=== PATIENT | female | born 1945 | race Caucasian/White ===

== ENCOUNTER → 2017-12-15 | Outpatient (CLI) | payer MEDICARE, BC ==
[~2017-12-15] MED LIST: ADVAIR INH; ALBUTEROL SULF INH; ALBUTEROL TX; ALBUTEROL1.25 MG/3 NEB; ANORO INH; ASPIRIN81 M3 PO; BACTRIM DS TAB1 EACH PO; BUDESONIDE0.5 MG/2 M NEB; CALCIUM 600 MG1 EAC4 PO; CIMETIDINE300 MG PO; LORTAB 10-5001 EACH PO; MIRALAX PO; MIRALAX119 GM PO; MIRALAX255 GM PO; OXYGEN NS; PREDNISONE20 MG PO; PRILOSEC40 MG PO; PROAIR HFA INH8.5 GM INH; PROAIR HFA INH8.5 GM PO; PROPYLTHIOURACI50 MG PO; STOOL SOFTENER1 EAC2 PO; TYLENOL PO; ULTRAM 50MG50 MG PO; Z.0.BISOPROLOL FUMAR PO; Z.0.DORZOLAMIDE-TIM1 OU; Z.0.MULTIVITAMINS1 E PO; Z.0.NORVASC10 MG PO; Z.0.SIMVASTATIN20 MG PO; ZANTAC150 MG PO; ZEBETA10 MG PO; [UNRECOGNIZED DRUG - OTHER]; [UNRECOGNIZED DRUG - OTHER] PO
--- NOTE | 2017-12-15 10:23 | Diagnostic Imaging Report ---
PROCEDURE:X-RAY RIGHT SHOULDER, COMPLETE COMPARISON:Chest radiograph 02/02/17. INDICATIONS:RIGHT SHOULDER PAIN FINDINGS: No acute, displaced fracture or dislocation. The humeral head projects appropriately adjacent to the glenoid. Moderate degenerative changes of the acromioclavicular and glenohumeral joints. Soft tissues unremarkable. Right lung partially visualized, well aerated. Stable midlung calcification relative to chest radiograph 02/02/2017. CONCLUSION: No acute osseous abnormality. Moderate acromioclavicular and glenohumeral degenerative joint disease. Dictated by: Alex Porter M.D. on 12/15/2017 at 10:29 Electronically approved by: Alex Porter M.D. on 12/15/2017 at 10:29
== END ==
LOC: RAD 09:44
PROVIDERS: ATTEND Family Medicine
DX: M25.511 Pain in right shoulder (principal)

== ENCOUNTER 2018-01-30 22:05 | Emergency (ER) | payer MEDICARE, BC ==
[~2018-01-30] VITALS: Ht 154.9 cm; Wt 43.5 kg
--- OUTSIDE RECORDS SUMMARY | 2018-01-30 22:10 | XMS REPORT ---
Author Author [facility] Address Unknown Phone Unavailable Care Team Providers Care Architectural Examiner Name Role Phone Ronald MCBRIDE Unavailable Unavailable SWEET, Mary LAIRD Unavailable Unavailable Problems This patient has no known problems. Allergies, Adverse Reactions, Alerts This patient has no known allergies or adverse reactions. Medications This patient has no known medications. Results Test Description Test Time Test Comments Text Results Atomic Results Result Comments SHOULDER RIGHT COMPLETE 2017-12-15 10:29:00 [facility] [address] [address] Patient Name: EVAN MICHAEL MR #: [id number] : 1945 Age/Sex: 72/F Req #: [id number] Adm Physician: Ordered by: JOSEPH MCBRIDE MD Report #: [id number] Location: [facility] Room/Bed: Procedure: [id number] DX/SHOULDER RIGHT COMPLETE Exam Date: 12/15/17 Exam Time: 1000 REPORT STATUS: Signed PROCEDURE: X-RAY RIGHT SHOULDER, COMPLETE COMPARISON: Chest radiograph 02/02/17. INDICATIONS: RIGHT SHOULDER PAIN FINDINGS: No acute, displaced fracture or dislocation. The humeral head projects appropriately adjacent to the glenoid. Moderate degenerative changes of the acromioclavicular and glenohumeral joints. Soft tissues unremarkable. Right lung partially visualized, well aerated. Stable midlung calcification relative to chest radiograph 02/02/2017. CONCLUSION: No acute osseous abnormality. Moderate acromioclavicular and glenohumeral degenerative joint disease. Dictated by: Matias Garrett M.D. on 12/15/2017 at 10:29 Electronically approved by: Matias Garrett M.D. on 12/15/2017 at 10:29 Dictated By: MATIAS GARRETT MD 1029 Transcribed By: RAJI on 12/15/17 1029 COPY TO: JOSEPH MCBRIDE MD CT CHEST [address] [place] [address] Patient Name: EVAN MICHAEL MR #: [id number] : 1945 Age/Sex: 71/F Req #: [id number] Adm Physician: Ordered by: AMMON ALMENDAREZ MD Report #: [id number] Location: ER Room/Bed: Procedure: [id number] CT/CT CHEST W Exam Date: 02/02/17 Exam Time: 2215 REPORT STATUS: Signed EXAM: CT Chest WITH contrast 02/02/2017 10:05 PM INDICATION: Pulmonary embolism, shortness of breath, elevation the dimer. COMPARISON: Thoracic spine on 12/10/2016 TECHNIQUE: Chest was scanned utilizing a multidetector helical scanner from the lung apex through the level of the adrenal glands without administration of IV contrast. Coronal and sagittal reformations were obtained. Pulmonary embolism protocol was performed. IV CONTRAST: 100 mL of Isovue-370 RADIATION DOSE: Total DLP: 329.08 mGy*cm Estimated effective dose: (DLP x 0.014 x size factor) mSv COMPLICATIONS: None FINDINGS: LINES/ TUBES: None. LUNGS AND AIRWAYS: Mild centrilobular emphysema present. Calcified granuloma noted in the right lower lobe. Airways are normal. PLEURA: The pleural spaces are cl ear. HEART AND MEDIASTINUM: The thyroid gland is normal. No mediastinal, hilar or axillary lymphadenopathy. The heart is normal in size.. There is no pericardial effusion. There are mild atherosclerotic calcifications in the aorta and coronary arteries. The pulmonary artery measures 2.8 cm in diameter UPPER ABDOMEN: Limited non-contrast views of the upper abdomen show no abnormality within the visualized liver, spleen, pancreas, or kidneys. The adrenal glands are normal. BONES: Chronic deformity of T8 status post vertebroplasty consistent with subacute/recent fracture, new when compared with prior MRI on 12/10/2016 SOFT TISSUES: Unremarkable. IMPRESSION: 1. No evidence of pulmonary embolism. 2. Centrilobular emphysema is present. 3. Atherosclerotic disease of the thoracic aorta and branches including coronary arteries 4. T8 vertebroplasty status post compression deformity. Signed by: Dr. Kaz Reyes M.D. on 02/02/2017 11:11 PM Dictated By: KAZ BECK MD 10 Transcribed By: LUCINDA on 02/02/172310 COPY TO: AMMON ALMENDAREZ MD CHEST SINGLE (PORTABLE) [place] [address] Patient Name: EVAN MICHAEL MR #: [id number] : 1945 Age/Sex: 71/F Req #: [id number] Adm Physician: Ordered by: BENJIE MCKEON Report #: [id number] Location: ER Room/Bed: Procedure: [id number] DX/CHEST SINGLE (PORTABLE) Exam Date: 02/02/17 Exam Time: 1919 REPORT STATUS: Signed Examination: Single AP view of the chest. COMPARISON: None. INDICATION: Shortness of breath DISCUSSION: Lines/tubes: None. Lungs: Prominent interstitial markings. Linear granuloma right midlung. No focal pneumonia. Pleura: There is no pleural effusion or pneumothorax. Heart and mediastinum: The heart and the mediastinum are unremarkable. Bones and soft tissues: No acute bony abnormalities. IMPRESSION: 1. No acute cardiopulmonary abnormalities. Signed by: Dr. Danielle Dash M.D. on 02/02/2017 7:38 PM Dictated By: DANIELLE DASH MD 37 Transcribed By: LUCINDA on 02/02/171937 COPY TO: BENJIE MCKEON MRI SPINE THORACIC [address] [place] [address] Patient Name: EVAN MICHAEL MR #: [id number] : 1945 Age/Sex: 71/F Req #: [id number] Adm Physician: Ordered by: JOSEPH MCBRIDE MD Report #: [id number] Location: MRI Room/Bed: Procedure: [id number] MRI/MRI SPINE THORACIC WO Exam Date: 12/10/16 Exam Time: 934 REPORT STATUS: Signed EXAMINATION: MRI of the thoracic spine without contrast HISTORY: Compression fracture, pain after moving things about a week ago COMPARISON: None. TECHNIQUE: Sagittal T1 without contrast, T2, and STIR; axial T2. Coronal T2. Intravenous contrast: none FINDINGS: Curvature: Increased thoracic kyphosis Vertebrae: -Acute mild compression fracture of T8 with diffuse bone marrow edema indicates that the vertebral body height by approximately 20%, no posterior retropulsion and no canal stenoses. -Deep Schmorl node in the inferior endplate of T9 with mild decreased vertebral body height. -Mild chronic compression fracture of the T5 and T6 vertebral bodies without significant retropulsion or canal stenosis. Discs: Mild diffuse disc at the T7-T8 T8-T9 and T9-T10 without significant stenoses. Spinal canal: No mass or abnormal blood vessels. Spinal cord: Normal size and signal intensity. Foramina: Unremarkable. Paraspinal soft tissues: Partially visualized T2 hyperintense foci in the liver and kidneys, perhaps cysts, please see dictation of abdomen CT of 02/11/2015 Proximal ribs: No abnormal signal intensity. IMPRESSION: 1. Acute mild compression fracture of the T8 vertebral body without posterior retropulsion or canal stenosis. No cord compression. 2. Mild chronic compression fracture of the T5 and T6 vertebral bodies. 3. Associated increased thoracic kyphosis. The findings were discussed with the attending physician's MURAL PAINTER Yaritza Jaimes on 12/11/2016 at 3:00 PM Signed by: Dr. Ankit Hernandez M.D. on 12/11/2016 3:11 PM Dictated By: ANKIT HERNANDEZ MD 1511 Transcribed By: LUCINDA on 12/11/16 1511 COPY TO: JOSEPH MCBRIDE MD
[2018-01-30] MEDS ORDERED: LIDOCAINE/PRILOCAINE 2.5-2.5% KIT ONE (23:06)
[2018-01-30] MEDS ORDERED: HYDROCODONE/APAP 5MG-325MG TAB ONE (23:06)
[2018-01-30] MEDS ORDERED: HYDROCODONE/APAP 5MG-325MG TAB PO ONE (23:15)
[2018-01-30] MEDS ORDERED: LIDOCAINE 5% PATCH TP ONE (23:15)
--- NOTE | 2018-01-30 23:30 | Diagnostic Imaging Report ---
EXAM: HIP LEFT 2-3 VW (+/- PELVIS) INDICATION: Fall, left hip and left knee pain COMPARISON: None FINDINGS: BONES: No acute fractures. JOINTS: No malalignment. SOFT TISSUES: Normal IMPRESSION: No acute pelvic or left hip fracture. Signed by: Dr. Luiza Carpio M.D. on 01/30/2018 11:26 PM
--- NOTE | 2018-01-30 23:31 | Diagnostic Imaging Report ---
EXAM: KNEE LEFT 1-2 VIEWS, AP and lateral INDICATION: Fall, left knee pain COMPARISON: None FINDINGS: BONES: No acute fractures. JOINTS: No malalignment. Calcification of the articular surface. SOFT TISSUES: Normal IMPRESSION: No left knee fracture. Chondrocalcinosis indicating CPPD. Signed by: Dr. Luiza Carpio M.D. on 01/30/2018 11:27 PM
[2018-01-30] MEDS ORDERED: ULTRAM50 MG PO (23:34)
[2018-01-31 00:03] VITALS: BP 122/88
== END 2018-01-30 23:59 | disposition home or self-care (01) ==
LOC: ER 22:05
DX: S76.012A Strain of muscle, fascia and tendon of left hip, initial encounter (principal); M25.552 Pain in left hip; M25.562 Pain in left knee; W18.39XA Other fall on same level, initial encounter; Y92.008 Other place in unspecified non-institutional (private) residence as the place of occurrence of the external cause; H35.30 Unspecified macular degeneration; F17.210 Nicotine dependence, cigarettes, uncomplicated

== ENCOUNTER 2018-04-06 21:09 | Emergency (ER) | payer MEDICARE, BC ==
[~2018-04-06] VITALS: Ht 154.9 cm; Wt 42.6 kg
[~2018-04-06 21:09] MED LIST changes: +ULTRAM50 MG PO
[2018-04-06] MEDS ORDERED: ASPIRIN 81 MG CHEW TAB PO ONE (21:15)
[2018-04-06] MEDS ORDERED: ALBUTEROL SULF 0.083% NEB SOLN 3 ML NEB NEB STA (21:17)
[2018-04-06] MEDS ORDERED: METHYLPREDNISOLONE SOD SUCC 125 MG/2ML VIAL IV ONE (21:30)
[2018-04-06] MEDS ORDERED: IPRATROPIUM BROMIDE 0.02% 2.5 ML NEB NEB ONE (21:30)
--- NOTE | 2018-04-06 22:02 | Diagnostic Imaging Report ---
CHEST SINGLE (PORTABLE), 04/06/2018 9:15 PM Technique: CHEST SINGLE (PORTABLE) Comparison: 02/02/2017 Clinical history: Shortness of breath Findings: See Impression. Partially imaged ACDF. Prior vertebroplasty. Impression: 1. Stable cardiomediastinal silhouette. 2. Emphysema/hyperinflation. Minimal right basilar and lingular opacity, stable. Increased density over the upper lung favor summation shadow related to technique. 3. No effusion or pneumothorax. Signed by: Dr Delma Cates MD on 04/06/2018 9:58 PM
[2018-04-06 22:03] LABS: BASOPHILS # (AUTO) 0.1 (0.0-0.1); BASOPHILS % 0.4 % (0.0-1.0); EOSINOPHILS # (AUTO) 0.1 (0.0-0.4); EOSINOPHILS % 0.6 % (0.0-6.0); HEMATOCRIT 43.1 % (34.2-44.1); HEMOGLOBIN 13.8 g/dL (12.0-16.0); LYMPHOCYTES # (AUTO) 1.6 (1.0-3.2); MEAN CORPUSCULAR HEMOGLOBIN 29.6 pg (28-32); MEAN CORPUSCULAR VOLUME 92.5 fL (81-99); MONOCYTES # (AUTO) 1.1 (0.2-0.8); MONOCYTES % 7.1 % (4.4-11.3); NEUTROPHILS # (AUTO) 12.7 (2.1-6.9); NEUTROPHILS % 81.6 % (38.7-80.0); PLATELET COUNT 318 x10e3/uL (140-360); RED BLOOD COUNT 4.66 x10e6/uL (3.6-5.1); RED CELL DISTRIBUTION WIDTH 12.8 % (11.7-14.4)
[2018-04-06 22:24] LABS: ALANINE AMINOTRANSFERASE 17 IU/L (0-55); ALBUMIN 3.8 g/dL (3.5-5.0); ALBUMIN/GLOBULIN RATIO 1.3 (0.8-2.0); ALKALINE PHOSPHATASE 96 IU/L (40-150); ANION GAP 13.8 mmol/L (8-16); BLOOD UREA NITROGEN 10 mg/dL (7-26); BUN/CREATININE RATIO 13 (6-25); CALCIUM 10.5 mg/dL (8.4-10.2); CARBON DIOXIDE 27 mmol/L (22-29); CHLORIDE 98 mmol/L (98-107); CREATINE KINASE 38 IU/L (29-168); CREATININE, SERUM 0.77 mg/dL (0.57-1.11); EST GLOMERULAR FILTRATION RATE > 60 ML/MIN (60-); GLUCOSE 118 mg/dL (74-118); POTASSIUM 3.8 mmol/L (3.5-5.1); SODIUM 135 mmol/L (136-145)
== END 2018-04-06 23:02 | disposition home or self-care (01) ==
LOC: ER 21:09
DX: R06.00 Dyspnea, unspecified (principal); R05 Cough; J20.9 Acute bronchitis, unspecified; J44.1 Chronic obstructive pulmonary disease with (acute) exacerbation; Z99.81 Dependence on supplemental oxygen; H35.30 Unspecified macular degeneration; F17.210 Nicotine dependence, cigarettes, uncomplicated
CPT/HCPCS: 36415; 71045; 80053; 82550; 82553; 83880; 84484; 85025; 93005; 94640; 99284; J2930

== ENCOUNTER 2018-11-04 23:03 | Emergency (ER) | payer MEDICARE, BC ==
[~2018-11-04] VITALS: Ht 154.9 cm; Wt 42.6 kg
[2018-11-04] MEDS ORDERED: ALBUTEROL/IPRATROPIUM 3 ML NEB NEB STA (23:24)
[2018-11-04 23:30] LABS: BASOPHILS # (AUTO) 0.1 (0.0-0.1); BASOPHILS % 0.7 % (0.0-1.0); EOSINOPHILS # (AUTO) 0.1 (0.0-0.4); EOSINOPHILS % 1.8 % (0.0-6.0); HEMATOCRIT 40.4 % (34.2-44.1); HEMOGLOBIN 12.9 g/dL (12.0-16.0); LYMPHOCYTES # (AUTO) 1.8 (1.0-3.2); LYMPHOCYTES % 24.9 % (18.0-39.1); MEAN CORPUSCULAR HEMOGLOBIN 29.5 pg (28-32); MEAN CORPUSCULAR HGB CONC 31.9 g/dL (31-35); MEAN CORPUSCULAR VOLUME 92.4 fL (81-99); MONOCYTES # (AUTO) 1.1 (0.2-0.8); NEUTROPHILS # (AUTO) 4.2 (2.1-6.9); NEUTROPHILS % 57.2 % (38.7-80.0); PLATELET COUNT 254 x10e3/uL (140-360); RED BLOOD COUNT 4.37 x10e6/uL (3.6-5.1)
[2018-11-05] MEDS ORDERED: PREDNISONE20 MG PO
--- NOTE | 2018-11-05 00:07 | Diagnostic Imaging Report ---
EXAMINATION: CHEST SINGLE (PORTABLE) INDICATION: SOB, HX COPD COMPARISON: 04/06/2018. FINDINGS: TUBES and LINES: None. LUNGS: The lungs are hyperinflated. Biapical pleural-parenchymal scarring. Diffuse coarsened pulmonary interstitium particularly in the lower lobes. There is no evidence of pneumonia or pulmonary edema. PLEURA: No pleural effusion or pneumothorax. HEART AND MEDIASTINUM: The cardiomediastinal silhouette is unremarkable. There are atherosclerotic calcifications within the aorta. BONES AND SOFT TISSUES: No acute osseous lesion. Lower cervical fusion hardware. UPPER ABDOMEN: No free air under the diaphragm. IMPRESSION: COPD and chronic interstitial changes. No focal consolidation. Signed by: Dr. Foreign Velez M.D. on 11/05/2018 12:04 AM
[2018-11-05 00:31] VITALS: BP 124/83
[2018-11-05 05:34] LABS: ALANINE AMINOTRANSFERASE 18 IU/L (0-55); ALBUMIN 3.9 g/dL (3.5-5.0); ALBUMIN/GLOBULIN RATIO 1.3 (0.8-2.0); ALKALINE PHOSPHATASE 101 IU/L (40-150); ANION GAP 13.1 mmol/L (8-16); BLOOD UREA NITROGEN 11 mg/dL (7-26); BUN/CREATININE RATIO 17 (6-25); CALCIUM 10.4 mg/dL (8.4-10.2); CARBON DIOXIDE 28 mmol/L (22-29); CHLORIDE 103 mmol/L (98-107); CREATININE, SERUM 0.66 mg/dL (0.57-1.11); EST GLOMERULAR FILTRATION RATE > 60 ML/MIN (60-); GLUCOSE 103 mg/dL (74-118); POTASSIUM 4.1 mmol/L (3.5-5.1); SODIUM 140 mmol/L (136-145)
== END 2018-11-05 00:32 | disposition home or self-care (01) ==
LOC: ER 23:03
DX: R06.00 Dyspnea, unspecified (principal); J44.1 Chronic obstructive pulmonary disease with (acute) exacerbation; H35.30 Unspecified macular degeneration; Z99.81 Dependence on supplemental oxygen; F17.210 Nicotine dependence, cigarettes, uncomplicated
CPT/HCPCS: 36415; 71045; 80053; 85025; 93005; 94640; 99284

== ENCOUNTER 2018-11-10 08:13 | Emergency (ER) | payer MEDICARE, BC ==
[~2018-11-10] VITALS: Ht 154.9 cm; Wt 42.6 kg
[2018-11-10] MEDS ORDERED: ALBUTEROL/IPRATROPIUM 3 ML NEB NEB ONE (08:45)
[2018-11-10] MEDS ORDERED: CEFTRIAXONE SOD 1 GM/NS 50 ML 50 ML IV ONE (08:45)
[2018-11-10] MEDS ORDERED: METHYLPREDNISOLONE SOD SUCC 125 MG/2ML VIAL IV ONE (08:45)
[2018-11-10 09:08] LABS: BASOPHILS % 0.2 % (0.0-1.0); EOSINOPHILS % 0.4 % (0.0-6.0); LYMPHOCYTES # (AUTO) 1.4 (1.0-3.2); LYMPHOCYTES % 13.8 % (18.0-39.1); MEAN CORPUSCULAR HEMOGLOBIN 29.2 pg (28-32); MEAN CORPUSCULAR HGB CONC 31.7 g/dL (31-35); MEAN CORPUSCULAR VOLUME 92.1 fL (81-99); MONOCYTES # (AUTO) 1.1 (0.2-0.8); MONOCYTES % 10.6 % (4.4-11.3); NEUTROPHILS # (AUTO) 7.5 (2.1-6.9); NEUTROPHILS % 74.8 % (38.7-80.0); PLATELET COUNT 323 x10e3/uL (140-360); RED BLOOD COUNT 4.45 x10e6/uL (3.6-5.1); RED CELL DISTRIBUTION WIDTH 13.7 % (11.7-14.4)
[2018-11-10 09:11] LABS: INR 0.91; PARTIAL THROMBOPLASTIN TIME 32.3 seconds (23.8-35.5); PROTHROMBIN TIME 12.7 seconds (11.9-14.5)
[2018-11-10 09:18] LABS: ALANINE AMINOTRANSFERASE 17 IU/L (0-55); ALBUMIN 3.7 g/dL (3.5-5.0); ALBUMIN/GLOBULIN RATIO 1.2 (0.8-2.0); ALKALINE PHOSPHATASE 95 IU/L (40-150); ANION GAP 10.6 mmol/L (8-16); BLOOD UREA NITROGEN 12 mg/dL (7-26); BUN/CREATININE RATIO 18 (6-25); CALCIUM 10.3 mg/dL (8.4-10.2); CARBON DIOXIDE 34 mmol/L (22-29); CHLORIDE 96 mmol/L (98-107); CREATINE KINASE 24 IU/L (29-168); CREATININE, SERUM 0.68 mg/dL (0.57-1.11); EST GLOMERULAR FILTRATION RATE > 60 ML/MIN (60-); GLUCOSE 99 mg/dL (74-118); POTASSIUM 3.6 mmol/L (3.5-5.1); SODIUM 137 mmol/L (136-145)
--- NOTE | 2018-11-10 09:33 | Diagnostic Imaging Report ---
Chest, 1 view, 11/10/2018. History: Shortness of breath. Comparison: 11/04/2018. Findings: The cardiomediastinal silhouette and pulmonary vasculature are within normal limits for a portable exam. There is no focal consolidation or pleural effusion. Mild interstitial prominence is unchanged. There are no acute osseous or soft tissue abnormalities. Impression: No acute cardiopulmonary abnormality. Signed by: Gerald Laws on 11/10/2018 9:29 AM
[2018-11-10 09:48] LABS: BILIRUBIN,URINE NEGATIVE (NEGATIVE); CLARITY,URINE CLEAR (CLEAR); COLOR,URINE YELLOW (YELLOW); KETONES,URINE NEGATIVE (NEGATIVE); LEUKOCYTE ESTERASE ,URINE NEGATIVE (NEGATIVE); NITRITE,URINE NEGATIVE (NEGATIVE); PROTEIN,URINE DIPSTICK NEGATIVE (NEGATIVE); URINE UROBILINOGEN 0.2 mg/dL (0.2 - 1)
[2018-11-10 10:29] VITALS: BP 122/62
[2018-11-10 10:48] LABS: BACTERIA,URINE FEW /HPF; EPITHELIAL CELLS,URINE FEW /LPF; WBC,URINE (MAN) 0-5 /HPF (0-5)
== END 2018-11-10 10:43 | disposition home or self-care (01) ==
LOC: ER 08:13
DX: R06.00 Dyspnea, unspecified (principal); R05 Cough; J44.1 Chronic obstructive pulmonary disease with (acute) exacerbation; I10 Essential (primary) hypertension; Z99.81 Dependence on supplemental oxygen; F17.210 Nicotine dependence, cigarettes, uncomplicated
CPT/HCPCS: 36415; 71045; 80053; 81001; 82550; 82553; 83605; 84484; 85025; 85610; 85730; 87040; 93005; 94640; 99284; J0696; J2930

== ENCOUNTER 2019-01-19 15:53 | Observation (INO) | payer MEDICARE, BC ==
[~2019-01-19] VITALS: Ht 154.9 cm; Wt 42.6 kg
[2019-01-19] MEDS ORDERED: IPRATROPIUM BROMIDE 0.02% 2.5 ML NEB NEB STA (16:13)
[2019-01-19] MEDS ORDERED: METHYLPREDNISOLONE SOD SUCC 125 MG/2ML VIAL IV STA (16:13)
[2019-01-19] MEDS ORDERED: FAMOTIDINE 20 MG/2 ML VIAL IV ONE (16:13)
[2019-01-19] MEDS ORDERED: SODIUM CHLORIDE 0.9% 1000ML 1,000 ML IV STA (16:13)
[2019-01-19] MEDS ORDERED: ALBUTEROL SULF 0.083% NEB SOLN 3 ML NEB NEB ONE (16:13)
[2019-01-19] MEDS ORDERED: AZITHROMYCIN 500MG/NS 250 ML 250 ML IV ONE (16:13)
[2019-01-19] MEDS ORDERED: CEFTRIAXONE SOD 1 GM VIAL IV SCH (16:15)
[2019-01-19] MEDS ORDERED: AZITHROMYCIN 500MG/SOD CHL 0.9% 250ML BAG IV SCH (16:15)
[2019-01-19] MEDS ORDERED: CEFTRIAXONE SOD 1 GM/NS 50 ML 50 ML IV ONE (16:45)
--- NOTE | 2019-01-19 16:50 | Diagnostic Imaging Report ---
EXAMINATION: CHEST SINGLE (PORTABLE) INDICATION: Shortness of breath ^ERMD ORDER ^[id number] ^1630 ^Y COMPARISON: 11/10/2018 FINDINGS: TUBES and LINES: None. LUNGS: Lungs are well inflated. Chronic appearing changes in the lungs. There is no evidence of pneumonia or pulmonary edema. PLEURA: No pleural effusion or pneumothorax. HEART AND MEDIASTINUM: The cardiomediastinal silhouette is unremarkable. BONES AND SOFT TISSUES: No acute osseous lesion. Soft tissues are unremarkable. Postsurgical change at T8 vertebral body UPPER ABDOMEN: No free air under the diaphragm. IMPRESSION: No acute thoracic abnormality. Signed by: Dr. Steven Nation M.D. on 01/19/2019 4:47 PM
[2019-01-19 17:03] LABS: BASOPHILS % 0.5 % (0.0-1.0); EOSINOPHILS # (AUTO) 0.1 (0.0-0.4); HEMATOCRIT 40.4 % (34.2-44.1); HEMOGLOBIN 12.9 g/dL (12.0-16.0); LYMPHOCYTES # (AUTO) 1.2 (1.0-3.2); LYMPHOCYTES % 14.7 % (18.0-39.1); MEAN CORPUSCULAR HEMOGLOBIN 29.8 pg (28-32); MEAN CORPUSCULAR HGB CONC 31.9 g/dL (31-35); MEAN CORPUSCULAR VOLUME 93.3 fL (81-99); MONOCYTES # (AUTO) 0.6 (0.2-0.8); MONOCYTES % 7.1 % (4.4-11.3); NEUTROPHILS # (AUTO) 6.3 (2.1-6.9); NEUTROPHILS % 76.2 % (38.7-80.0); PLATELET COUNT 363 x10e3/uL (140-360); RED BLOOD COUNT 4.33 x10e6/uL (3.6-5.1); RED CELL DISTRIBUTION WIDTH 13.3 % (11.7-14.4)
[2019-01-19] MEDS: SODIUM CHLORIDE 0.9% 1000ML 1,000 ML IV SCH ×2 (17:10→21:55)
[2019-01-19 17:14] LABS: INR 0.88; PROTHROMBIN TIME 12.4 seconds (11.9-14.5)
[2019-01-19 17:15] LABS: PARTIAL THROMBOPLASTIN TIME 31.6 seconds (23.8-35.5)
[2019-01-19 17:26] LABS: ALANINE AMINOTRANSFERASE 11 IU/L (0-55); ALBUMIN 3.7 g/dL (3.5-5.0); ALBUMIN/GLOBULIN RATIO 1.2 (0.8-2.0); ALKALINE PHOSPHATASE 64 IU/L (40-150); ANION GAP 13.3 mmol/L (8-16); BLOOD UREA NITROGEN 9 mg/dL (7-26); BUN/CREATININE RATIO 21 (6-25); CALCIUM 11.5 mg/dL (8.4-10.2); CARBON DIOXIDE 28 mmol/L (22-29); CHLORIDE 100 mmol/L (98-107); CREATINE KINASE 26 IU/L (29-168); CREATININE, SERUM 0.42 mg/dL (0.57-1.11); EST GLOMERULAR FILTRATION RATE > 60 ML/MIN (60-); GLUCOSE 116 mg/dL (74-118); LIPASE 12 U/L (8-78); MAGNESIUM 1.9 MG/DL (1.3-2.1); POTASSIUM 3.3 mmol/L (3.5-5.1); SODIUM 138 mmol/L (136-145)
[2019-01-19 17:48] LABS: THYROID STIMULATING HORMONE 0.531 uIU/mL (0.350-4.940)
[2019-01-19] MEDS ORDERED: NICOTINE 14 MG/EA PATCH TOP SCH (18:00)
[2019-01-19] MEDS ORDERED: POTASSIUM CHLORIDE 20 MEQ TAB CR PO ONE (18:20)
[2019-01-19] MEDS: METHYLPREDNISOLONE SOD SUCC 40 MG/ML VIAL 1ML IV SCH ×2 (18:50→21:41)
[2019-01-19] MEDS ORDERED: PROAIR HFA INH8.5 GM INH (19:08)
[2019-01-19] MEDS ORDERED: BUDESONIDE0.5 MG/2 M INH (19:08)
[2019-01-19] MEDS ORDERED: MIRALAX17 GM PO (19:12)
[2019-01-19] MEDS ORDERED: DORZOLAMIDE HCL10 ML OU (19:12)
[2019-01-19] MEDS ORDERED: HYDROCODONE-HO473 ML PO (19:12)
[2019-01-19 21:00] VITALS: BP 133/80
[2019-01-19 21:17] LABS: BILIRUBIN,URINE NEGATIVE (NEGATIVE); CLARITY,URINE CLEAR (CLEAR); COLOR,URINE YELLOW (YELLOW); KETONES,URINE NEGATIVE (NEGATIVE); LEUKOCYTE ESTERASE ,URINE NEGATIVE (NEGATIVE); NITRITE,URINE NEGATIVE (NEGATIVE); PROTEIN,URINE DIPSTICK NEGATIVE (NEGATIVE); URINE UROBILINOGEN 0.2 mg/dL (0.2 - 1)
[2019-01-19 21:30] VITALS: BP 133/80
[2019-01-19] MEDS: FAMOTIDINE 20 MG/2 ML VIAL IV SCH (21:41)
--- NOTE | 2019-01-19 22:30 | NUR ---
Patient requesting pain med. Paged Dr. Myers for orders.
--- NOTE | 2019-01-19 23:15 | NUR ---
Patient requesting pain med. Paged Dr. Myers for orders.
--- NOTE | 2019-01-20 00:44 | NUR ---
SPOKE WITH DR. MCBRIDE, RECEIVED ORDERS
[2019-01-20] MEDS ORDERED: TRAMADOL HCL 50 MG TAB PO PRN (00:45)
[2019-01-20] MEDS ORDERED: GUAIFENESIN/CODEINE 10 ML CUP PO PRN (00:45)
[2019-01-20 04:00] VITALS: BP 106/60
[2019-01-20] MEDS: METHYLPREDNISOLONE SOD SUCC 40 MG/ML VIAL 1ML IV SCH (05:59)
[2019-01-20 06:38] LABS: BASOPHILS % 0.3 % (0.0-1.0); EOSINOPHILS # (AUTO) 0.2 (0.0-0.4); EOSINOPHILS % 2.3 % (0.0-6.0); HEMATOCRIT 41.6 % (34.2-44.1); HEMOGLOBIN 13.1 g/dL (12.0-16.0); LYMPHOCYTES # (AUTO) 0.7 (1.0-3.2); LYMPHOCYTES % 10.8 % (18.0-39.1); MEAN CORPUSCULAR HEMOGLOBIN 29.7 pg (28-32); MEAN CORPUSCULAR HGB CONC 31.5 g/dL (31-35); MEAN CORPUSCULAR VOLUME 94.3 fL (81-99); MONOCYTES # (AUTO) 0.1 (0.2-0.8); MONOCYTES % 1.2 % (4.4-11.3); NEUTROPHILS # (AUTO) 5.6 (2.1-6.9); NEUTROPHILS % 84.9 % (38.7-80.0); PLATELET COUNT 377 x10e3/uL (140-360); RED BLOOD COUNT 4.41 x10e6/uL (3.6-5.1); RED CELL DISTRIBUTION WIDTH 13.5 % (11.7-14.4)
[2019-01-20 07:08] LABS: ALANINE AMINOTRANSFERASE 17 IU/L (0-55); ALBUMIN 3.7 g/dL (3.5-5.0); ALBUMIN/GLOBULIN RATIO 1.1 (0.8-2.0); ALKALINE PHOSPHATASE 79 IU/L (40-150); ANION GAP 16.9 mmol/L (8-16); BLOOD UREA NITROGEN 9 mg/dL (7-26); BUN/CREATININE RATIO 15 (6-25); CALCIUM 9.9 mg/dL (8.4-10.2); CARBON DIOXIDE 25 mmol/L (22-29); CHLORIDE 102 mmol/L (98-107); CREATININE, SERUM 0.61 mg/dL (0.57-1.11); EST GLOMERULAR FILTRATION RATE > 60 ML/MIN (60-); GLUCOSE 122 mg/dL (74-118); PHOSPHORUS 3.4 MG/DL (2.3-4.7); POTASSIUM 3.9 mmol/L (3.5-5.1); SODIUM 140 mmol/L (136-145)
[2019-01-20 07:34] LABS: CREATINE KINASE MB 3.7 ng/mL (0-5.0)
[2019-01-20 08:00] VITALS: BP 130/58
[2019-01-20] MEDS ORDERED: PREDNISONE20 MG PO (08:00)
[2019-01-20] MEDS ORDERED: DOXYCYCLINE HY100 MG PO (08:01)
[2019-01-20] MEDS: FAMOTIDINE 20 MG/2 ML VIAL IV SCH (08:35)
--- NOTE | 2019-01-20 09:01 | NUR ---
Pt discharged at this time to home. Pt verbalized understanding of all discharge instructions and follow up appts. Pt was discharged with prescriptions. Pt denies any pain at this time.
--- NOTE | 2019-01-20 13:58 | History and Physical ---
REASON FOR ADMISSION: A 73-year-old female, comes in with acute exacerbation of COPD. HISTORY OF PRESENT ILLNESS: The patient is a 73-year-old female with a history of COPD, O2 dependent, steroid dependent, in her usual state of health until the patient started to have sudden acute shortness of breath yesterday. The patient came into the ER, was given some steroids, Solu-Medrol, and also was given some breathing treatment, did feel better, but was kept overnight to watch her breathing status. Currently, the patient is feeling better. No chest pains. No shortness of breath. She is saturating well at 92%. CO2 levels are good. PAST MEDICAL HISTORY: 1. History of COPD as mentioned above. 2. History of hypertension. 3. History of glaucoma. 4. History of hypothyroidism. 5. History of constipation. 6. 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 PAST SURGICAL HISTORY: 1. Total abdominal hysterectomy. 2. Cholecystectomy. 3. Tonsillectomy. 4. Cervical surgery on 11/10/2012. FAMILY HISTORY: Positive for hypertension and hyperlipidemia. SOCIAL HISTORY: No EtOH. No IV drug abuse. The patient has stopped smoking in the last couple of months according to her. REVIEW OF SYSTEMS: Negative for chest pain. Positive for shortness of breath. No nausea, vomiting, or diarrhea. Positive for constipation. No rectal bleeding. No hematochezia. No hematemesis and no blurry vision or diplopia, or headaches. PHYSICAL EXAMINATION: GENERAL: The patient is alert and oriented x3. No acute distress. VITAL SIGNS: Temperature is 97.0, pulse of 80, respirations of 18, blood pressure is 106/60, pulse oximetry of 97% on 2 L of oxygen. HEENT: Normocephalic, atraumatic. Pupils reactive to light and accommodation. The patient is cachectic. CVS: S1 and S2 normal. Regular rate and rhythm. ABDOMEN: Nontender, nondistended. NECK: Thyroid normal. EXTREMITIES: No clubbing, no cyanosis, no edema. LABORATORY VALUES: Today's white count is 6.57, neutrophil count is 84.9, hemoglobin of 13.1, hematocrit of 41.6. Chemistries are pending. Sodium is 138, potassium 3.3, calcium of 11.5, and troponin 0.039. BNP was 100. IMAGING STUDIES: Chest x-ray shows no acute thoracic abnormalities. ASSESSMENT AND PLAN: A 73-year-old female with a history of chronic obstructive pulmonary disease with acute exacerbation. The patient is feeling better. We can convert her to an observation status. The patient can be discharged on steroids and p.o. antibiotics. The patient will be followed with me on Wednesday, 2 days postdischarge and we will continue monitoring the patient. We will continue home medications and further recommendations as an outpatient. She has oxygen at home and also has albuterol, Atrovent treatments at home and bronchodilators at home. MD ALEX Varghese/MODL /[id number]
[2019-01-20] MEDS ORDERED: CEFTRIAXONE SOD 1 GM/NS 50 ML 50 ML IV SCH (16:00)
[2019-01-20] MEDS ORDERED: AZITHROMYCIN 500MG/NS 250 ML 250 ML IV SCH (17:00)
== END 2019-01-20 09:07 | disposition home or self-care (01) ==
LOC: ER 15:53 → INTOOBSV 16:35 → ERHOLD 16:35 → MED/SURG3 21:00
PROVIDERS: ADMIT Family Medicine; ATTEND Family Medicine
DX: J44.1 Chronic obstructive pulmonary disease with (acute) exacerbation (principal); R09.02 Hypoxemia; Z72.0 Tobacco use; Z91.048 Other nonmedicinal substance allergy status; Z99.81 Dependence on supplemental oxygen; I10 Essential (primary) hypertension; M19.90 Unspecified osteoarthritis, unspecified site; Z90.49 Acquired absence of other specified parts of digestive tract; R64 Cachexia; E03.9 Hypothyroidism, unspecified; K59.00 Constipation, unspecified; H40.9 Unspecified glaucoma; Z82.49 Family history of ischemic heart disease and other diseases of the circulatory system; Z68.1 Body mass index [BMI] 19.9 or less, adult
CPT/HCPCS: 36415 ×2; 71045; 80053 ×2; 81001; 82550 ×2; 82553 ×2; 83690; 83735 ×2; 83880; 84100; 84443; 84484 ×2; 85025 ×2; 85610; 85730; 87040; 87400; 93005; 94640; 99284; G0378 ×2; J0456; J0696; J2920 ×2; J2930; J7030

== ENCOUNTER 2019-09-02 05:19 | Observation (INO) | payer MEDICARE, BC ==
[~2019-09-02] VITALS: Ht 154.9 cm; Wt 42.6 kg
[2019-09-02] VITALS (7 sets, daily range): BP systolic 104–131; BP diastolic 58–86
[~2019-09-02 05:19] MED LIST changes: +BUDESONIDE0.5 MG/2 M INH; +DORZOLAMIDE HCL10 ML OU; +DOXYCYCLINE HY100 MG PO; +HYDROCODONE-HO473 ML PO; +MIRALAX17 GM PO; +PANTOPRAZOLE SO40 MG PO
--- OUTSIDE RECORDS SUMMARY | 2019-09-02 05:24 | XMS REPORT | Continuity of Care Document ---
Author Author [facility] t Organization [facility] Address [address] [place] [address] Phone Unavailable Care Team Providers Care Design Maker Name Role Phone Ronald MCBRIDE MD PCP Ronald MCBRIDE Attphys Unavailable MANTommy BARRERA Attphys Unavailable Ronald CARRENO Attphys Unavailable Yolanda SEQUEIRA Attphys Unavailable Mary ALMENDAREZ Attphys Unavailable Ronald MCBRIDE Admphys Unavailable Payers Payer Name Policy Type Policy Number Effective Date Expiration Date S ource Medicare A & B [id number] 2009 00:00:00 [facility] [id number] 2009 00:00:00 [facility] Problems Condition Name Condition Details Condition Category Status Onset Date Resolution Date Last Treatment Date Treating Clinician Comments Source 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 Active [facility] Chronic obstructive pulmonary disease with acute exace rbation COPD with acute exacerbation Problem Active [facility] Hypoxemia Hypoxemia Problem Active [facility] Tobacco abuse Tobacco abuse Problem Active [facility] Allergies, Adverse Reactions, Alerts Allergy Name Allergy Type Status Severity Reaction(s) Onset Date Inacti ve Date Treating Clinician Comments Source PLASTIC TAPE Allergy to Substance Active Mild 2016-09-18 00:00:0 0 [facility] Medications Ordered Medication Name Filled Medication Name Start Date Stop Da te Current Medication? Ordering Clinician Indication Dosage Frequency Signature (SIG) Comments Components Source Prednisone 20 Mg Tab, 40 Mg Oral Prednisone 20 Mg Tab, 40 Mg Oral 2018-11-05 00:00:00 2018-11-10 00:00:00 Saira Wu Md 40 Elsa ly [facility] Tramadol Hcl (Ultram) 50 Mg Tablet, 50 Mg Oral Tramado l Hcl (Ultram) 50 Mg Tablet, 50 Mg Oral 2018-01-30 00:00:00 2018-11-10 00:00:00 Saira Wu Md 50 Every 6 Hours as needed for Pain [facility] Albuterol Sulfate 1.25 Mg/3 Ml Vial.neb Albuterol Sulfate 1. 25 Mg/3 Ml Vial.neb Yes Four Times Daily [facility] Albuterol Sulfate (Proair Hfa Inhaler*) 8.5 Gm Inh Alb uterol Sulfate (Proair Hfa Inhaler*) 8.5 Gm Inh Yes 2 As Needed [facility] Amlodipine Besylate (Norvasc) 10 Mg Tablet Amlodipine Besylate (Norvasc) 10 Mg Tablet Yes 10 Daily [facility] Bisoprolol Fumarate (Zebeta) 10 Mg Tab Bisoprolol Fumarate (Zebe ta) 10 Mg Tab Yes 5 Daily [facility] Budesonide 0.5 Mg/2 Ml Ampul.neb Budesonide 0.5 Mg/2 Ml Ampul.neb Yes 1 Twice A Day [facility] Calc/D3/Mag/Zn/Web Database Developer/[place] (Calcium 600 Mg + Vit D Tab) 1 Each Tablet Calc/D3/Mag/Zn/Web Database Developer/[place] (Calcium 600 Mg + Vit D Tab) 1 Each Tablet Yes 1 Twice A Day [facility] Cimetidine 300 Mg Tablet Cimetidine 300 Mg Tablet Yes 300 Twice A Day [facility] Dorzolamide Hcl 10 Ml Drops Dorzolamide Hcl 10 Ml Drops Yes 1 Twice A Day [facility] Doxycycline Hyclate 100 Mg Capsule Doxycycline Hyclate 100 Mg Capsule Yes 100 Twice A Day [facility] Hydrocodone Bit/Homatrop Me-Br (Hydrocodone-Homatropin e Soln) 473 Ml Syrup Hydrocodone Bit/Homatrop Me-Br (Hydrocodone-Homatropine Soln) 473 Ml Syrup Yes 5 Every 6 Hours as needed for Cough [facility] Multivitamin (Multivitamins) 1 Each Tab.chew Multivita min (Multivitamins) 1 Each Tab.chew Yes 1 Daily [facility] Polyethylene Glycol 3350 (Miralax) 17 Gm Powd.pack Wei yethylene Glycol 3350 (Miralax) 17 Gm Powd.pack Yes 1 Daily [facility] Prednisone 20 Mg Tab Prednisone 20 Mg Tab Yes 20 Daily [facility] Propylthiouracil 50 Mg Tablet Propylthiouracil 50 Mg Tablet Yes 50 Twice A Day [facility] Sennosides/Docusate Sodium (Stool Softener Tablet) 1 E ach Tablet Sennosides/Docusate Sodium (Stool Softener Tablet) 1 Each Tablet Yes Daily [facility] Timolol Maleate/Dorzolam Hcl (Dorzolamide-Timolol Eye Drops) 10 Ml Drops Timolol Maleate/Dorzolam Hcl (Dorzolamide-Timolol Eye Drops) 10 Ml Drops Yes 1 Twice A Day [facility] Tramadol Hcl (Ultram 50MG*) 50 Mg Tab Tramadol Hcl (Ultram 50MG*) 5 0 Mg Tab Yes 50 Every 4 Hours as needed for Moderate Gino n (4-6) [facility] Albuterol Sulfate (Proair Hfa Inhaler*) 8.5 Gm Inh, Inhalation Albuterol Sulfate (Proair Hfa Inhaler*) 8.5 Gm Inh, Inhalation 2018-12-28 4 00:00:00 No As Needed [facility] Anoro , Inhalation Anoro , Inhalation 2018-11-10 00:00:00 No As Needed [facility] Tylenol , Oral Tylenol , Oral 2018-11-10 00:00:00 No As Needed [facility] Omeprazole (Prilosec) 40 Mg Capsule., 40 Mg Oral Ome prazole (Prilosec) 40 Mg Capsule., 40 Mg Oral 2015-12-27 00:00:00 No 40 D aily [facility] Albuterol Neb. Tx , Albuterol Neb. Tx , 2015-01-09 00:00:00 No Four Times Daily [facility] Bisoprolol Fumarate 5 Mg Tablet, 2.5 Mg Oral Bisoprolo l Fumarate 5 Mg Tablet, 2.5 Mg Oral 2015-01-09 00:00:00 No 2.5 Twice A Day [facility] Budesonide 0.5 Mg/[address], 2 Ml Nebullizer [place] sonide 0.5 Mg/[address], 2 Ml Nebullizer 2015-01-09 00:00:00 No 2 Twice A Day [facility] Cheritussin Syrup , Cheritussin Syrup , 2015-01-09 00:00:00 No Daily [facility] Hydrocodone Bit/Acetaminophen (Lortab 10 -500 Tablet) 1 Each Tablet, 1-2 Tab Oral Hydrocodone Bit/Acetaminophen (Lortab 10 -500 Tablet) 1 Each Tablet, 1-2 Tab Oral 2015-01-09 00:00:00 No Every 6 Hours as n eeded [facility] Oxygen , Nasal Oxygen , Nasal 2015-01-09 00:00:00 No Daily [facility] Polyethylene Glycol 3350 (Miralax) 119 Gm Powder, Or al Polyethylene Glycol 3350 (Miralax) 119 Gm Powder, Oral 2015-01-09 00:00:00 No Daily [facility] Advair , 1 Inh Inhalation Advair , 1 Inh Inhalation 00:00:00 No 1 Twice A Day [facility] Ranitidine Hcl (Acid Hammer Shop Supervisor) 150 Mg Tablet, 150 Mg Or al Ranitidine Hcl (Acid Hammer Shop Supervisor) 150 Mg Tablet, 150 Mg Oral 2014-07-03 00:00:00 No 150 Daily [facility] Albuterol Sulf , 0.83 Mg Inhalation Albuterol Sulf , 0.83 Mg Inh alation 2013-09-28 00:00:00 No .83 Four Times Daily [facility] Albuterol Sulfate (Proair Hfa Inhaler*) 8.5 Gm Inh, Oral Albuterol Sulfate (Proair Hfa Inhaler*) 8.5 Gm Inh, Oral 2013-09-28 00:00:00 No [facility] Aspirin 81 Mg Tablet., 1 Mg Oral Aspirin 81 Mg Tablet., 1 Mg Oral 2013-09-28 00:00:00 No 1 Daily [facility] Miralax , 3350 Oral Miralax , 3350 Oral 2013-09-28 00:00:00 No 3350 [facility] Polyethylene Glycol 3350 (Miralax) 255 Gm Powder, 255 Gm Oral Polyethylene Glycol 3350 (Miralax) 255 Gm Powder, 255 Gm Oral 2013-09-28 00:00:00 No 255 As Needed [facility] Prednisone 20 Mg Tab, 1 Tab Oral Prednisone 20 Mg Tab, 1 Tab Ora l 2013-09-28 00:00:00 No 1 Twice A Day [facility] Ranitidine Hcl (Zantac) 150 Mg Tablet, 150 Mg Oral Ran itidine Hcl (Zantac) 150 Mg Tablet, 150 Mg Oral 2013-09-28 00:00:00 No 150 D aily [facility] Simvastatin 20 Mg Tablet, 20 Mg Oral Simvastatin 20 Mg Tablet, 2 0 Mg Oral 2013-09-28 00:00:00 No 20 Bedtime [facility] Sulfamethoxazole/Trimethoprim (Bactrim Ds Tablet) 1 Ea ch Tablet, 1 Tab Oral Sulfamethoxazole/Trimethoprim (Bactrim Ds Tablet) 1 Each Tablet, 1 Tab Oral 2013-09-28 00:00:00 No 1 Twice A Day [facility] Procedures This patient has no known procedures. Encounters Start Date/Time End Date/Time Encounter Type Admission Type [facility] Care Department Encounter ID Source 2019-01-19 16:35:00 2019-01-20 09:07:00 Discharged Inpatient (obs) [address] [facility] [id number] [facility] 2018-11-10 08:13:00 2018-11-10 10:43:00 Departed Emergency Room [address] [facility] [id number] [facility] 2018-11-04 23:03:00 2018-11-05 00:32:00 Departed Emergency Room [address] [facility] [id number] [facility] 2018-04-06 21:09:00 2018-04-06 23:02:00 Departed Emergency Room [address] [facility] [id number] [facility] 2018-01-30 22:05:00 2018-01-30 23:59:00 Departed Emergency Room [address] [facility] [id number] [facility] 2017-12-15 09:44:00 2017-12-15 09:44:00 Registered Clinic [address] [facility] [id number] [facility] Results Test Description Test Time Test Comments Results Result Comments Source Creatine Kinase MB 2019-01-20 07:35:00 Test Item Creatine Kinase MB (test code = 50674-5) 3.70 0-5.0 [facility]Trop[facility] [id number] 07:35:00* Test Item Value Reference Range Interpretation Comments Troponin I (test code = YFH8357) 0.087 0-0.300 [facility] HospitalCreatine [id number] 07:29:00* Test Item Value Reference Range Interpretation Comments Creatine Kinase (test code = 2157-6) 54 29-[address] [facility] [facility] Twzte5197-21-92 07:12:00* Test Item Value Reference Range Interpretation Comments Sodium Level (test code = 2951-2) 140 136-145 [facility] HospitalPotassium Qgmon8000-56-14 07:12:00* Test Item Value Reference Range Interpretation Comments Potassium Level (test code = 2823-3) 3.9 3.5-5.1 [facility] HospitalChloride Lkrhx0140-92-26 07:12:00* Test Item Value Reference Range Interpretation Comments Chloride Level (test code = 2075-0) 102 98-107 [facility] HospitalCarbon Dioxide [id number] 07:12:00* Test Item Value Reference Range Interpretation Comments Carbon Dioxide Level (test code = 2028-9) 25 [facility] HospitalAnion Ptu3748-65-90 07:12:00* Test Item Value Reference Range Interpretation Comments Anion Gap (test code = 05564-1) 16.9 8-16 H [facility] HospitalBlood Urea Filzzxgg6192-33-44 07:12:00* Test Item Value Reference Range Interpretation Comments Blood Urea Nitrogen (test code = 3094-0) 9 7-26 [facility] HospitalCreatinine2019-10-25 07:12:00* Test Item Value Reference Range Interpretation Comments Creatinine (test code = 2160-0) 0.61 0.57-1.11 [facility] HospitalBUN/Creatinine Zdxbt2461-91-96 07:12:00* Test Item Value Reference Range Interpretation Comments BUN/Creatinine Ratio (test code = 3097-3) 15 09-20 [facility] HospitalEstimat Glomerular Filtration Rate 2019-01-20 07:12:00* Test Item Value Reference Range Interpretation Comments Estimat Glomerular Filtration Rate (test code = 481969506) > 60 >60 Ranges were taken from the National Kidney Disease Education Program and the [facility] literature.Reference ranges:60 or greater: Yzwjie67-20 ( for 3 consecutive months): Chronic kidney disease 15 or less: Kidney failureParkview Regional HospitalGlucose Qojia5508-33-33 07:12:00* Test Item Value Reference Range Interpretation Comments Glucose Level (test code = XGS1616) 122 74-118 H [facility] HospitalCalcium Nykje2428-06-33 07:12:00* Test Item Value Reference Range Interpretation Comments Calcium Level (test code = 74049-4) 9.9 8.4-10.2 [facility] HospitalPhosphorus Qsrge8703-55-56 07:12:00* Test Item Value Reference Range Interpretation Comments Phosphorus Level (test code = BYX5064) 3.4 2.3-4.7 [facility] HospitalMagnesium Kpljj2690-47-20 07:12:00* Test Item Value Reference Range Interpretation Comments Magnesium Level (test code = 12578-1) 2.0 1.3-2.1 [facility] HospitalTotal Jogekxkrq0877-35-83 07:12:00* Test Item Value Reference Range Interpretation Comments Total Bilirubin (test code = 1975-2) 0.3 0.2-1.2 [facility] HospitalAspartate Amino Transf (AST/SGOT) 2019-01-20 07:12:00* Test Item Value Reference Range Interpretation Comments Aspartate Amino Transf (AST/SGOT) (test code = Aspartate Amino Transf (AST/SGOT)) 21 5-34 [facility] HospitalAlanine Aminotransferase (ALT/SGPT) 2019-01-20 07:12:00* Test Item Value Reference Range Interpretation Comments Alanine Aminotransferase (ALT/SGPT) (test code = 1742-6) 17 0-55 [facility] HospitalTotal Nrbmbik7550-13-65 07:12:00* Test Item Value Reference Range Interpretation Comments Total Protein (test code = 2885-2) 7.1 6.5-8.1 [facility] HospitalAlbumin2019-10-25 07:12:00* Test Item Value Reference Range Interpretation Comments Albumin (test code = 1751-7) 3.7 3.5-5.0 [facility] HospitalGlobulin2019-10-25 07:12:00* Test Item Value Reference Range Interpretation Comments Globulin (test code = 19912-0) 3.4 2.3-3.5 [facility] HospitalAlbumin/Globulin Nmmkx0573-07-94 07:12:00 * Test Item Value Reference Range Interpretation Comments Albumin/Globulin Ratio (test code = 1759-0) 1.1 0.8-2.0 [facility] HospitalAlkaline Nacmwaeouyu6937-36-78 07:12:00* Test Item Value Reference Range Interpretation Comments Alkaline Phosphatase (test code = 6768-6) 79 40-150 [facility] HospitalWhite Blood Cqwxq8712-58-95 06:47:00* Test Item Value Reference Range Interpretation Comments White Blood Count (test code = 6690-2) 6.57 4.8-10.8 [facility] HospitalRed Blood Lwoap2562-41-72 06:47:00* Test Item Value Reference Range Interpretation Comments Red Blood Count (test code = 789-8) 4.41 3.6-5.1 [facility] HospitalHemoglobin2019-10-25 06:47:00* Test Item Value Reference Range Interpretation Comments Hemoglobin (test code = 68474-7) 13.1 12.0-16.0 [facility] HospitalHematocrit2019-10-25 06:47:00* Test Item Value Reference Range Interpretation Comments Hematocrit (test code = 4544-3) 41.6 34.2-44.1 [facility] HospitalMean Corpuscular Vedizd6645-61-37 06:47:00* Test Item Value Reference Range Interpretation Comments Mean Corpuscular Volume (test code = 787-2) 94.3 81-99 [facility] HospitalMean Corpuscular Rijexjmjud5297-56-33 06:47:00* Test Item Value Reference Range Interpretation Comments Mean Corpuscular Hemoglobin (test code = 785-6) 29.7 28-32 [facility] HospitalMean Corpuscular Hemoglobin Concent 2019-01-20 06:47:00* Test Item Value Reference Range Interpretation Comments Mean Corpuscular Hemoglobin Concent (test code = 786-4) 31.5 31-35 [facility] HospitalRed Cell Distribution Ppgsq8804-68-94 06:47:00* Test Item Value Reference Range Interpretation Comments Red Cell Distribution Width (test code = 12406-4) 13.5 11.7 -14.4 [facility] HospitalPlatelet Gaxji2529-42-46 06:47:00* Test Item Value Reference Range Interpretation Comments Platelet Count (test code = 777-3) 377 140-360 H [facility] HospitalNeutrophils (%) (Auto)2019-01-20 06:47:00 * Test Item Value Reference Range Interpretation Comments Neutrophils (%) (Auto) (test code = 25998-1) 84.9 38.7-80.0 H [facility] HospitalLymphocytes (%) (Auto)2019-01-20 06:47:00 * Test Item Value Reference Range Interpretation Comments Lymphocytes (%) (Auto) (test code = 736-9) 10.8 18.0-39.1 L [facility] HospitalMonocytes (%) (Auto)2019-01-20 06:47:00* Test Item Value Reference Range Interpretation Comments Monocytes (%) (Auto) (test code = 5905-5) 1.2 4.4-11.3 L [facility] HospitalEosinophils (%) (Auto)2019-01-20 06:47:00 * Test Item Value Reference Range Interpretation Comments Eosinophils (%) (Auto) (test code = 713-8) 2.3 0.0-6.0 [facility] HospitalBasophils (%) (Auto)2019-01-20 06:47:00* Test Item Value Reference Range Interpretation Comments Basophils (%) (Auto) (test code = 706-2) 0.3 0.0-1.0 [facility] HospitalIM GRANULOCYTES %2019-01-20 06:47:00* Test Item Value Reference Range Interpretation Comments IM GRANULOCYTES % (test code = IM GRANULOCYTES %) 0.5 0.0- 1.0 [facility] HospitalNeutrophils # (Auto)2019-01-20 06:47:00* Test Item Value Reference Range Interpretation Comments Neutrophils # (Auto) (test code = 751-8) 5.6 2.1-6.9 [facility] HospitalLymphocytes # (Auto)2019-01-20 06:47:00* Test Item Value Reference Range Interpretation Comments Lymphocytes # (Auto) (test code = 66169-0) 0.7 1.0-3.2 L [facility] HospitalMonocytes # (Auto)2019-01-20 06:47:00* Test Item Value Reference Range Interpretation Comments Monocytes # (Auto) (test code = 742-7) 0.1 0.2-0.8 L [facility] HospitalEosinophils # (Auto)2019-01-20 06:47:00* Test Item Value Reference Range Interpretation Comments Eosinophils # (Auto) (test code = 711-2) 0.2 0.0-0.4 [facility] HospitalBasophils # (Auto)2019-01-20 06:47:00* Test Item Value Reference Range Interpretation Comments Basophils # (Auto) (test code = 704-7) 0.0 0.0-0.1 [facility] HospitalAbsolute Immature Granulocyte (auto 2019-01-20 06:47:00* Test Item Value Reference Range Interpretation Comments Absolute Immature Granulocyte (auto (darrell t code = Absolute Immature Granulocyte (auto) 0.03 0-0.1 [facility] HospitalUrine [id number] 21:24:00* Test Item Value Reference Range Interpretation Comments Urine WBC (test code = 5821-4) NONE 0-5 [facility] HospitalUrine HMP2430-93-03 21:24:00* Test Item Value Reference Range Interpretation Comments Urine RBC (test code = 24693-2) NONE 0-5 [facility] HospitalUrine Vfaufwki9856-30-99 21:24:00* Test Item Value Reference Range Interpretation Comments Urine Bacteria (test code = 49286-9) NONE NONE [facility] HospitalUrine Epithelial Cfghb1293-25-87 21:24:00 * Test Item Value Reference Range Interpretation Comments Urine Epithelial Cells (test code = 63505-9) NONE NONE [facility] HospitalUrine Hfktt3943-20-83 21:18:00* Test Item Value Reference Range Interpretation Comments Urine Color (test code = 5778-6) YELLOW YELLOW [facility] HospitalUrine Okqhekk7897-44-88 21:18:00* Test Item Value Reference Range Interpretation Comments Urine Clarity (test code = 77085-4) CLEAR CLEAR [facility] HospitalUrine Specific Uncwucb7223-56-83 21:18:00 * Test Item Value Reference Range Interpretation Comments Urine Specific [place] (test code = 5811-5) 1.010 1.010-1.02 5 [facility] HospitalUrine [id number] 21:18:00* Test Item Value Reference Range Interpretation Comments Urine pH (test code = 13143-0) 8 5-7 [facility] HospitalU[facility] Leukocyte Pvnlknzh2126-28-38 21:18:00* Test Item Value Reference Range Interpretation Comments Urine Leukocyte Esterase (test code = 26418-5) NEGATIVE NEGATIV E [facility] HospitalUrine Gzuagbi9598-43-14 21:18:00* Test Item Value Reference Range Interpretation Comments Urine Nitrite (test code = 56469-4) NEGATIVE NEGATIVE [facility] HospitalUrine Zeyjvum0802-05-18 21:18:00* Test Item Value Reference Range Interpretation Comments Urine Protein (test code = 67169-2) NEGATIVE NEGATIVE [facility] HospitalUrine Glucose (UA)2019-01-19 21:18:00* Test Item Value Reference Range Interpretation Comments Urine Glucose (UA) (test code = 14407-9) 1+ NEGATIVE H [facility] Gobziuh2820-41-58 21:18:00* Test Item Value Reference Range Interpretation Comments Urine Ketones (test code = 09812-9) NEGATIVE NEGATIVE [facility] HospitalU[facility] Kgonqkupityj4082-90-05 21:18:00* Test Item Value Reference Range Interpretation Comments Urine Urobilinogen (test code = 19444-2) 0.2 0.2-1 [facility] HospitalUrine Mmrathpjk6498-32-18 21:18:00* Test Item Value Reference Range Interpretation Comments Urine Bilirubin (test code = 1977-8) NEGATIVE NEGATIVE [facility] HospitalUrine Htpps7744-79-29 21:18:00* Test Item Value Reference Range Interpretation Comments Urine Blood (test code = 41663-8) NEGATIVE NEGATIVE [facility] HospitalInfluenza Virus Types A,B Antigen 2019-01-19 19:24:00* Test Item Value Reference Range Interpretation Comments Influenza Virus Types A,B Antigen (test code = 01579-2) NEGATIVE NEGATIVE [facility] HospitalThyroid Stimulating Hormone (TSH) 2019-01-19 17:49:00* Test Item Value Reference Range Interpretation Comments Thyroid Stimulating Hormone (TSH) (test code = 34553-3) 0.531 0.350-4.940 [facility] HospitalB-Type Natriuretic Zwcjzzg7407-49-86 17:44:00* Test Item Value Reference Range Interpretation Comments B-Type Natriuretic Peptide (test code = 98585-6) 100.1 0-100 H [facility] HospitalLipase2019-10-24 17:26:00* Test Item Value Reference Range Interpretation Comments Lipase (test code = 3040-3) 12 8-78 [facility] HospitalProthrombin [id number] 17:21:00* Test Item Value Reference Range Interpretation Comments Prothrombin Time (test code = 5902-2) 12.4 11.9-14.5 [facility] HospitalProthromb Time International Ratio 2019-01-19 17:21:00* Test Item Value Reference Range Interpretation Comments Prothromb Time International Ratio (test code = 6301-6) 0.88 Oral Anticoagulant Therapy INR Values:1. Low Intensity Therapy 1.5 - 2.02 . Moderate Intensity Therapy 2.0 - 3.03. High Intensity Therapy(1) 2.5 - 3. 54. High Intensity Therapy(2) 3.0 - 4.05. Panic Value INR > 5.0 [facility] HospitalActivated Partial Thromboplast Time 2019-01-19 17:21:00* Test Item Value Reference Range Interpretation Comments Activated Partial Thromboplast Time (test code = 02259-1) 31.6 23.8-35.5 [facility] HospitalCHEST SINGLE (PORTABLE)2019-01-19 16:46:00 [place] [address] Patient Name: EVAN MICHAEL MR #: [id number] : 1945 Age/Sex: 73/F Req #: [id number] Adm Physician: JOSEPH MCBRIDE MD Ordered by: CLAY AVELAR MD, MD Report #: [id number] [facility]: [facility] Room/Bed: [place] [address] Procedure: [id number] D X/CHEST SINGLE (PORTABLE) Exam Date: 01/19/19 Exam T kenneth: 1630 REPORT STATUS: Signed EXAMINATION: CHEST SINGLE (PORTABLE) INDICATION: Shortness of narendra ath ERMD ORDER [id number] 1630 Y COMPARISON: 11/10/2018 FINDINGS: TUBES and LINES: None. LUNGS: Lungs are well inflated. C hronic appearing changes in the lungs. There is no evidence of pneumonia or pulmonary edema. PLEURA: No pleural effusion or pneumothorax. HEART A ND MEDIASTINUM: The cardiomediastinal silhouette is unremarkable. BONE S AND SOFT TISSUES: No acute osseous lesion. Soft tissues are unremarkable. Postsurgical change at T8 vertebral body UPPER ABDOMEN: No free air under t he diaphragm. IMPRESSION: No acute thoracic abnormality. Sig yonatan by: Dr. Heike Nation M.D. on 01/19/2019 4:47 PM Dictated By: HEIKE NATION MD, MD 46 Tra nscribed By: LUCINDA on 01/19/191646 COPY TO: CLAY AVELAR Blood Mhpdeaj1379-89-88 08:42:00* Test Item Value Reference Range Interpretation Comments Blood Culture (test code = 22961302) NO GROWTH AFTER 5 DAYS, FINAL REPORT [facility] HospitalUrine Lsjet9593-74-21 10:29:00* Test Item Value Reference Range Interpretation Comments Urine Color (test code = 5778-6) YELLOW YELLOW [facility] HospitalUrine Zjsnutz8023-71-32 10:29:00* Test Item Value Reference Range Interpretation Comments Urine Clarity (test code = 06538-5) CLEAR CLEAR [facility] HospitalUrine Specific Vdjyqkq0851-58-67 10:29:00 * Test Item Value Reference Range Interpretation Comments Urine Specific [place] (test code = 5811-5) <=1.005 1.010-1.02 5 [facility] HospitalU[facility] [id number] 10:29:00* Test Item Value Reference Range Interpretation Comments Urine pH (test code = 85159-2) 6.5 5-7 [facility] HospitalU[facility] Leukocyte Yoejmulo3236-81-42 10:29:00* Test Item Value Reference Range Interpretation Comments Urine Leukocyte Esterase (test code = 75138-5) NEGATIVE NEGATIV E [facility] HospitalUrine Fjhefoa4007-26-05 10:29:00* Test Item Value Reference Range Interpretation Comments Urine Nitrite (test code = 50311-7) NEGATIVE NEGATIVE [facility] HospitalU[facility] Bqvqknp8078-45-94 10:29:00* Test Item Value Reference Range Interpretation Comments Urine Protein (test code = 25031-0) NEGATIVE NEGATIVE [facility] Glucose (UA)2018-11-10 10:29:00* Test Item Value Reference Range Interpretation Comments Urine Glucose (UA) (test code = 38852-1) NEGATIVE NEGATIVE [facility] Wqnrfam9287-59-84 10:29:00* Test Item Value Reference Range Interpretation Comments Urine Ketones (test code = 09004-6) NEGATIVE NEGATIVE [facility] Ayakebuydwox3180-59-23 10:29:00* Test Item Value Reference Range Interpretation Comments Urine Urobilinogen (test code = 72636-2) 0.2 0.2-1 [facility] Pmorigjfq8224-11-09 10:29:00* Test Item Value Reference Range Interpretation Comments Urine Bilirubin (test code = 1977-8) NEGATIVE NEGATIVE [facility] Sduad1974-88-43 10:29:00* Test Item Value Reference Range Interpretation Comments Urine Blood (test code = 54149-9) NEGATIVE NEGATIVE [facility] HospitalCHEST SINGLE (PORTABLE)2018-11-10 09:28:00 [facility] [address] [place] [address] Patient Name: EVAN MICHAEL MR #: [id number] : 1945 Age/Sex: 73/F Req #: [id number] Adm Physician: Ordered by: RAVEN DAVIS MD Report #: [id number] Location: ER Room/Bed: Procedure: [id number] DX/ CHEST SINGLE (PORTABLE) Exam Date: 11/10/18 Exam Lee e: 0845 REPORT STATUS: Signed Ch est, 1 view, 11/10/2018. History: Shortness of breath. Comparis on: 11/04/2018. Findings: The cardiomediastinal silhouette and pulmonary vasc ulature are within normal limits for a portable exam. There is no focal consol idation or pleural effusion. Mild interstitial prominence is unchanged. There are no acute osseous or soft tissue abnormalities. Impression: No acu te cardiopulmonary abnormality. Signed by: Gerald Laws on 11/10/2018 9:29 AM Dictated By: GERALD LAWS MD 8 Transcribed By: LUCINDA on 11/10/18928 COPY TO: RAVEN DAVIS MD Sodium Hdono5021-47-05 09:25:00* Test Item Value Reference Range Interpretation Comments Sodium Level (test code = 2951-2) 137 136-145 [facility]Potassium Ljbuu4211-02-48 09:25:00* Test Item Value Reference Range Interpretation Comments Potassium Level (test code = 2823-3) 3.6 3.5-5.1 [facility] HospitalChloride Gfcuk1336-36-66 09:25:00* Test Item Value Reference Range Interpretation Comments Chloride Level (test code = 2075-0) 96 98-107 L [facility] HospitalCarbon Dioxide Dqdtk4658-42-52 09:25:00* Test Item Value Reference Range Interpretation Comments Carbon Dioxide Level (test code = 2028-9) 34 22-29 H [facility] HospitalAnion Czh3153-69-91 09:25:00* Test Item Value Reference Range Interpretation Comments Anion Gap (test code = 35263-4) 10.6 8-16 [facility] HospitalBlood Urea Fllxivch2158-57-25 09:25:00* Test Item Value Reference Range Interpretation Comments Blood Urea Nitrogen (test code = 3094-0) 12 7-26 [facility] HospitalCreatinine2019-08-15 09:25:00* Test Item Value Reference Range Interpretation Comments Creatinine (test code = 2160-0) 0.68 0.57-1.11 [facility] HospitalBUN/Creatinine Klgak8682-47-43 09:25:00* Test Item Value Reference Range Interpretation Comments BUN/Creatinine Ratio (test code = 3097-3) 18 6-25 [facility] HospitalEstimat Glomerular Filtration Rate 2018-11-10 09:25:00* Test Item Value Reference Range Interpretation Comments Estimat Glomerular Filtration Rate (test code = 673682473) > 60 >60 Ranges were taken from the National Kidney Disease Education Program and the [facility] literature.Reference ranges:60 or greater: Nayzei90-85 ( for 3 consecutive months): Chronic kidney disease 15 or less: Kidney failureParkview Regional HospitalGlucose Gowmp9449-85-88 09:25:00* Test Item Value Reference Range Interpretation Comments Glucose Level (test code = FND0171) 99 74-118 [facility] HospitalCalcium Ftzrr0702-62-71 09:25:00* Test Item Value Reference Range Interpretation Comments Calcium Level (test code = 98183-0) 10.3 8.4-10.2 H [facility] HospitalTotal Fnheuymoo5179-63-94 09:25:00* Test Item Value Reference Range Interpretation Comments Total Bilirubin (test code = 1975-2) 0.6 0.2-1.2 [facility] HospitalAspartate Amino Transf (AST/SGOT) 2018-11-10 09:25:00* Test Item Value Reference Range Interpretation Comments Aspartate Amino Transf (AST/SGOT) (test code = Aspartate Amino Transf (AST/SGOT)) 15 5-34 [facility] HospitalAlanine Aminotransferase (ALT/SGPT) 2018-11-10 09:25:00* Test Item Value Reference Range Interpretation Comments Alanine Aminotransferase (ALT/SGPT) (test code = 1742-6) 17 0-55 [facility] HospitalTotal Mfbcbvm6803-80-30 09:25:00* Test Item Value Reference Range Interpretation Comments Total Protein (test code = 2885-2) 6.8 6.5-8.1 [facility] HospitalAlbumin2019-08-15 09:25:00* Test Item Value Reference Range Interpretation Comments Albumin (test code = 1751-7) 3.7 3.5-5.0 [facility] HospitalGlobulin2019-08-15 09:25:00* Test Item Value Reference Range Interpretation Comments Globulin (test code = 56551-8) 3.1 2.3-3.5 [facility] HospitalAlbumin/Globulin Efxnj5896-98-59 09:25:00 * Test Item Value Reference Range Interpretation Comments Albumin/Globulin Ratio (test code = 1759-0) 1.2 0.8-2.0 [facility] HospitalAlkaline Czagiakijfg1678-56-87 09:25:00* Test Item Value Reference Range Interpretation Comments Alkaline Phosphatase (test code = 6768-6) 95 40-150 [facility] HospitalCreatine Piwvre3120-65-16 09:25:00* Test Item Value Reference Range Interpretation Comments Creatine Kinase (test code = 2157-6) 24 29-168 L [facility] HospitalCreatine Kinase MS7456-50-46 09:25:00* Test Item Value Reference Range Interpretation Comments Creatine Kinase MB (test code = 58702-9) 2.10 0-5.0 [facility] HospitalTroponin P6106-87-89 09:25:00* Test Item Value Reference Range Interpretation Comments Troponin I (test code = CKH5732) < 0.001 0-0.300 [facility] HospitalProthrombin Ezud6250-77-50 09:15:00* Test Item Value Reference Range Interpretation Comments Prothrombin Time (test code = 5902-2) 12.7 11.9-14.5 [facility] HospitalProthromb Time International Ratio 2018-11-10 09:15:00* Test Item Value Reference Range Interpretation Comments Prothromb Time International Ratio (test code = 6301-6) 0.91 Oral Anticoagulant Therapy INR Values:1. Low Intensity Therapy 1.5 - 2.02 . Moderate Intensity Therapy 2.0 - 3.03. High Intensity Therapy(1) 2.5 - 3. 54. High Intensity Therapy(2) 3.0 - 4.05. Panic Value INR > 5.0 [facility] HospitalActivated Partial Thromboplast Time 2018-11-10 09:15:00* Test Item Value Reference Range Interpretation Comments Activated Partial Thromboplast Time (test code = 83994-2) 32.3 23.8-35.5 [facility] HospitalLactic Acid Xcqbe1636-92-16 09:15:00* Test Item Value Reference Range Interpretation Comments Lactic Acid Level (test code = Lactic Acid Level) 10.8 4.5- 19.8 [facility] HospitalLactic Acid Vuscu0476-69-90 09:15:00* Test Item Value Reference Range Interpretation Comments Lactic Acid Level (test code = Lactic Acid Level) 10.8 4.5- 19.8 [facility] HospitalWhite Blood Dggig3077-06-20 09:14:00* Test Item Value Reference Range Interpretation Comments White Blood Count (test code = 6690-2) 9.96 4.8-10.8 [facility] HospitalRed Blood Frqpk4051-31-88 09:14:00* Test Item Value Reference Range Interpretation Comments Red Blood Count (test code = 789-8) 4.45 3.6-5.1 [facility] HospitalHemoglobin2019-08-15 09:14:00* Test Item Value Reference Range Interpretation Comments Hemoglobin (test code = 14969-9) 13.0 12.0-16.0 [facility] HospitalHematocrit2019-08-15 09:14:00* Test Item Value Reference Range Interpretation Comments Hematocrit (test code = 4544-3) 41.0 34.2-44.1 [facility] HospitalMean Corpuscular Gukmbx9607-49-44 09:14:00* Test Item Value Reference Range Interpretation Comments Mean Corpuscular Volume (test code = 787-2) 92.1 81-99 [facility] HospitalMean Corpuscular Lsbiuhqjzi8934-35-28 09:14:00* Test Item Value Reference Range Interpretation Comments Mean Corpuscular Hemoglobin (test code = 785-6) 29.2 28-32 [facility] HospitalMean Corpuscular Hemoglobin Concent 2018-11-10 09:14:00* Test Item Value Reference Range Interpretation Comments Mean Corpuscular Hemoglobin Concent (test code = 786-4) 31.7 31-35 [facility] HospitalRed Cell Distribution Uhukc6059-24-05 09:14:00* Test Item Value Reference Range Interpretation Comments Red Cell Distribution Width (test code = 99560-6) 13.7 11.7 -14.4 [facility] HospitalPlatelet Jwupc7207-48-07 09:14:00* Test Item Value Reference Range Interpretation Comments Platelet Count (test code = 777-3) 323 140-360 [facility] HospitalNeutrophils (%) (Auto)2018-11-10 09:14:00 * Test Item Value Reference Range Interpretation Comments Neutrophils (%) (Auto) (test code = 23455-3) 74.8 38.7-80.0 [facility] HospitalLymphocytes (%) (Auto)2018-11-10 09:14:00 * Test Item Value Reference Range Interpretation Comments Lymphocytes (%) (Auto) (test code = 736-9) 13.8 18.0-39.1 L [facility] HospitalMonocytes (%) (Auto)2018-11-10 09:14:00* Test Item Value Reference Range Interpretation Comments Monocytes (%) (Auto) (test code = 5905-5) 10.6 4.4-11.3 [facility] HospitalEosinophils (%) (Auto)2018-11-10 09:14:00 * Test Item Value Reference Range Interpretation Comments Eosinophils (%) (Auto) (test code = 713-8) 0.4 0.0-6.0 [facility] HospitalBasophils (%) (Auto)2018-11-10 09:14:00* Test Item Value Reference Range Interpretation Comments Basophils (%) (Auto) (test code = 706-2) 0.2 0.0-1.0 [facility] HospitalIM GRANULOCYTES %2018-11-10 09:14:00* Test Item Value Reference Range Interpretation Comments IM GRANULOCYTES % (test code = IM GRANULOCYTES %) 0.2 0.0- 1.0 [facility] HospitalNeutrophils # (Auto)2018-11-10 09:14:00* Test Item Value Reference Range Interpretation Comments Neutrophils # (Auto) (test code = 751-8) 7.5 2.1-6.9 H [facility] HospitalLymphocytes # (Auto)2018-11-10 09:14:00* Test Item Value Reference Range Interpretation Comments Lymphocytes # (Auto) (test code = 16405-9) 1.4 1.0-3.2 [facility] HospitalMonocytes # (Auto)2018-11-10 09:14:00* Test Item Value Reference Range Interpretation Comments Monocytes # (Auto) (test code = 742-7) 1.1 0.2-0.8 H [facility] HospitalEosinophils # (Auto)2018-11-10 09:14:00* Test Item Value Reference Range Interpretation Comments Eosinophils # (Auto) (test code = 711-2) 0.0 0.0-0.4 [facility] HospitalBasophils # (Auto)2018-11-10 09:14:00* Test Item Value Reference Range Interpretation Comments Basophils # (Auto) (test code = 704-7) 0.0 0.0-0.1 [facility] HospitalAbsolute Immature Granulocyte (auto 2018-11-10 09:14:00* Test Item Value Reference Range Interpretation Comments Absolute Immature Granulocyte (auto (darrell t code = Absolute Immature Granulocyte (auto) 0.02 0-0.1 [facility] SINGLE (PORTABLE)2018-11-05 00:02:00 [facility] [address] [address] Patient Name: EVAN MICHAEL MR #: [id number] : 1945 Age/Sex: 73/F Req #: [id number] Adm Physician: Ordered by: PALMER CARRENO MD Report #: [id number] Location: ER Room/Bed: Procedure: [id number] DX/CH EST SINGLE (PORTABLE) Exam Date: 11/04/18 Exam Time: 2330 REPORT STATUS: Signed EXAM INATION: CHEST SINGLE (PORTABLE) INDICATION: SOB, HX COPD COMPARI SON: 04/06/2018. FINDINGS: TUBES and LINES: None. LUNGS: The bobby ngs are hyperinflated. Biapical pleural-parenchymal scarring. Diffuse coarsene d pulmonary interstitium particularly in the lower lobes. There is no eviden ce of pneumonia or pulmonary edema. PLEURA: No pleural effusion or pneumot horax. HEART AND MEDIASTINUM: The cardiomediastinal silhouette is unremark able. There are atherosclerotic calcifications within the aorta. BONES AN D SOFT TISSUES: No acute osseous lesion. Lower cervical fusion hardware. UPPER ABDOMEN: No free air under the diaphragm. IMPRESSION: COPD a nd chronic interstitial changes. No focal consolidation. Signed by: Abebe Ruiz M.D. on 11/05/2018 12:04 AM Dictated By: ADAMA LUNDBERG MD, MD 0004 T ranscribed By: LUCINDA on 11/05/18 0004 COPY TO: PALMER CARRENO MD White Blood Ekyri6317-94-25 23:32:00* Test Item Value Reference Range Interpretation Comments White Blood Count (test code = 6690-2) 7.31 4.8-10.8 [facility] HospitalRed Blood Wgfif4365-73-67 23:32:00* Test Item Value Reference Range Interpretation Comments Red Blood Count (test code = 789-8) 4.37 3.6-5.1 [facility] HospitalHemoglobin2019-08-09 23:32:00* Test Item Value Reference Range Interpretation Comments Hemoglobin (test code = 41839-4) 12.9 12.0-16.0 [facility] HospitalHematocrit2019-08-09 23:32:00* Test Item Value Reference Range Interpretation Comments Hematocrit (test code = 4544-3) 40.4 34.2-44.1 [facility] HospitalMean Corpuscular Aaxyfa9319-39-18 23:32:00* Test Item Value Reference Range Interpretation Comments Mean Corpuscular Volume (test code = 787-2) 92.4 81-99 [facility] HospitalMean Corpuscular Xlicmfhlic8395-35-72 23:32:00* Test Item Value Reference Range Interpretation Comments Mean Corpuscular Hemoglobin (test code = 785-6) 29.5 28-32 [facility] HospitalMean Corpuscular Hemoglobin Concent 2018-11-04 23:32:00* Test Item Value Reference Range Interpretation Comments Mean Corpuscular Hemoglobin Concent (test code = 786-4) 31.9 31-35 [facility] HospitalRed Cell Distribution Cekoa4773-77-75 23:32:00* Test Item Value Reference Range Interpretation Comments Red Cell Distribution Width (test code = 52957-9) 14.0 11.7 -14.4 [facility] HospitalPlatelet Mgxhg9466-09-43 23:32:00* Test Item Value Reference Range Interpretation Comments Platelet Count (test code = 777-3) 254 140-360 [facility] HospitalNeutrophils (%) (Auto)2018-11-04 23:32:00 * Test Item Value Reference Range Interpretation Comments Neutrophils (%) (Auto) (test code = 44898-7) 57.2 38.7-80.0 [facility] HospitalLymphocytes (%) (Auto)2018-11-04 23:32:00 * Test Item Value Reference Range Interpretation Comments Lymphocytes (%) (Auto) (test code = 736-9) 24.9 18.0-39.1 [facility] HospitalMonocytes (%) (Auto)2018-11-04 23:32:00* Test Item Value Reference Range Interpretation Comments Monocytes (%) (Auto) (test code = 5905-5) 15.0 4.4-11.3 H [facility] HospitalEosinophils (%) (Auto)2018-11-04 23:32:00 * Test Item Value Reference Range Interpretation Comments Eosinophils (%) (Auto) (test code = 713-8) 1.8 0.0-6.0 [facility] HospitalBasophils (%) (Auto)2018-11-04 23:32:00* Test Item Value Reference Range Interpretation Comments Basophils (%) (Auto) (test code = 706-2) 0.7 0.0-1.0 [facility] HospitalIM GRANULOCYTES %2018-11-04 23:32:00* Test Item Value Reference Range Interpretation Comments IM GRANULOCYTES % (test code = IM GRANULOCYTES %) 0.4 0.0- 1.0 [facility] HospitalNeutrophils # (Auto)2018-11-04 23:32:00* Test Item Value Reference Range Interpretation Comments Neutrophils # (Auto) (test code = 751-8) 4.2 2.1-6.9 [facility] HospitalLymphocytes # (Auto)2018-11-04 23:32:00* Test Item Value Reference Range Interpretation Comments Lymphocytes # (Auto) (test code = 36767-7) 1.8 1.0-3.2 [facility] HospitalMonocytes # (Auto)2018-11-04 23:32:00* Test Item Value Reference Range Interpretation Comments Monocytes # (Auto) (test code = 742-7) 1.1 0.2-0.8 H [facility] HospitalEosinophils # (Auto)2018-11-04 23:32:00* Test Item Value Reference Range Interpretation Comments Eosinophils # (Auto) (test code = 711-2) 0.1 0.0-0.4 [facility] HospitalBasophils # (Auto)2018-11-04 23:32:00* Test Item Value Reference Range Interpretation Comments Basophils # (Auto) (test code = 704-7) 0.1 0.0-0.1 [facility] HospitalAbsolute Immature Granulocyte (auto 2018-11-04 23:32:00* Test Item Value Reference Range Interpretation Comments Absolute Immature Granulocyte (auto (darrell t code = Absolute Immature Granulocyte (auto) 0.03 0-0.1 [facility] HospitalCreatine Kinase BD1189-07-97 22:38:00* Test Item Value Reference Range Interpretation Comments Creatine Kinase MB (test code = 83283-3) 2.00 0-5.0 [facility] HospitalTroponin U2325-48-57 22:38:00* Test Item Value Reference Range Interpretation Comments Troponin I (test code = ESW7677) < 0.001 0-0.300 [facility] HospitalCreatine Kinase NL3085-16-14 22:38:00* Test Item Value Reference Range Interpretation Comments Creatine Kinase MB (test code = 49029-3) 2.00 0-5.0 [facility] HospitalTroponin A0606-18-18 22:38:00* Test Item Value Reference Range Interpretation Comments Troponin I (test code = SSI5712) < 0.001 0-0.300 [facility] HospitalB-Type Natriuretic Reymqus3535-19-90 22:29:00* Test Item Value Reference Range Interpretation Comments B-Type Natriuretic Peptide (test code = 70221-9) 46.7 0-100 [facility] HospitalB-Type Natriuretic Iongvyu8797-92-22 22:29:00* Test Item Value Reference Range Interpretation Comments B-Type Natriuretic Peptide (test code = 93578-0) 46.7 0-100 [facility] HospitalB-Type Natriuretic Pkmqkui2458-49-09 22:29:00* Test Item Value Reference Range Interpretation Comments B-Type Natriuretic Peptide (test code = 78442-8) 46.7 0-[address] [facility] Omtcb7143-28-89 22:26:00* Test Item Value Reference Range Interpretation Comments Sodium Level (test code = 2951-2) 135 136-145 L [facility] HospitalPotassium Zdwnj3776-90-29 22:26:00* Test Item Value Reference Range Interpretation Comments Potassium Level (test code = 2823-3) 3.8 3.5-5.1 [facility] HospitalChloride Crswb9160-99-02 22:26:00* Test Item Value Reference Range Interpretation Comments Chloride Level (test code = 2075-0) 98 98-107 [facility] HospitalCarbon Dioxide Tylwy4794-53-34 22:26:00* Test Item Value Reference Range Interpretation Comments Carbon Dioxide Level (test code = 2028-9) 27 22-29 [facility] HospitalAnion Scv6530-64-45 22:26:00* Test Item Value Reference Range Interpretation Comments Anion Gap (test code = 98767-1) 13.8 8-16 [facility] HospitalBlood Urea Gxrjqlbx4446-26-17 22:26:00* Test Item Value Reference Range Interpretation Comments Blood Urea Nitrogen (test code = 3094-0) 10 7-26 [facility] HospitalCreatinine2019-01-09 22:26:00* Test Item Value Reference Range Interpretation Comments Creatinine (test code = 2160-0) 0.77 0.57-1.11 [facility] HospitalBUN/Creatinine Aeyzw2627-07-09 22:26:00* Test Item Value Reference Range Interpretation Comments BUN/Creatinine Ratio (test code = 3097-3) 13 6-25 [facility] HospitalEstimat Glomerular Filtration Rate 2018-04-06 22:26:00* Test Item Value Reference Range Interpretation Comments Estimat Glomerular Filtration Rate (test code = 743012082) > 60 >60 Ranges were taken from the National Kidney Disease Education Program and the [facility] Kidney Foundation literature.Reference ranges:60 or greater: Nywoqh11-26 ( for 3 consecutive months): Chronic kidney disease 15 or less: Kidney failureParkview Regional HospitalGlucose Kvmdz5065-37-45 22:26:00* Test Item Value Reference Range Interpretation Comments Glucose Level (test code = CMB2369) 118 74-118 [facility] HospitalCalcium Ffgcw3109-16-12 22:26:00* Test Item Value Reference Range Interpretation Comments Calcium Level (test code = 14514-0) 10.5 8.4-10.2 H [facility] HospitalTotal Fngziqusn4089-17-27 22:26:00* Test Item Value Reference Range Interpretation Comments Total Bilirubin (test code = 1975-2) 0.3 0.2-1.2 [facility] HospitalAspartate Amino Transf (AST/SGOT) 2018-04-06 22:26:00* Test Item Value Reference Range Interpretation Comments Aspartate Amino Transf (AST/SGOT) (test code = Aspartate Amino Transf (AST/SGOT)) 20 5-34 [facility] HospitalAlanine Aminotransferase (ALT/SGPT) 2018-04-06 22:26:00* Test Item Value Reference Range Interpretation Comments Alanine Aminotransferase (ALT/SGPT) (test code = 1742-6) 17 0-55 [facility] HospitalTotal Wjbzfgl6369-36-29 22:26:00* Test Item Value Reference Range Interpretation Comments Total Protein (test code = 2885-2) 6.8 6.5-8.1 [facility] HospitalAlbumin2019-01-09 22:26:00* Test Item Value Reference Range Interpretation Comments Albumin (test code = 1751-7) 3.8 3.5-5.0 [facility] HospitalGlobulin2019-01-09 22:26:00* Test Item Value Reference Range Interpretation Comments Globulin (test code = 87946-0) 3.0 2.3-3.5 [facility] HospitalAlbumin/Globulin Vxoip7161-98-06 22:26:00 * Test Item Value Reference Range Interpretation Comments Albumin/Globulin Ratio (test code = 1759-0) 1.3 0.8-2.0 [facility] HospitalAlkaline Nenxzesdzgs6244-62-89 22:26:00* Test Item Value Reference Range Interpretation Comments Alkaline Phosphatase (test code = 6768-6) 96 40-150 [facility] HospitalCreatine Xhybqk8192-85-51 22:26:00* Test Item Value Reference Range Interpretation Comments Creatine Kinase (test code = 2157-6) 38 29-[address] [facility] [facility] [facility] Hospitalodium Roukq3787-26-48 22:26:00* Test Item Value Reference Range Interpretation Comments Sodium Level (test code = 2951-2) 135 136-145 L [facility] HospitalPotassium Pkuzp5558-08-30 22:26:00* Test Item Value Reference Range Interpretation Comments Potassium Level (test code = 2823-3) 3.8 3.5-5.1 [facility] HospitalChloride Wddyz5582-41-37 22:26:00* Test Item Value Reference Range Interpretation Comments Chloride Level (test code = 2075-0) 98 98-107 [facility] HospitalCarbon Dioxide Quafy2339-01-83 22:26:00* Test Item Value Reference Range Interpretation Comments Carbon Dioxide Level (test code = 2028-9) 27 22-29 [facility] HospitalAnion Qzx4906-03-14 22:26:00* Test Item Value Reference Range Interpretation Comments Anion Gap (test code = 05875-4) 13.8 8-16 [facility] HospitalBlood Urea Jjraslfi9957-00-69 22:26:00* Test Item Value Reference Range Interpretation Comments Blood Urea Nitrogen (test code = 3094-0) 10 7-26 [facility] HospitalCreatinine2019-01-09 22:26:00* Test Item Value Reference Range Interpretation Comments Creatinine (test code = 2160-0) 0.77 0.57-1.11 [facility] HospitalBUN/Creatinine Dhunx5615-16-88 22:26:00* Test Item Value Reference Range Interpretation Comments BUN/Creatinine Ratio (test code = 3097-3) 13 6-25 [facility] HospitalEstimat Glomerular Filtration Rate 2018-04-06 22:26:00* Test Item Value Reference Range Interpretation Comments Estimat Glomerular Filtration Rate (test code = 765768006) > 60 >60 Ranges were taken from the National Kidney Disease Education Program and the [facility] literature.Reference ranges:60 or greater: Tvbaqn26-55 ( for 3 consecutive months): Chronic kidney disease 15 or less: Kidney failureParkview Regional HospitalGlucose Fgzwa8684-59-37 22:26:00* Test Item Value Reference Range Interpretation Comments Glucose Level (test code = VZS5603) 118 74-118 [facility] HospitalCalcium Lmvsi8124-26-96 22:26:00* Test Item Value Reference Range Interpretation Comments Calcium Level (test code = 42402-6) 10.5 8.4-10.2 H [facility] HospitalTotal Fqukhflav7547-85-07 22:26:00* Test Item Value Reference Range Interpretation Comments Total Bilirubin (test code = 1975-2) 0.3 0.2-1.2 [facility] HospitalAspartate Amino Transf (AST/SGOT) 2018-04-06 22:26:00* Test Item Value Reference Range Interpretation Comments Aspartate Amino Transf (AST/SGOT) (test code = Aspartate Amino Transf (AST/SGOT)) 20 5-34 [facility] HospitalAlanine Aminotransferase (ALT/SGPT) 2018-04-06 22:26:00* Test Item Value Reference Range Interpretation Comments Alanine Aminotransferase (ALT/SGPT) (test code = 1742-6) 17 0-55 [facility] HospitalTotal Ahrtplt7087-99-19 22:26:00* Test Item Value Reference Range Interpretation Comments Total Protein (test code = 2885-2) 6.8 6.5-8.1 [facility] HospitalAlbumin2019-01-09 22:26:00* Test Item Value Reference Range Interpretation Comments Albumin (test code = 1751-7) 3.8 3.5-5.0 [facility] 22:26:00* Test Item Value Reference Range Interpretation Comments Globulin (test code = 55864-5) 3.0 2.3-3.5 [facility]Album[facility]/Globulin Cqxqh4037-06-46 22:26:00 * Test Item Value Reference Range Interpretation Comments Albumin/Globulin Ratio (test code = 1759-0) 1.3 0.8-2.0 [facility] HospitalAlkaline Axxicsytkvw0039-75-94 22:26:00* Test Item Value Reference Range Interpretation Comments Alkaline Phosphatase (test code = 6768-6) 96 40-150 [facility] HospitalCreatine Lakviv0051-33-59 22:26:00* Test Item Value Reference Range Interpretation Comments Creatine Kinase (test code = 2157-6) 38 29-168 [facility]White Blood Ikfeu3717-32-71 22:04:00* Test Item Value Reference Range Interpretation Comments White Blood Count (test code = 6690-2) 15.59 4.8-10.8 H [facility]Red Blood Vitbi4098-62-25 22:04:00* Test Item Value Reference Range Interpretation Comments Red Blood Count (test code = 789-8) 4.66 3.6-5.1 [facility]Hemoglobin2019-[facility] 22:04:00* Test Item Value Reference Range Interpretation Comments Hemoglobin (test code = 28314-7) 13.8 12.0-16.0 [facility] HospitalHematocrit2019-01-09 22:04:00* Test Item Value Reference Range Interpretation Comments Hematocrit (test code = 4544-3) 43.1 34.2-44.1 [facility] HospitalMean Corpuscular Kqfbfj1252-47-66 22:04:00* Test Item Value Reference Range Interpretation Comments Mean Corpuscular Volume (test code = 787-2) 92.5 81-99 [facility]Mean Corpuscular Idvyfafmak3306-91-50 22:04:00* Test Item Value Reference Range Interpretation Comments Mean Corpuscular Hemoglobin (test code = 785-6) 29.6 28-32 [facility] HospitalMean Corpuscular Hemoglobin Concent 2018-04-06 22:04:00* Test Item Value Reference Range Interpretation Comments Mean Corpuscular Hemoglobin Concent (test code = 786-4) 32.0 31-35 [facility]Red Cell Distribution Qzqgt3190-16-22 22:04:00* Test Item Value Reference Range Interpretation Comments Red Cell Distribution Width (test code = 04145-1) 12.8 11.7 -14.4 [facility] HospitalPlatelet Ylwfe0545-22-93 22:04:00* Test Item Value Reference Range Interpretation Comments Platelet Count (test code = 777-3) 318 140-360 [facility] HospitalNeutrophils (%) (Auto)2018-04-06 22:04:00 * Test Item Value Reference Range Interpretation Comments Neutrophils (%) (Auto) (test code = 25540-8) 81.6 38.7-80.0 H [facility] HospitalLymphocytes (%) (Auto)2018-04-06 22:04:00 * Test Item Value Reference Range Interpretation Comments Lymphocytes (%) (Auto) (test code = 736-9) 10.0 18.0-39.1 L [facility] HospitalMonocytes (%) (Auto)2018-04-06 22:04:00* Test Item Value Reference Range Interpretation Comments Monocytes (%) (Auto) (test code = 5905-5) 7.1 4.4-11.3 [facility]Eosinophils (%) (Auto)2018-04-06 22:04:00 * Test Item Value Reference Range Interpretation Comments Eosinophils (%) (Auto) (test code = 713-8) 0.6 0.0-6.0 [facility]Basophils (%) (Auto)2018-04-06 22:04:00* Test Item Value Reference Range Interpretation Comments Basophils (%) (Auto) (test code = 706-2) 0.4 0.0-1.0 [facility] HospitalIM GRANULOCYTES %2018-04-06 22:04:00* Test Item Value Reference Range Interpretation Comments IM GRANULOCYTES % (test code = IM GRANULOCYTES %) 0.3 0.0- 1.0 [facility] HospitalNeutrophils # (Auto)2018-04-06 22:04:00* Test Item Value Reference Range Interpretation Comments Neutrophils # (Auto) (test code = 751-8) 12.7 2.1-6.9 H [facility] HospitalLymphocytes # (Auto)2018-04-06 22:04:00* Test Item Value Reference Range Interpretation Comments Lymphocytes # (Auto) (test code = 18177-6) 1.6 1.0-3.2 [facility]Monocytes # (Auto)2018-04-06 22:04:00* Test Item Value Reference Range Interpretation Comments Monocytes # (Auto) (test code = 742-7) 1.1 0.2-0.8 H [facility] HospitalEosinophils # (Auto)2018-04-06 22:04:00* Test Item Value Reference Range Interpretation Comments Eosinophils # (Auto) (test code = 711-2) 0.1 0.0-0.4 [facility]Basophils # (Auto)2018-04-06 22:04:00* Test Item Value Reference Range Interpretation Comments Basophils # (Auto) (test code = 704-7) 0.1 0.0-0.1 [facility] HospitalAbsolute Immature Granulocyte (auto 2018-04-06 22:04:00* Test Item Value Reference Range Interpretation Comments Absolute Immature Granulocyte (auto (darrell t code = Absolute Immature Granulocyte (auto) 0.04 0-0.1 [facility] HospitalCHEST SINGLE (PORTABLE)2018-04-06 21:56:00 [place] [address] Patient Name: EVAN MICHAEL MR #: [id number] : 1945 Age/Sex: 73/F Req #: [id number] Adm Physician: Ordered by: MARANDA SEQUEIRA MD Report #: [id number] Location: ER Room/Bed: Procedure: [id number] DX/CHEST SINGLE (PORTABLE) Exam Date: 04/06/18 Exam Time: 2139 REPORT STATUS: Signed CHEST SINGLE (PORTABLE), 04/06/2018 9:15 PM Technique: CHEST SINGLE (PORTABL E) Comparison: 02/02/2017 Clinical history: Shortness of breath Findings : See Impression. Partially imaged ACDF. Prior vertebroplasty. Impression : 1. Stable cardiomediastinal silhouette. 2. Emphysema/hyperinflation. Minim al right basilar and lingular opacity, stable. Increased density over the uppe r lung favor summation shadow related to technique. 3. No effusion or pneumo thorax. Signed by: Dr Juli López MD on 04/06/2018 9:58 PM Dictated By: JULI LÓPEZ MD 57 Transcribed By: LUCINDA on 04/06/182157 COPY TO: LOU SEQUEIRA MD KNEE LEFT 1-2 MBVRR9498-15-87 23:26:00 [place] [address] Patient Name: EVAN MICHAEL MR #: [id number] : 1945 Age/Sex: 72/F Req #: [id number] Adm Physician: Ordered by: PALMER CARRENO MD Report #: [id number] Location: ER Room/Bed: Procedure: [id number] DX/KN EE LEFT 1-2 VIEWS Exam Date: 01/30/18 Exam Time: 222 7 REPORT STATUS: Signed EXAM: KN EE LEFT 1-2 VIEWS, AP and lateral INDICATION: Fall, left knee pain COMPARISO N: None FINDINGS: BONES: No acute fractures. JOINTS: No malalig nment. Calcification of the articular surface. SOFT TISSUES: Normal IMPRESSION: No left knee fracture. Chondrocalcinosis indicating CPPD. Signed by: Dr. Christiane Carpio M.D. on 01/30/2018 11:27 PM Dictated B y: CHRISTIANE CARPIO MD 26 Transcribed By: LUCINDA on 01/30/182326 COPY TO: PALMER CARRENO MD HIP LEFT 2-3 VW (+/- PELVIS)2018-01-30 23:18:00 [place] [address] Patient Name: EVAN MICHAEL MR #: [id number] : 1945 Age/Sex: 72/F Req #: [id number] [facility] Physician: Ordered by: PALMER CARRENO MD Report #: [id number] Location: ER Room/Bed: Procedure: DX/HI P LEFT 2-3 VW (+/- PELVIS) Exam Date: Exam Time: REPORT STATUS: Signed EXAM: HIP L EFT 2-3 VW (+/- PELVIS) INDICATION: Fall, left hip and left knee pain COMPAR THADDEUS: None FINDINGS: BONES: No acute fractures. JOINTS: No giovany lignment. SOFT TISSUES: Normal IMPRESSION: No acute pelvic or left hip fracture. Signed by: Dr. Christiane Carpio M.D. on 01/30/2018 11:26 PM Dictated By: CHRISTIANE CARPIO MD 25 Transcribed By: LUCINDA on 01/30/182325 COPY TO: PALMER CARRENO MD SHOULDER RIGHT VXPLWDWP2384-31-77 10:29:00 [place] [address] Patient Name: EVAN MICAHEL MR #: [id number] : 1945 Age/Sex: 72/F Req #: [id number] Adm Physician: Ordered by: JOSEPH MCBRIDE MD Report #: [id number] Location: [facility] Room/Bed: Procedure: [id number] DX/SHOULDER RIGHT COMPLETE Exam Date: 12/15/17 Exam Time: 1000 REPORT STATUS: Signed PROCEDURE: X-RAY RIGHT SHOULDER, COMPLETE COMPARISON: Chest radiograph 02/02/17. INDICATIONS: RIGHT SHOULDER PAIN FINDINGS: No acute, displaced fracture or dislocation. The humeral head projects appr opriately adjacent to the glenoid. Moderate degenerative changes of the acrom ioclavicular and glenohumeral joints. Soft tissues unremarkable. Right lung partially visualized, well aerated. Stable midlung calcification relativ e to chest radiograph 02/02/2017. CONCLUSION: No acute osseous abno rmality. Moderate acromioclavicular and glenohumeral degenerative joint di sease. Dictated by: Matias Porter M.D. on 12/15/2017 at 10:29 Electr onically approved by: Matias Porter M.D. on 12/15/2017 at 10:29 Dic tated By: MATIAS PORTER MD 1029 COPY TO: JOSEPH MCBRIDE MD CT CHEST W [place] [address] Patient Name: EVAN MICHAEL MR #: [id number] : 1945 Age/Sex: 71/F Req #: [id number] Adm Physician: Ordered by: AMMON ALMENDAREZ MD Report #: [id number] Location: ER Room/Bed: Procedure: [id number] CT/CT CHEST W Exam Date: 02/02/17 Exam Time: 2214 REPORT STATUS: Signed EXAM: CT Chest WITH contrast 02/02/2017 10:05 PM INDICATION: Pulmonary embolism, niya rtness of breath, elevation the dimer. COMPARISON: Thoracic spine on 7 TECHNIQUE: Chest was scanned utilizing a multidetector helical scanner fro m the lung apex through the level of the adrenal glands without administration of IV contrast. Coronal and sagittal reformations were obtained. Pulmonary em bolism protocol was performed. IV CONTRAST: 100 mL of Isovue-370 RADIATION DOSE: Total DLP: 329.08 mGy*cm Estimated ef fective dose: (DLP x 0.014 x size factor) mSv COMPLICATIONS: None FINDINGS: LINES/ TUBES: None. LUNGS AND AIRWAYS: Mild centrilobul ar emphysema present. Calcified granuloma noted in the right lower lobe. Airw ays are normal. PLEURA: The pleural spaces are clear. HEART AND MEDIAS TINUM: The thyroid gland is normal. No mediastinal, hilar or axillary lymphad enopathy. The heart is normal in size.. There is no pericardial effusion. Th ere are mild atherosclerotic calcifications in the aorta and coronary arteries . The pulmonary artery measures 2.8 cm in diameter UPPER ABDOMEN: Limited n on-contrast views of the upper abdomen show no abnormality within the visualiz ed liver, spleen, pancreas, or kidneys. The adrenal glands are normal. EDUARDO NOLBERTO: Chronic deformity of T8 status post vertebroplasty consistent with subacu te/recent fracture, new when compared with prior MRI on 12/10/2016 SOFT TISS UES: Unremarkable. IMPRESSION: 1. No evidence of pulmonary embolism. 2. Centrilobular emphysema is present. 3. Atherosclerotic disease of the tho racic aorta and branches including coronary arteries 4. T8 vertebroplasty s tatus post compression deformity. Signed by: Dr. Kaz Reyes M.D. on 11:11 PM Dictated By: KAZ BECK MD Electronically Sig yonatan By: KAZ BECK MD on 02/02/172310 Transcribed By: LUCINDA on 10/12 COPY TO: AMMON ALMENDAREZ MD CHEST SINGLE (PORTABLE) [place] [address] Patient Name: EAVN MICHAEL MR #: [id number] : 11/1944 Age/Sex: 71/F Req #: [id number] Adm Physician: Ordered by: BENJIE MCKEON Report #: [id number] Location: ER Room/Be d: Procedure: [id number] DX/CHEST SINGLE (PORTABLE) E xam Date: 02/02/17 Exam Time: 1919 REPORT STATU S: Signed Examination: Single AP view of the [...] acute cardiopulmonary abnormalities. Signed by: Dr. Danielle watt M.D. on 02/02/2017 7:38 PM Dictated By: DANIELLE DASH MD Electr onically Signed By: DANIELLE DASH MD on 02/02/171937 Transcribed By: NEGAR Frank on 02/02/171937 COPY TO: BENJIE MCKEON MRI SPINE THORACIC WO [place] [address] Patient Name: EVAN MICHAEL MR #: [id number] : 1945 Age/Sex: 71/F Req #: [id number] Adm Physician: Ordered by: JOSEPH MCBRIDE MD Report #: [id number] Location: MRI Room/Bed: Procedure: [id number] MRI/MRI SPINE THORACIC WO Exam Date: 12/10/16 Exam Time: 934 REPORT STATUS: S igned EXAMINATION: MRI of the thoracic spine without contrast HISTORY: Compression fracture, pain after moving things about a week ago COMPARISON: N one. TECHNIQUE: Sagittal T1 without contrast, T2, and STIR; axial T2. Coronal T2. Intravenous contrast: none FINDINGS: Curvature: Increased tho racic kyphosis Vertebrae: -Acute mild compression fracture of T8 with dif fuse bone marrow edema indicates that the vertebral body height by approximate ly 20%, no posterior retropulsion and no canal stenoses. -Deep Schmorl node in the inferior endplate of T9 with mild decreased vertebral body height. -M ild chronic compression fracture of the T5 and T6 vertebral bodies without sig nificant retropulsion or canal stenosis. Discs: Mild diffuse disc at the T7-T8 T8-T9 and T9-T10 without significant stenoses. Spinal canal : No mass or abnormal blood vessels. Spinal cord: Normal size and signal int ensity. Foramina: Unremarkable. Paraspinal soft tissues: Parti ally visualized T2 hyperintense foci in the liver and kidneys, perhaps cysts, please see dictation of abdomen CT of 02/11/2015 Proximal ribs: No abnorma l signal intensity. IMPRESSION: 1. Acute mild compression fractu re of the T8 vertebral body without posterior retropulsion or canal stenosis. No cord compression. 2. Mild chronic compression fracture of the T5 and T6 vertebral bodies. 3. Associated increased thoracic kyphosis. The fin dings were discussed with the attending physician's [employer] DATA MODELER Yaritza Jaimes on 017 at 3:00 PM Signed by: Dr. Ankit Hernandez M.D. on 12/11/2016 3:11 PM Dictated By: ANKIT HERNANDEZ MD 1511 COPY TO: JOSEPH MCBRIDE MD
[2019-09-02 05:41] LABS: BASOPHILS % 0.4 % (0.0-1.0); EOSINOPHILS # (AUTO) 0.1 (0.0-0.4); EOSINOPHILS % 1.2 % (0.0-6.0); HEMATOCRIT 39.3 % (34.2-44.1); HEMOGLOBIN 11.9 g/dL (12.0-16.0); LYMPHOCYTES # (AUTO) 2.5 (1.0-3.2); LYMPHOCYTES % 25.7 % (18.0-39.1); MEAN CORPUSCULAR HEMOGLOBIN 29.4 pg (28-32); MEAN CORPUSCULAR HGB CONC 30.3 g/dL (31-35); MONOCYTES # (AUTO) 0.8 (0.2-0.8); MONOCYTES % 7.9 % (4.4-11.3); NEUTROPHILS # (AUTO) 6.3 (2.1-6.9); NEUTROPHILS % 64.3 % (38.7-80.0); PLATELET COUNT 301 x10e3/uL (140-360); RED BLOOD COUNT 4.05 x10e6/uL (3.6-5.1); RED CELL DISTRIBUTION WIDTH 13.6 % (11.7-14.4)
--- NOTE | 2019-09-02 05:51 | Emergency Department Note ---
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 PT REPORTS SOB HAS SLIGHTLY DECREASED; .PT REPORTS THE ABD PAIN HAS BEEN GOING ON FOR 4 DAYS. 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: 18G IV CATH RT AC; EKG; 125MG SOLUMEDROL; X2 ZOPEN Onset (how long ago): day(s) (ABD PAIN FOR 4 DAYS, SOB FOR 2 HOURS) Location: RUQ Quality: PAIN Radiation: non-radiation Severity: moderate Onset quality: gradual Duration (how long): day(s) (4) Timing of current episode: constant Progression: unchanged Chronicity: recurrent Context: recent illness Relieving factors: other (SOB IMPROVED WITH XOPENEX NEBS GIVEN BY EMS) Exacerbating factors: none Associated symptoms: denies other symptoms Treatments prior to arrival: other (XOPENEX NEB TIMES 2, SOLU MEDROL 125 MG IV BY EMS) (MARANDA SEQUEIRA MD) Past Medical/Family History Physician Review I have reviewed the patient's past medical and family history. Any updates have been documented here. (MARANDA SEQUEIRA MD) Past Medical History Recent Fever: No Clinical Suspicion of Infectio: No New/Unexplained Change in Ment: No Past Medical History: Hypertension, Diabetes, COPD, GERD, Osteoarthritis Other Medical History: OSTEOARTHRITIS MACULAR DEGENERATION RHEUMATOID ARTHRITIS +SMOKER Past Surgical History: Cholecysctectomy, Hysterectomy, T&A Other Surgery: NECK SURGERY (MARANDA SEQUEIRA MD) Social History Smoking Cessation: Current every day smoker Counseling Performed: Yes Alcohol Use: None Any Illegal Drug Use: No (MARANDA SEQUEIRA MD) Other Last Tetanus: UTD (MARANDA SEQUEIRA MD) Review of Systems Review of Systems Constitutional: no symptoms EENTM: no symptoms Cardiovascular: no symptoms Respiratory: no symptoms Gastrointestinal: abdominal pain (EPIGASTRIC AND RUQ FOR 2 DAYS) Genitourinary: no symptoms Musculoskeletal: no symptoms Neurological: no symptoms Psychological: no symptoms Endocrine: no symptoms Hematological/Lymphatic: no symptoms Review of other systems All other systems reviewed and negative. (MARANDA SEQUEIRA MD) Physical Exam Related Data Allergies: Uncoded Allergies: PLASTIC TAPE (Allergy, Mild, 09/18/16) Triage Vital Signs Vital Signs Date Time Temp Pulse Resp B/P (MAP) Pulse Ox O2 Delivery O2 Flow Rate FiO2 09/02/19 05:19 98.0 82 22 139/79 100 Vital signs reviewed: Yes (MARANDA SEQUEIRA MD) Physical Exam CONSTITUTIONAL Constitutional: well-developed, well-nourished HENT HENT: normocephalic, atraumatic, oropharynx clear/moist, nose normal HENT L/R: left ext ear normal, right ext ear normal EYES Eyes: PERRL, conjunctivae normal NECK Neck: ROM normal PULMONARY Pulmonary: effort normal, other (MILD WHEEZING AT BASES BILATERAL, END EXPIRATORY) CARDIOVASCULAR Cardiovascular: regular rhythm, heart sounds normal, capillary refill normal, normal rate GASTROINTESTINAL Abdominal: soft, bowel sounds normal, tender (MODERATE TENDERNESS TO RUQ/EPIGA STRIC AREA) GENITOURINARY Genitourinary: exam deferred SKIN Skin: warm, dry MUSCULOSKELETAL Musculoskeletal: ROM normal NEUROLOGICAL Neurological: alert, oriented x 3, no gross motor or sensory deficits PSYCHOLOGICAL Psychological: mood/affect normal, judgement normal (MARANDA SEQUEIRA MD) Results Laboratory Laboratory Laboratory Tests Test 09/02/19 06:00 09/02/19 05:28 Urine Color Yellow (YELLOW) Urine Clarity Hazy (CLEAR) Urine pH 8.5 (5 - 7) Urine Specific [place]ron 1.020 (1.010-1.025) Urine Protein Negative (NEGATIVE) Urine Glucose (UA) Negative (NEGATIVE) Urine Ketones Negative (NEGATIVE) Urine Blood Trace (NEGATIVE) Urine Nitrite Negative (NEGATIVE) Urine Bilirubin Negative (NEGATIVE) Urine Urobilinogen 0.2 mg/dL (0.2 - 1) Urine Leukocyte Esterase Trace (NEGATIVE) Urine RBC 0-5 /HPF (0-5) Urine WBC 0-5 /HPF (0-5) Urine Epithelial Cells Few /LPF (NONE) Urine Bacteria Few /HPF (NONE) White Blood Count 9.79 x10e3/uL (4.8-10.8) Red Blood Count 4.05 x10e6/uL (3.6-5.1) Hemoglobin 11.9 g/dL (12.0-16.0) Hematocrit 39.3 % (34.2-44.1) Mean Corpuscular Volume 97.0 fL (81-99) Mean Corpuscular Hemoglobin 29.4 pg (28-32) Mean Corpuscular Hemoglobin Concent 30.3 g/dL (31-35) Red Cell Distribution Width 13.6 % (11.7-14.4) Platelet Count 301 x10e3/uL (140-360) Neutrophils (%) (Auto) 64.3 % (38.7-80.0) Lymphocytes (%) (Auto) 25.7 % (18.0-39.1) Monocytes (%) (Auto) 7.9 % (4.4-11.3) Eosinophils (%) (Auto) 1.2 % (0.0-6.0) Basophils (%) (Auto) 0.4 % (0.0-1.0) Neutrophils # (Auto) 6.3 (2.1-6.9) Lymphocytes # (Auto) 2.5 (1.0-3.2) Monocytes # (Auto) 0.8 (0.2-0.8) Eosinophils # (Auto) 0.1 (0.0-0.4) Basophils # (Auto) 0.0 (0.0-0.1) Absolute Immature Granulocyte (auto 0.05 x10e3/uL (0-0.1) Sodium Level 144 mmol/L (136-145) Potassium Level 3.9 mmol/L (3.5-5.1) Chloride Level 105 mmol/L (98-107) Carbon Dioxide Level 31 mmol/L (22-29) Anion Gap 11.9 mmol/L (8-16) Blood Urea Nitrogen 8 mg/dL (7-26) Creatinine 0.65 mg/dL (0.57-1.11) Estimat Glomerular Filtration Rate > 60 ML/MIN (60-) BUN/Creatinine Ratio 12 (6-25) Glucose Level 99 mg/dL (74-118) Calcium Level 10.4 mg/dL (8.4-10.2) Total Bilirubin 0.4 mg/dL (0.2-1.2) Aspartate Amino Transf (AST/SGOT) 24 IU/L (5-34) Alanine Aminotransferase (ALT/SGPT) 31 IU/L (0-55) Alkaline Phosphatase 99 IU/L (40-150) Creatine Kinase 24 IU/L (29-168) Creatine Kinase MB 1.90 ng/mL (0-5.0) Troponin I < 0.001 ng/mL (0-0.300) Total Protein 6.5 g/dL (6.5-8.1) Albumin 3.7 g/dL (3.5-5.0) Globulin 2.8 g/dL (2.3-3.5) Albumin/Globulin Ratio 1.3 (0.8-2.0) Amylase Level 87 U/L (25-125) Lipase 39 U/L (8-78) Laboratory Tests Test 09/02/19 05:28 Lab results reviewed: Yes (MARANDA SEQUEIRA MD) Lab results reviewed: Yes (AMMON ALMENDAREZ MD) Imaging Imaging results reviewed: Yes Impressions EXAMINATION: CHEST SINGLE (PORTABLE) INDICATION: COPD EXACERBATION COMPARISON: Chest radiograph 01/19/2019. FINDINGS: TUBES and LINES: None. LUNGS: Hyperinflated lungs with emphysematous changes. Unchanged mild patchy left basilar opacity, likely scarring or atelectasis. No superimposed consolidation. Mild bronchial wall thickening. No evidence of pulmonary edema. Calcified granuloma overlies the right lower lung. PLEURA: No pleural effusion or pneumothorax. HEART AND MEDIASTINUM: The cardiomediastinal silhouette is unremarkable. There are atherosclerotic calcifications within the aorta. BONES AND SOFT TISSUES: No acute osseous lesion. Soft tissues are unremarkable. Vertebral augmentation changes at T8. Partially seen cervical spine fixation hardware. UPPER ABDOMEN: No free air under the diaphragm. IMPRESSION: Emphysematous lungs without evidence of pneumonia. Findings suggestive of bronchitis. Signed by: Dr. Caitlin Puentes MD on 09/02/2019 8:01 AM EXAM: CT Abdomen and Pelvis WITH contrast INDICATION: Right upper quadrant abdominal pain. COMPARISON: Report from CT chest dated 02/02/[address] abdomen/pelvis dated 10/27/2011, although the images are not available for review at the time of this dictation. TECHNIQUE: Abdomen and pelvis were scanned utilizing a multidetector helical scanner from the lung base to the pubic symphysis after administration of IV contrast. Coronal and sagittal reformations were obtained. Routine protocol was performed. Scan was performed during portal venous phase. IV CONTRAST: 100 cc of Isovue-370 ORAL CONTRAST: None. COMPLICATIONS: None RADIATION DOSE: Total DLP: 147.3 mGy*cm Estimated effective dose: (DLP x 0.015 x size factor) mSv CTDIvol has been reviewed. It is below the limits set by the Radiation Protocol Committee (RPC). FINDINGS: LINES and TUBES: None. LOWER THORAX: Emphysematous lungs with mild dependent opacities, likely atelectasis. There is a 6 mm solid nodule in the right lower lobe on series 2, image 4 with areas of hyperdensity, likely partially calcified granuloma. Coronary atherosclerosis. HEPATOBILIARY: There is a 1.7 cm hyperdense lesion in segment 7 on series 2, image 11 and a 1.6 cm hyperdense lesion in segment 4 on image 15. Mild intrahepatic and extra hepatic biliary ductal dilatation, likely post cholecystectomy reservoir effect. GALLBLADDER: Status post cholecystectomy. SPLEEN: No splenomegaly. PANCREAS: No focal masses or ductal dilatation. ADRENALS: No adrenal nodules KIDNEYS/URETERS: No evidence of hydronephrosis or stone. There are bilateral renal cysts, measuring up to 5.2 cm in the left mid pole and 6.4 cm in the right mid pole. Other subcentimeter renal hypodensities are too small to characterize, but likely represent cysts. GI TRACT: No evidence of bowel obstruction. Scattered fluid-filled small bowel loops with mild mural enhancement. No distention or wall thickening. Likely partially visualized normal appendix (series 2, image 46). No secondary signs of appendicitis. PELVIC ORGANS/BLADDER: Status post hysterectomy. Distended bladder. LYMPH NODES: No lymphadenopathy. VESSELS: There is severe atherosclerotic disease in the aorta and major arterial branches. There is an aneurysmal suprarenal abdominal aorta, measuring up to 3.3 x 3.3 cm on series 2, image 22 containing areas of mural thrombus. There is extensive calcified and noncalcified plaque, most pronounced within the distal thoracic aortic and suprarenal abdominal aorta. Moderate focal stenosis of the suprarenal abdominal aorta on series 2, image 18. Limited evaluation secondary to phase of contrast, but possible penetrating atherosclerotic ulcer on series 2, image 17 and series 301, image 44. No evidence of wall thickening or surrounding inflammatory changes. No definite dissection is identified. PERITONEUM / RETROPERITONEUM: No free air or fluid. BONES AND SOFT TISSUES: No acute osseous abnormality. No suspicious lytic or blastic lesions. Diffuse osteopenia. CONCLUSION: Findings may represent nonspecific enteritis, which may be infectious or inflammatory in the appropriate clinical setting. 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 Severe calcified and noncalcified atherosclerotic plaque, most pronounced in the suprarenal abdominal aorta with moderate stenosis. 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 No evidence of aortic wall thickening or surrounding inflammatory changes. Suggest follow-up non-emergent CTA of the abdomen and pelvis. Distended bladder. Two hyperdense hepatic lesions are indeterminate, and could represent hemangiomas or other hepatic mass. Recommend follow-up nonemergent liver protocol CT or MRI for further evaluation. Emphysematous lungs with a 6 mm likely partially calcified granuloma in the right lower lobe. Suggest follow-up nonemergent chest CT in 6-12 months. Signed by: Dr. Caitlin Puentes MD on 09/02/2019 8:44 AM (AMMON ALMENDAREZ MD) Diagnostics Tests Diagnostic test(s) reviewed: Yes (AMMON ALMENDAREZ MD) Procedures 12 Lead ECG Interpretation Secure Software Assessor: Interpreted by ED physician Date: Sep 02, 2019 Time: 05:29 Rhythm: sinus rhythm Rate: normal BPM: 86 QRS axis: normal ST segments normal: Yes T waves normal: Yes Q waves: V1 Clinical Impression: abnormal ECG (MARANDA SEQUEIRA MD) Critical Care Time Subsequent provider I assumed direction of critical care for this patient from another provider of my specialty. (MARANDA SEQUEIRA MD) Assessment & Plan Assessment & Plan Final Impression: (1) Abdominal pain (2) COPD with acute exacerbation Assessment & Plan Patient presents by way of EMS with 2 complaints. First complaint is onset of shortness of breath 2 hours ago she has a history of COPD and states it feels like her COPD exacerbation. Complaint #2 is epigastric right upper quadrant pain for 4 days she denies nausea vomiting and diarrhea associated with this pain. CBC, CMP, amylase, lipase, UA, CT abdomen and pelvis, EKG, cardiac enzymes, chest x-ray ordered to eval for pancreatitis, myocardial infarction, elevated LFTs, pneumonia, pulmonary edema, collection N abnormality, UTI (MARANDA SEQUEIRA MD) Final Impression: (1) Abdominal pain (2) COPD with acute exacerbation (3) Enteritis (4) AAA (abdominal aortic aneurysm) Assessment & Plan ADMIT - SPOKE WITH DR MCBRIDE (AMMON ALMENDAREZ MD) Depart Disposition: ADMITTED Last Vital Signs Date Time Temp Pulse Resp B/P (MAP) Pulse Ox O2 Delivery O2 Flow Rate FiO2 09/02/19 05:19 98.0 82 22 139/79 100 (MARANDA SEQUEIRA MD) Home Meds Reported Medications Pantoprazole Sodium* (PROTONIX) 40 Mg Tablet.dr, 40 MG PO DAILY, TAB 04/11/19 Polyethylene Glycol 3350 (MIRALAX) 17 Gm Powd.pack, 1 DOSE PO DAILY 01/19/19 Hydrocodone Bit/Homatrop Me-Br (Hydrocodone-Homatropine Soln) 473 Ml Syrup, 5 ML PO Q6H PRN for COUGH 01/19/19 Budesonide (BUDESONIDE) 0.5 Mg/2 Ml Ampul.neb, 1 INH INH BID 01/19/19 Albuterol Sulf* (PROAIR HFA INHALER*) 8.5 Gm Inh, 2 INH INH PRN 01/19/19 Propylthiouracil (PROPYLTHIOURACIL) 50 Mg Tablet, 50 MG PO DAILY 09/16/16 Albuterol Sulfate (ALBUTEROL SULFATE) 1.25 Mg/3 Ml Vial.neb, NEB QID 12/27/15 Bisoprolol Fumarate (ZEBETA) 10 Mg Tab, 5 MG PO DAILY, #30 TAB 01/21/15 Tramadol Hcl* (ULTRAM 50MG*) 50 Mg Tab, 50 MG PO Q4HR PRN for MODERATE PAIN (4- 6), TAB 09/26/13 Timolol Maleate/Dorzolam Hcl (Dorzolamide-Timolol Eye Drops) 10 Ml Drops, 1 DROP OU BID 10/27/11 Amlodipine Besylate (Norvasc) 10 Mg Tablet, 10 MG PO DAILY 10/27/11 Calc/D3/Mag/Zn/Commercial Artist [place] (CALCIUM 600 MG + VIT D TAB) 1 Each Tablet, 1 TAB PO BID 10/27/11 Multivitamin (MULTIVITAMINS) 1 Each Tab.chew, 1 TAB PO DAILY 10/27/11 MARANDA SEQUEIRA MD Sep 02, 2019 05:51 AMMON ALMENDAREZ MD Sep 02, 2019 08:16
[2019-09-02 06:02] LABS: ALANINE AMINOTRANSFERASE 31 IU/L (0-55); ALBUMIN 3.7 g/dL (3.5-5.0); ALBUMIN/GLOBULIN RATIO 1.3 (0.8-2.0); ALKALINE PHOSPHATASE 99 IU/L (40-150); AMYLASE 87 U/L (25-125); ANION GAP 11.9 mmol/L (8-16); BLOOD UREA NITROGEN 8 mg/dL (7-26); BUN/CREATININE RATIO 12 (6-25); CALCIUM 10.4 mg/dL (8.4-10.2); CARBON DIOXIDE 31 mmol/L (22-29); CHLORIDE 105 mmol/L (98-107); CREATINE KINASE 24 IU/L (29-168); CREATININE, SERUM 0.65 mg/dL (0.57-1.11); EST GLOMERULAR FILTRATION RATE > 60 ML/MIN (60-); GLUCOSE 99 mg/dL (74-118); LIPASE 39 U/L (8-78); POTASSIUM 3.9 mmol/L (3.5-5.1); SODIUM 144 mmol/L (136-145)
[2019-09-02] MEDS ORDERED: IOPAMIDOL 370 MG/ML 200 ML INFUS..BTL INJ ONE (06:35)
[2019-09-02] MEDS ORDERED: SODIUM CHLORIDE 0.9% 50ML 50 ML ONE (06:36)
[2019-09-02 06:39] LABS: CLARITY,URINE HAZY (CLEAR); COLOR,URINE YELLOW (YELLOW); KETONES,URINE NEGATIVE (NEGATIVE); LEUKOCYTE ESTERASE ,URINE TRACE (NEGATIVE); NITRITE,URINE NEGATIVE (NEGATIVE); PROTEIN,URINE DIPSTICK NEGATIVE (NEGATIVE); URINE UROBILINOGEN 0.2 mg/dL (0.2 - 1)
[2019-09-02 06:40] LABS: BILIRUBIN,URINE NEGATIVE (NEGATIVE)
[2019-09-02 06:53] LABS: BACTERIA,URINE FEW /HPF; EPITHELIAL CELLS,URINE FEW /LPF; RBC,URINE 0-5 /HPF (0-5); WBC,URINE (MAN) 0-5 /HPF (0-5)
--- NOTE | 2019-09-02 08:04 | Diagnostic Imaging Report ---
EXAMINATION: CHEST SINGLE (PORTABLE) INDICATION: COPD EXACERBATION COMPARISON: Chest radiograph 01/19/2019. FINDINGS: TUBES and LINES: None. LUNGS: Hyperinflated lungs with emphysematous changes. Unchanged mild patchy left basilar opacity, likely scarring or atelectasis. No superimposed consolidation. Mild bronchial wall thickening. No evidence of pulmonary edema. Calcified granuloma overlies the right lower lung. PLEURA: No pleural effusion or pneumothorax. HEART AND MEDIASTINUM: The cardiomediastinal silhouette is unremarkable. There are atherosclerotic calcifications within the aorta. BONES AND SOFT TISSUES: No acute osseous lesion. Soft tissues are unremarkable. Vertebral augmentation changes at T8. Partially seen cervical spine fixation hardware. UPPER ABDOMEN: No free air under the diaphragm. IMPRESSION: Emphysematous lungs without evidence of pneumonia. Findings suggestive of bronchitis. Signed by: Dr. Caitlin Puentes MD on 09/02/2019 8:01 AM
--- NOTE | 2019-09-02 08:47 | Diagnostic Imaging Report ---
EXAM: CT Abdomen and Pelvis WITH contrast INDICATION: Right upper quadrant abdominal pain. COMPARISON: Report from CT chest dated 02/02/[address] abdomen/pelvis dated 10/27/2011, although the images are not available for review at the time of this dictation. TECHNIQUE: Abdomen and pelvis were scanned utilizing a multidetector helical scanner from the lung base to the pubic symphysis after administration of IV contrast. Coronal and sagittal reformations were obtained. Routine protocol was performed. Scan was performed during portal venous phase. IV CONTRAST: 100 cc of Isovue-370 ORAL CONTRAST: None. COMPLICATIONS: None RADIATION DOSE: Total DLP: 147.3 mGy*cm Estimated effective dose: (DLP x 0.015 x size factor) mSv CTDIvol has been reviewed. It is below the limits set by the Radiation Protocol Committee (RPC). FINDINGS: LINES and TUBES: None. LOWER THORAX: Emphysematous lungs with mild dependent opacities, likely atelectasis. There is a 6 mm solid nodule in the right lower lobe on series 2, image 4 with areas of hyperdensity, likely partially calcified granuloma. Coronary atherosclerosis. HEPATOBILIARY: There is a 1.7 cm hyperdense lesion in segment 7 on series 2, image 11 and a 1.6 cm hyperdense lesion in segment 4 on image 15. Mild intrahepatic and extra hepatic biliary ductal dilatation, likely post cholecystectomy reservoir effect. GALLBLADDER: Status post cholecystectomy. SPLEEN: No splenomegaly. PANCREAS: No focal masses or ductal dilatation. ADRENALS: No adrenal nodules KIDNEYS/URETERS: No evidence of hydronephrosis or stone. There are bilateral renal cysts, measuring up to 5.2 cm in the left mid pole and 6.4 cm in the right mid pole. Other subcentimeter renal hypodensities are too small to characterize, but likely represent cysts. GI TRACT: No evidence of bowel obstruction. Scattered fluid-filled small bowel loops with mild mural enhancement. No distention or wall thickening. Likely partially visualized normal appendix (series 2, image 46). No secondary signs of appendicitis. PELVIC ORGANS/BLADDER: Status post hysterectomy. Distended bladder. LYMPH NODES: No lymphadenopathy. VESSELS: There is severe atherosclerotic disease in the aorta and major arterial branches. There is an aneurysmal suprarenal abdominal aorta, measuring up to 3.3 x 3.3 cm on series 2, image 22 containing areas of mural thrombus. There is extensive calcified and noncalcified plaque, most pronounced within the distal thoracic aortic and suprarenal abdominal aorta. Moderate focal stenosis of the suprarenal abdominal aorta on series 2, image 18. Limited evaluation secondary to phase of contrast, but possible penetrating atherosclerotic ulcer on series 2, image 17 and series 301, image 44. No evidence of wall thickening or surrounding inflammatory changes. No definite dissection is identified. PERITONEUM / RETROPERITONEUM: No free air or fluid. BONES AND SOFT TISSUES: No acute osseous abnormality. No suspicious lytic or blastic lesions. Diffuse osteopenia. CONCLUSION: Findings may represent nonspecific enteritis, which may be infectious or inflammatory in the appropriate clinical setting. 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 Severe calcified and noncalcified atherosclerotic plaque, most pronounced in the suprarenal abdominal aorta with moderate stenosis. 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 No evidence of aortic wall thickening or surrounding inflammatory changes. Suggest follow-up non-emergent CTA of the abdomen and pelvis. Distended bladder. Two hyperdense hepatic lesions are indeterminate, and could represent hemangiomas or other hepatic mass. Recommend follow-up nonemergent liver protocol CT or MRI for further evaluation. Emphysematous lungs with a 6 mm likely partially calcified granuloma in the right lower lobe. Suggest follow-up nonemergent chest CT in 6-12 months. Signed by: Dr. Caitlin Puentes MD on 09/02/2019 8:44 AM
[2019-09-02] MEDS ORDERED: METHYLPREDNISOLONE SOD SUCC 125 MG/2ML VIAL IV STA (09:05)
[2019-09-02] MEDS ORDERED: METRONIDAZOLE 500MG/NS 100ML IV SCH (09:15)
[2019-09-02] MEDS ORDERED: LEVOFLOXACIN 500MG/D5W 100ML IV SCH (09:15)
[2019-09-02] MEDS ORDERED: ONDANSETRON HCL INJ 2MG/ML 2ML 2 MG/ML VIAL IV PRN (09:15)
[2019-09-02] MEDS ORDERED: MORPHINE SULFATE 2 MG/ML SYR 1ML IV PRN (09:15)
--- OUTSIDE RECORDS SUMMARY | 2019-09-02 09:28 | XMS REPORT | Continuity of Care Document ---
Author Author [facility] t Organization [facility] Address [address] [place] [address] Phone Unavailable Care Team Providers Care Host/Hostess Restaurant Name Role Phone REED MITCHELL, Ronald RUIZ PCP Mary ALMENDAREZ Attphys Unavailable Ronald MCBRIDE Attphys Unavailable Tommy DAVIS Attphys Unavailable Ronald CRARENO Attphys Unavailable Yolanda SEQUEIRA Attphys Unavailable Ronald MCBRIDE Admphys Unavailable Payers Payer Name Policy Type Policy Number Effective Date Expiration Date S ource Medicare A & B [id number] 2009 00:00:00 [facility] [id number] 2009 00:00:00 [facility] Problems Condition Name Condition Details Condition Category Status Onset Date Resolution Date Last Treatment Date Treating Clinician Comments Source 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 Active [facility] Chronic obstructive pulmonary disease with acute exace rbation COPD with acute exacerbation Problem Active [facility] Hypoxemia Hypoxemia Problem Active [facility] Tobacco abuse Tobacco abuse Problem Active [facility] Allergies, Adverse Reactions, Alerts Allergy Name Allergy Type Status Severity Reaction(s) Onset Date Inacti ve Date Treating Clinician Comments Source PLASTIC TAPE Allergy to Substance Active Mild 2016-09-18 00:00:0 0 [facility] Medications Ordered Medication Name Filled Medication Name Start Date Stop Da te Current Medication? Ordering Clinician Indication Dosage Frequency Signature (SIG) Comments Components Source Prednisone 20 Mg Tab, 40 Mg Oral Prednisone 20 Mg Tab, 40 Mg Oral 2018-11-05 00:00:00 2018-11-10 00:00:00 Saira Wu Md 40 Elsa ly [facility] Tramadol Hcl (Ultram) 50 Mg Tablet, 50 Mg Oral Tramado l Hcl (Ultram) 50 Mg Tablet, 50 Mg Oral 2018-01-30 00:00:00 2018-11-10 00:00:00 Saira Wu Md 50 Every 6 Hours as needed for Pain [facility] Albuterol Sulfate 1.25 Mg/3 Ml Vial.neb Albuterol Sulfate 1. 25 Mg/3 Ml Vial.neb Yes Four Times Daily [facility] Albuterol Sulfate (Proair Hfa Inhaler*) 8.5 Gm Inh Alb uterol Sulfate (Proair Hfa Inhaler*) 8.5 Gm Inh Yes 2 As Needed [facility] Amlodipine Besylate (Norvasc) 10 Mg Tablet Amlodipine Besylate (Norvasc) 10 Mg Tablet Yes 10 Daily [facility] Bisoprolol Fumarate (Zebeta) 10 Mg Tab Bisoprolol Fumarate (Zebe ta) 10 Mg Tab Yes 5 Daily [facility] Budesonide 0.5 Mg/2 Ml Ampul.neb Budesonide 0.5 Mg/2 Ml Ampul.neb Yes 1 Twice A Day [facility] Calc/D3/Mag/Zn/[place] [employer] [address]/[place] (Calcium 600 Mg + Vit D Tab) 1 Each Tablet Calc/D3/Mag/Zn/[place] [address]/[place] (Calcium 600 Mg + Vit D Tab) 1 Each Tablet Yes 1 Twice A Day [facility] Cimetidine 300 Mg Tablet Cimetidine 300 Mg Tablet Yes 300 Twice A Day [facility] Dorzolamide Hcl 10 Ml Drops Dorzolamide Hcl 10 Ml Drops Yes 1 Twice A Day [facility] Doxycycline Hyclate 100 Mg Capsule Doxycycline Hyclate 100 Mg Capsule Yes 100 Twice A Day [facility] Hydrocodone Bit/Homatrop Me-Br (Hydrocodone-Homatropin e Soln) 473 Ml Syrup Hydrocodone Bit/Homatrop Me-Br (Hydrocodone-Homatropine Soln) 473 Ml Syrup Yes 5 Every 6 Hours as needed for Cough [facility] Multivitamin (Multivitamins) 1 Each Tab.chew Multivita min (Multivitamins) 1 Each Tab.chew Yes 1 Daily [facility] Polyethylene Glycol 3350 (Miralax) 17 Gm Powd.pack Wei yethylene Glycol 3350 (Miralax) 17 Gm Powd.pack Yes 1 Daily [facility] Prednisone 20 Mg Tab Prednisone 20 Mg Tab Yes 20 Daily [facility] Propylthiouracil 50 Mg Tablet Propylthiouracil 50 Mg Tablet Yes 50 Twice A Day [facility] Sennosides/Docusate Sodium (Stool Softener Tablet) 1 E ach Tablet Sennosides/Docusate Sodium (Stool Softener Tablet) 1 Each Tablet Yes Daily [facility] Timolol Maleate/Dorzolam Hcl (Dorzolamide-Timolol Eye Drops) 10 Ml Drops Timolol Maleate/Dorzolam Hcl (Dorzolamide-Timolol Eye Drops) 10 Ml Drops Yes 1 Twice A Day [facility] Tramadol Hcl (Ultram 50MG*) 50 Mg Tab Tramadol Hcl (Ultram 50MG*) 5 0 Mg Tab Yes 50 Every 4 Hours as needed for Moderate Gino n (4-6) [facility] Albuterol Sulfate (Proair Hfa Inhaler*) 8.5 Gm Inh, Inhalation Albuterol Sulfate (Proair Hfa Inhaler*) 8.5 Gm Inh, Inhalation 2018-12-28 4 00:00:00 No As Needed [facility] Anoro , Inhalation Anoro , Inhalation 2018-11-10 00:00:00 No As Needed [facility] Tylenol , Oral Tylenol , Oral 2018-11-10 00:00:00 No As Needed [facility] Omeprazole (Prilosec) 40 Mg Capsule., 40 Mg Oral Ome prazole (Prilosec) 40 Mg Capsule., 40 Mg Oral 2015-12-27 00:00:00 No 40 D aily [facility] Albuterol Neb. Tx , Albuterol Neb. Tx , 2015-01-09 00:00:00 No Four Times Daily [facility] Bisoprolol Fumarate 5 Mg Tablet, 2.5 Mg Oral Bisoprolo l Fumarate 5 Mg Tablet, 2.5 Mg Oral 2015-01-09 00:00:00 No 2.5 Twice A Day [facility] Budesonide 0.5 Mg/2 Ml Ampul.[facility], 2 Ml Nebullizer [facility] sonide 0.5 Mg/2 Ml Ampul.[facility], 2 Ml Nebullizer 2015-01-09 00:00:00 No 2 Twice A Day [facility] Cheritussin Syrup , Cheritussin Syrup , 2015-01-09 00:00:00 No Daily [facility] Hydrocodone Bit/Acetaminophen (Lortab 10 -500 Tablet) 1 Each Tablet, 1-2 Tab Oral Hydrocodone Bit/Acetaminophen (Lortab 10 -500 Tablet) 1 Each Tablet, 1-2 Tab Oral 2015-01-09 00:00:00 No Every 6 Hours as n eeded [facility] Oxygen , Nasal Oxygen , Nasal 2015-01-09 00:00:00 No Daily [facility] Polyethylene Glycol 3350 (Miralax) 119 Gm Powder, Or al Polyethylene Glycol 3350 (Miralax) 119 Gm Powder, Oral 2015-01-09 00:00:00 No Daily [facility] Advair , 1 Inh Inhalation Advair , 1 Inh Inhalation 00:00:00 No 1 Twice A Day [facility] Ranitidine Hcl (Acid Tour Consultant) 150 Mg Tablet, 150 Mg Or al Ranitidine Hcl (Acid Tour Consultant) 150 Mg Tablet, 150 Mg Oral 2014-07-03 00:00:00 No 150 Daily [facility] Albuterol Sulf , 0.83 Mg Inhalation Albuterol Sulf , 0.83 Mg Inh alation 2013-09-28 00:00:00 No .83 Four Times Daily [facility] Albuterol Sulfate (Proair Hfa Inhaler*) 8.5 Gm Inh, Oral Albuterol Sulfate (Proair Hfa Inhaler*) 8.5 Gm Inh, Oral 2013-09-28 00:00:00 No [facility] Aspirin 81 Mg Tablet., 1 Mg Oral Aspirin 81 Mg Tablet., 1 Mg Oral 2013-09-28 00:00:00 No 1 Daily [facility] Miralax , 3350 Oral Miralax , 3350 Oral 2013-09-28 00:00:00 No 3350 [facility] Polyethylene Glycol 3350 (Miralax) 255 Gm Powder, 255 Gm Oral Polyethylene Glycol 3350 (Miralax) 255 Gm Powder, 255 Gm Oral 2013-09-28 00:00:00 No 255 As Needed [facility] Prednisone 20 Mg Tab, 1 Tab Oral Prednisone 20 Mg Tab, 1 Tab Ora l 2013-09-28 00:00:00 No 1 Twice A Day [facility] Ranitidine Hcl (Zantac) 150 Mg Tablet, 150 Mg Oral Ran itidine Hcl (Zantac) 150 Mg Tablet, 150 Mg Oral 2013-09-28 00:00:00 No 150 D aily [facility] Simvastatin 20 Mg Tablet, 20 Mg Oral Simvastatin 20 Mg Tablet, 2 0 Mg Oral 2013-09-28 00:00:00 No 20 Bedtime [facility] Sulfamethoxazole/Trimethoprim (Bactrim Ds Tablet) 1 Ea ch Tablet, 1 Tab Oral Sulfamethoxazole/Trimethoprim (Bactrim Ds Tablet) 1 Each Tablet, 1 Tab Oral 2013-09-28 00:00:00 No 1 Twice A Day [facility] Procedures This patient has no known procedures. Encounters Start Date/Time End Date/Time Encounter Type Admission Type [facility] Care Department Encounter ID Source 2019-01-19 16:35:00 2019-01-20 09:07:00 Discharged Inpatient (obs) 1 MARIA TERESA MCBRIDEAHAM [facility] [id number] [facility] 2018-11-10 08:13:00 2018-11-10 10:43:00 Departed Emergency Room 1 DIANE DAVISIAN [facility] [id number] [facility] 2018-11-04 23:03:00 2018-11-05 00:32:00 Departed Emergency Room 1 PALMER CARRENO [facility] [id number] [facility] 2018-04-06 21:09:00 2018-04-06 23:02:00 Departed Emergency Room 1 MARANDA SEQUEIRA [facility] [id number] [facility] 2018-01-30 22:05:00 2018-01-30 23:59:00 Departed Emergency Room 1 PALMER CARRENO [facility] [id number] [facility] 2017-12-15 09:44:00 2017-12-15 09:44:00 Registered Clinic 3 REEDJOSEPH [facility] [id number] [facility] Results Test Description Test Time Test Comments Results Result Comments Source CT ABDOMEN/PELVIS W 2019-09-02 08:22:00 [place] [address] Patient Name: EVAN MICHAEL MR #: [id number] : 1945 Age/Sex: 74/F Req #: [id number] Adm Physician: Ordered by: MARANDA SEQUEIRA MD Report #: [id number] Location: ER Room/Bed: Procedure: [id number] CT/CT ABDOMEN/PELVIS W Exam Date: 09/02/19 Exam Time: 0650 REPORT STATUS: Signed EXAM: CT Abdomen and Pelvis WITH contrast INDICATION: Right upper quadrant abdominal pain. COMPARISON: Report from CT chest dated 02/02/[address] abdomen/pelvis dated 10/27/2011, although the images are not available for review at the time of this dictation. TECHNIQUE: Abdomen and pelvis were scanned utilizing a multidetector helical scanner from the lung base to the pubic symphysis after administration of IV contrast. Coronal and sagittal reformations were obtained. Routine protocol was performed. Scan was performed during portal venous phase. IV CONTRAST: 100 cc of Isovue-370 ORAL CONTRAST: None. COMPLICATIONS: None RADIATION DOSE: Total DLP: 147.3 mGy*cm Estimated effective dose: (DLP x 0.015 x size factor) mSv CTDIvol has been reviewed. It is below the limits set by the Radiation Protocol Committee (RPC). FINDINGS: LINES and TUBES: None. LOWER THORAX: Emphysematous lungs with mild dependent opacities, likely atelectasis. There is a 6 mm solid nodule in the right lower lobe on series 2, image 4 with areas of hyperdensity, likely partially calcified granuloma. Coronary atherosclerosis. HEPATOBILIARY: There is a 1.7 cm hyperdense lesion in segment 7 on series 2, image 11 and a 1.6 cm hyperdense lesion in segment 4 on image 15. Mild intrahepatic and extra hepatic biliary ductal dilatation, likely post cholecystectomy reservoir effect. GALLBLADDER: Status post cholecystectomy. SPLEEN: No splenomegaly. PANCREAS: No focal masses or ductal dilatation. ADRENALS: No adrenal nodules KIDNEYS/URETERS: No evidence of hydronephrosis or stone. There are bilateral renal cysts, measuring up to 5.2 cm in the left mid pole and 6.4 cm in the right mid pole. Other subcentimeter renal hypodensities are too small to characterize, but likely represent cysts. GI TRACT: No evidence of bowel obstruction. Scattered fluid-filled small bowel loops with mild mural enhancement. No distention or wall thickening. Likely partially visualized normal appendix (series 2, image 46). No secondary signs of appendicitis. PELVIC ORGANS/BLADDER: Status post hysterectomy. Distended bladder. LYMPH NODES: No lymphadenopathy. VESSELS: There is severe atherosclerotic disease in the aorta and major arterial branches. There is an aneurysmal suprarenal abdominal aorta, measuring up to 3.3 x 3.3 cm on series 2, image 22 containing areas of mural thrombus. There is extensive calcified and noncalcified plaque, most pronounced within the distal thoracic aortic and suprarenal abdominal aorta. Moderate focal stenosis of the suprarenal abdominal aorta on series 2, image 18. Limited evaluation secondary to phase of contrast, but possible penetrating atherosclerotic ulcer on series 2, image 17 and series 301, image 44. No evidence of wall thickening or surrounding inflammatory changes. No definite dissection is identified. PERITONEUM / RETROPERITONEUM: No free air or fluid. BONES AND SOFT TISSUES: No acute osseous abnormality. No suspicious lytic or blastic lesions. Diffuse osteopenia. CONCLUSION: Findings may represent nonspecific enteritis, which may be infectious or infl ammatory in the appropriate clinical setting. 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 Severe calcified and noncalcified atherosclerotic plaque, most pronounced in the suprarenal abdominal aorta with moderate stenosis. 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 No evidence of aortic wall thickening or surrounding inflammatory changes. Suggest follow- up non-emergent CTA of the abdomen and pelvis. Distended bladder. Two hyperdense hepatic lesions are indeterminate, and could represent hemangiomas or other hepatic mass. Recommend follow-up nonemergent liver protocol CT or MRI for further evaluation. Emphysematous lungs with a 6 mm likely partially calcified granuloma in the right lower lobe. Suggest follow-up nonemergent chest CT in 6-12 months. Signed by: Dr. Austin Manuel MD on 09/02/2019 8:44 AM Dictated By: AUSTIN MANUEL MD 3 Transcribed By: LUCINDA on 09/02/19843 COPY TO: MARANDA SEQUEIRA MD CHEST SINGLE (PORTABLE) 2019-09-02 07:57:00 [place] [address] Patient Name: EVAN MICHAEL MR #: [id number] : 1945 Age/Sex: 74/F Req #: [id number] Adm Physician: Ordered by: MARANDA SEQUEIRA MD Report #: [id number] Location: ER Room/Bed: Procedure: [id number] DX/CHEST SINGLE (PORTABLE) Exam Date: 09/02/19 Exam Time: 0650 REPORT STATUS: Signed EXAMINATION: CHEST SINGLE (PORTABLE) INDICATION: COPD EXACERBATION COMPARISON: Chest radiograph 01/19/2019. FINDINGS: TUBES and LINES: None. LUNGS: Hyperinflated lungs with emphysematous changes. Unchanged mild patchy left basilar opacity, likely scarring or atelectasis. No superimposed consolidation. Mild bronchial wall thickening. No evidence of pulmonary edema. Calcified granuloma overlies the right lower lung. PLEURA: No pleural effusion or pneumothorax. HEART AND MEDIASTINUM: The cardiomediastinal silhouette is unremarkable. There are atherosclerotic calcifications within the aorta. BONES AND SOFT TISSUES: No acute osseous lesion. Soft tissues are unremarkable. Vertebral augmentation changes at T8. Partially seen cervical spine fixation hardware. UPPER ABDOMEN: No free air under the diaphragm. IMPRESSION: Emphysematous lungs without evidence of pneumonia. Findings suggestive of bronchitis. Signed by: Dr. Austin Manuel MD on 09/02/2019 8:01 AM Dictated By: AUSTIN MANUEL MD 0 Transcribed By: LUCINDA on 09/02/19800 COPY TO: MARANDA SEQUEIRA MD Creatine Kinase MB 2019-01-20 07:35:00 Test Item Creatine Kinase MB (test code = 69041-9) 3.70 0-5.0 [facility] [id number] 07:35:00* Test Item Value Reference Range Interpretation Comments Troponin I (test code = UAS5143) 0.087 0-0.300 [facility]le[facility]ine Cbisgw8827-71-61 07:29:00* Test Item Value Reference Range Interpretation Comments Creatine Kinase (test code = 2157-6) 54 29-168 [facility] Zmahp3523-77-08 07:12:00* Test Item Value Reference Range Interpretation Comments Sodium Level (test code = 2951-2) 140 136-145 [facility]assium Oquvp0258-63-34 07:12:00* Test Item Value Reference Range Interpretation Comments Potassium Level (test code = 2823-3) 3.9 3.5-5.1 [facility]leChloride Rbakn5154-90-85 07:12:00* Test Item Value Reference Range Interpretation Comments Chloride Level (test code = 2075-0) 102 98-107 [facility]leCarbon Dioxide Bdpbk9579-08-48 07:12:00* Test Item Value Reference Range Interpretation Comments Carbon Dioxide Level (test code = 2028-9) 25 22-29 [facility]leAnion Oxs4743-85-92 07:12:00* Test Item Value Reference Range Interpretation Comments Anion Gap (test code = 13014-8) 16.9 8-16 H [facility]leBlood Urea Fnjbfwds2256-55-36 07:12:00* Test Item Value Reference Range Interpretation Comments Blood Urea Nitrogen (test code = 3094-0) 9 7-26 [facility]leCreatinine2019-10-25 07:12:00* Test Item Value Reference Range Interpretation Comments Creatinine (test code = 2160-0) 0.61 0.57-1.11 [facility]leBUN/Creatinine Fautu3427-99-94 07:12:00* Test Item Value Reference Range Interpretation Comments BUN/Creatinine Ratio (test code = 3097-3) 15 6- [facility]leEstimat Glomerular Filtration Rate 2019-01-20 07:12:00* Test Item Value Reference Range Interpretation Comments Estimat Glomerular Filtration Rate (test code = 198375700) > 60 >60 Ranges were taken from the National Kidney Disease Education Program and the [facility] literature.Reference ranges:60 or greater: Mmkhrw13-33 ( for 3 consecutive months): Chronic kidney disease 15 or less: Kidney failureTexas Health [facility] Hospital [facility]leGlucose Bejgv4270-55-29 07:12:00* Test Item Value Reference Range Interpretation Comments Glucose Level (test code = ORP4331) 122 74-118 H [facility]leCalcium Pyxrs4161-78-59 07:12:00* Test Item Value Reference Range Interpretation Comments Calcium Level (test code = 48067-1) 9.9 8.4-10.2 [facility]lePhosphorus Lapul0797-28-86 07:12:00* Test Item Value Reference Range Interpretation Comments Phosphorus Level (test code = TSM2975) 3.4 2.3-4.7 [facility]leMagnesium Oxnuz4798-81-82 07:12:00* Test Item Value Reference Range Interpretation Comments Magnesium Level (test code = 25369-7) 2.0 1.3-2.1 [facility]leTotal Kubqjyxnd9196-90-68 07:12:00* Test Item Value Reference Range Interpretation Comments Total Bilirubin (test code = 1975-2) 0.3 0.2-1.2 [facility]leAspartate Amino Transf (AST/SGOT) 2019-01-20 07:12:00* Test Item Value Reference Range Interpretation Comments Aspartate Amino Transf (AST/SGOT) (test code = Aspartate Amino Transf (AST/SGOT)) 21 5-34 [facility]leAlanine Aminotransferase (ALT/SGPT) 2019-01-20 07:12:00* Test Item Value Reference Range Interpretation Comments Alanine Aminotransferase (ALT/SGPT) (test code = 1742-6) 17 0-55 [facility]leTotal Udgiier9586-36-75 07:12:00* Test Item Value Reference Range Interpretation Comments Total Protein (test code = 2885-2) 7.1 6.5-8.1 [facility]leAlbumin2019-10-25 07:12:00* Test Item Value Reference Range Interpretation Comments Albumin (test code = 1751-7) 3.7 3.5-5.0 [facility]leGlobulin2019-10-25 07:12:00* Test Item Value Reference Range Interpretation Comments Globulin (test code = 78995-9) 3.4 2.3-3.5 [facility]leAlbumin/Globulin Wunbt0755-37-54 07:12:00 * Test Item Value Reference Range Interpretation Comments Albumin/Globulin Ratio (test code = 1759-0) 1.1 0.8-2.0 [facility]leAlkaline Hicfbikqedr2090-36-45 07:12:00* Test Item Value Reference Range Interpretation Comments Alkaline Phosphatase (test code = 6768-6) 79 40-150 [facility]leWhite Blood Litso0508-77-32 06:47:00* Test Item Value Reference Range Interpretation Comments White Blood Count (test code = 6690-2) 6.57 4.8-10.8 [facility]leRed Blood Dmbvf6769-24-63 06:47:00* Test Item Value Reference Range Interpretation Comments Red Blood Count (test code = 789-8) 4.41 3.6-5.1 [facility]leHemoglobin2019-10-25 06:47:00* Test Item Value Reference Range Interpretation Comments Hemoglobin (test code = 18010-8) 13.1 12.0-16.0 [facility]leHematocrit2019-10-25 06:47:00* Test Item Value Reference Range Interpretation Comments Hematocrit (test code = 4544-3) 41.6 34.2-44.1 [facility]leMean Corpuscular Nxxezz0344-06-07 06:47:00* Test Item Value Reference Range Interpretation Comments Mean Corpuscular Volume (test code = 787-2) 94.3 81-99 [facility]leMean Corpuscular Pasfziqyep6650-85-36 06:47:00* Test Item Value Reference Range Interpretation Comments Mean Corpuscular Hemoglobin (test code = 785-6) 29.7 28-32 [facility]leMean Corpuscular Hemoglobin Concent 2019-01-20 06:47:00* Test Item Value Reference Range Interpretation Comments Mean Corpuscular Hemoglobin Concent (test code = 786-4) 31.5 31-35 [facility]leRed Cell Distribution Xrbci7219-98-76 06:47:00* Test Item Value Reference Range Interpretation Comments Red Cell Distribution Width (test code = 35170-5) 13.5 11.7 -14.4 [facility]lePlatelet Rkdwl7719-05-04 06:47:00* Test Item Value Reference Range Interpretation Comments Platelet Count (test code = 777-3) 377 140-360 H [facility]leNeutrophils (%) (Auto)2019-01-20 06:47:00 * Test Item Value Reference Range Interpretation Comments Neutrophils (%) (Auto) (test code = 81554-9) 84.9 38.7-80.0 H [facility]leLymphocytes (%) (Auto)2019-01-20 06:47:00 * Test Item Value Reference Range Interpretation Comments Lymphocytes (%) (Auto) (test code = 736-9) 10.8 18.0-39.1 L [facility]leMonocytes (%) (Auto)2019-01-20 06:47:00* Test Item Value Reference Range Interpretation Comments Monocytes (%) (Auto) (test code = 5905-5) 1.2 4.4-11.3 L [facility]leEosinophils (%) (Auto)2019-01-20 06:47:00 * Test Item Value Reference Range Interpretation Comments Eosinophils (%) (Auto) (test code = 713-8) 2.3 0.0-6.0 [facility]leBasophils (%) (Auto)2019-01-20 06:47:00* Test Item Value Reference Range Interpretation Comments Basophils (%) (Auto) (test code = 706-2) 0.3 0.0-1.0 [facility]leIM GRANULOCYTES %2019-01-20 06:47:00* Test Item Value Reference Range Interpretation Comments IM GRANULOCYTES % (test code = IM GRANULOCYTES %) 0.5 0.0- 1.0 [facility]leNeutrophils # (Auto)2019-01-20 06:47:00* Test Item Value Reference Range Interpretation Comments Neutrophils # (Auto) (test code = 751-8) 5.6 2.1-6.9 [facility]leLymphocytes # (Auto)2019-01-20 06:47:00* Test Item Value Reference Range Interpretation Comments Lymphocytes # (Auto) (test code = 28430-7) 0.7 1.0-3.2 L [facility]leMonocytes # (Auto)2019-01-20 06:47:00* Test Item Value Reference Range Interpretation Comments Monocytes # (Auto) (test code = 742-7) 0.1 0.2-0.8 L [facility]leEosinophils # (Auto)2019-01-20 06:47:00* Test Item Value Reference Range Interpretation Comments Eosinophils # (Auto) (test code = 711-2) 0.2 0.0-0.4 [facility] (Auto)2019-01-20 06:47:00* Test Item Value Reference Range Interpretation Comments Basophils # (Auto) (test code = 704-7) 0.0 0.0-0.1 [facility]le[facility] Immature Granulocyte (auto 2019-01-20 06:47:00* Test Item Value Reference Range Interpretation Comments Absolute Immature Granulocyte (auto (darrell t code = Absolute Immature Granulocyte (auto) 0.03 0-0.1 [facility]le[facility] [id number] 21:24:00* Test Item Value Reference Range Interpretation Comments Urine WBC (test code = 5821-4) NONE 0-5 [facility]le[facility] DOX2237-37-42 21:24:00* Test Item Value Reference Range Interpretation Comments Urine RBC (test code = 71444-6) NONE 0-5 [facility] Mhinhkzk9036-51-97 21:24:00* Test Item Value Reference Range Interpretation Comments Urine Bacteria (test code = 86229-4) NONE NONE [facility]le[facility] Epithelial Tlyrh6819-79-50 21:24:00 * Test Item Value Reference Range Interpretation Comments Urine Epithelial Cells (test code = 37152-8) NONE NONE [facility]leU[facility] Knljh8359-36-19 21:18:00* Test Item Value Reference Range Interpretation Comments Urine Color (test code = 5778-6) YELLOW YELLOW [facility] Dwlsvtn6074-52-89 21:18:00* Test Item Value Reference Range Interpretation Comments Urine Clarity (test code = 04788-7) CLEAR CLEAR [facility]leU[facility] Specific Yebhrxc5385-40-60 21:18:00 * Test Item Value Reference Range Interpretation Comments Urine Specific [place] (test code = 5811-5) 1.010 1.010-1.02 5 [facility]le[facility] fF8863-19-80 21:18:00* Test Item Value Reference Range Interpretation Comments Urine pH (test code = 57504-9) 8 5-7 [facility] Leukocyte Nkcdlgzl1108-80-66 21:18:00* Test Item Value Reference Range Interpretation Comments Urine Leukocyte Esterase (test code = 92736-8) NEGATIVE NEGATIV E [facility] Wfrmswl5364-94-73 21:18:00* Test Item Value Reference Range Interpretation Comments Urine Nitrite (test code = 24076-9) NEGATIVE NEGATIVE [facility] Gandsrb9047-38-32 21:18:00* Test Item Value Reference Range Interpretation Comments Urine Protein (test code = 91947-4) NEGATIVE NEGATIVE [facility]le[facility] Glucose (UA)2019-01-19 21:18:00* Test Item Value Reference Range Interpretation Comments Urine Glucose (UA) (test code = 82792-3) 1+ NEGATIVE H [facility] Jsxpnzz7810-05-56 21:18:00* Test Item Value Reference Range Interpretation Comments Urine Ketones (test code = 71802-8) NEGATIVE NEGATIVE [facility] Knzlcezdyocz9348-05-67 21:18:00* Test Item Value Reference Range Interpretation Comments Urine Urobilinogen (test code = 23663-0) 0.2 0.2-1 [facility] Zewuguhyt6440-58-66 21:18:00* Test Item Value Reference Range Interpretation Comments Urine Bilirubin (test code = 1977-8) NEGATIVE NEGATIVE [facility]le[facility] Bosvz1026-37-45 21:18:00* Test Item Value Reference Range Interpretation Comments Urine Blood (test code = 87277-3) NEGATIVE NEGATIVE [facility]leInfluenza Virus Types A,B Antigen 2019-01-19 19:24:00* Test Item Value Reference Range Interpretation Comments Influenza Virus Types A,B Antigen (test code = 62844-0) NEGATIVE NEGATIVE [facility]leThyroid Stimulating Hormone (TSH) 2019-01-19 17:49:00* Test Item Value Reference Range Interpretation Comments Thyroid Stimulating Hormone (TSH) (test code = 65185-9) 0.531 0.350-4.940 [facility]leB-Type Natriuretic Kpefdia0904-22-39 17:44:00* Test Item Value Reference Range Interpretation Comments B-Type Natriuretic Peptide (test code = 15766-6) 100.1 0-100 H [facility] AzleLipase2019-10-24 17:26:00* Test Item Value Reference Range Interpretation Comments Lipase (test code = 3040-3) 12 8-78 [facility]leProthrombin Poeb1828-91-47 17:21:00* Test Item Value Reference Range Interpretation Comments Prothrombin Time (test code = 5902-2) 12.4 11.9-14.5 [facility]leProthromb Time International Ratio 2019-01-19 17:21:00* Test Item Value Reference Range Interpretation Comments Prothromb Time International Ratio (test code = 6301-6) 0.88 Oral Anticoagulant Therapy INR Values:1. Low Intensity Therapy 1.5 - 2.02 . Moderate Intensity Therapy 2.0 - 3.03. High Intensity Therapy(1) 2.5 - 3. 54. High Intensity Therapy(2) 3.0 - 4.05. Panic Value INR > 5.0 [facility]leActivated Partial Thromboplast Time 2019-01-19 17:21:00* Test Item Value Reference Range Interpretation Comments Activated Partial Thromboplast Time (test code = 85088-4) 31.6 23.8-35.5 [facility]leCHEST SINGLE ([facility]ABLE)2019-01-19 16:46:00 [place] [address] Patient Name: EVAN MICHAEL MR #: [id number] : 1945 Age/Sex: 73/F Req #: [id number] Adm Physician: JOSEPH MCBRIDE MD Ordered by: CLAY AVELAR MD, MD Report #: [id number] Location: [facility] Room/Bed: [place] [address] Procedure: [id number] D X/CHEST SINGLE (PORTABLE) Exam Date: 01/19/19 Exam T kenneth: 1630 REPORT STATUS: Signed EXAMINATION: CHEST SINGLE (PORTABLE) INDICATION: Shortness of narendra ath ERMD ORDER [id number] Y COMPARISON: 11/10/2018 FINDINGS: TUBES and [...] nscribed By: LUCINDA on 01/19/191646 COPY TO: CALY AVELAR Blood Ivopqlt6158-36-75 08:42:00* Test Item Value Reference Range Interpretation Comments Blood Culture (test code = 55262190) NO GROWTH AFTER 5 DAYS, FINAL REPORT [facility]leU[facility] Cssao9547-78-00 10:29:00* Test Item Value Reference Range Interpretation Comments Urine Color (test code = 5778-6) YELLOW YELLOW [facility]leU[facility] Ogqlesc8704-87-96 10:29:00* Test Item Value Reference Range Interpretation Comments Urine Clarity (test code = 81303-8) CLEAR CLEAR [facility]leU[facility] Specific Hudzeif3224-78-40 10:29:00 * Test Item Value Reference Range Interpretation Comments Urine Specific [place] (test code = 5811-5) <=1.005 1.010-1.02 5 [facility]leU[facility] bM0312-01-69 10:29:00* Test Item Value Reference Range Interpretation Comments Urine pH (test code = 00489-7) 6.5 5-7 [facility]leU[facility] Leukocyte Fdlnkxbo6320-20-48 10:29:00* Test Item Value Reference Range Interpretation Comments Urine Leukocyte Esterase (test code = 90770-8) NEGATIVE NEGATIV E [facility]leU[facility] Swkdjur3002-51-51 10:29:00* Test Item Value Reference Range Interpretation Comments Urine Nitrite (test code = 72178-9) NEGATIVE NEGATIVE [facility]leU[facility] Llekxcu8063-39-49 10:29:00* Test Item Value Reference Range Interpretation Comments Urine Protein (test code = 88092-6) NEGATIVE NEGATIVE [facility]leU[facility] Glucose (UA)2018-11-10 10:29:00* Test Item Value Reference Range Interpretation Comments Urine Glucose (UA) (test code = 03490-5) NEGATIVE NEGATIVE [facility]leU[facility] Lothxie4674-84-16 10:29:00* Test Item Value Reference Range Interpretation Comments Urine Ketones (test code = 97468-8) NEGATIVE NEGATIVE [facility]leU[facility] Yoafrbjdlbuw4969-80-16 10:29:00* Test Item Value Reference Range Interpretation Comments Urine Urobilinogen (test code = 80587-0) 0.2 0.2-1 [facility]leU[facility] Jvshfdaip9788-57-08 10:29:00* Test Item Value Reference Range Interpretation Comments Urine Bilirubin (test code = 1977-8) NEGATIVE NEGATIVE [facility]leU[facility] Sroeb8021-62-19 10:29:00* Test Item Value Reference Range Interpretation Comments Urine Blood (test code = 66799-3) NEGATIVE NEGATIVE [facility]-10 09:28:00 [facility] [address] [place] [address] Patient Name: EVAN MICHAEL MR #: [id number] : 1945 Age/Sex: 73/F Req #: [id number] Adm Physician: Ordered by: RAVEN DAVIS MD Report #: [id number] Location: ER Room/Bed: Procedure: [id number] DX/ CHEST SINGLE (PORTABLE) Exam Date: 11/10/18 [...] 11/10/18928 COPY TO: RAVEN DAVIS MD Sodium Nquuh8929-82-82 09:25:00* Test Item Value Reference Range Interpretation Comments Sodium Level (test code = 2951-2) 137 136-145 [facility]lePotassium Rituj8553-20-91 09:25:00* Test Item Value Reference Range Interpretation Comments Potassium Level (test code = 2823-3) 3.6 3.5-5.1 [facility]leChloride Mxvjp6454-17-44 09:25:00* Test Item Value Reference Range Interpretation Comments Chloride Level (test code = 2075-0) 96 98-107 L [facility] AzleCarbon Dioxide Zkghe9341-56-94 09:25:00* Test Item Value Reference Range Interpretation Comments Carbon Dioxide Level (test code = 2028-9) 34 22-29 H [facility]leAnion Qbr3735-69-46 09:25:00* Test Item Value Reference Range Interpretation Comments Anion Gap (test code = 90895-8) 10.6 8-16 [facility]leBlood Urea Elbhpshp2311-94-02 09:25:00* Test Item Value Reference Range Interpretation Comments Blood Urea Nitrogen (test code = 3094-0) 12 7-26 [facility]leCreatinine2019-08-15 09:25:00* Test Item Value Reference Range Interpretation Comments Creatinine (test code = 2160-0) 0.68 0.57-1.11 [facility]leBUN/Creatinine Tpmnv2368-85-88 09:25:00* Test Item Value Reference Range Interpretation Comments BUN/Creatinine Ratio (test code = 3097-3) 18 6-25 [facility] AzleEstimat Glomerular Filtration Rate 2018-11-10 09:25:00* Test Item Value Reference Range Interpretation Comments Estimat Glomerular Filtration Rate (test code = 266048480) > 60 >60 Ranges were taken from the National Kidney Disease Education Program and the [facility] literature.Reference ranges:60 or greater: Jtjaww22-03 ( for 3 consecutive months): Chronic kidney disease 15 or less: Kidney failureTexas [facility] AzleGlucose Jmvel6719-34-05 09:25:00* Test Item Value Reference Range Interpretation Comments Glucose Level (test code = YET2424) 99 74-118 [facility]leCalcium Jrtjl5893-90-53 09:25:00* Test Item Value Reference Range Interpretation Comments Calcium Level (test code = 15626-0) 10.3 8.4-10.2 H [facility] AzleTotal Vasaxbuzo7808-16-67 09:25:00* Test Item Value Reference Range Interpretation Comments Total Bilirubin (test code = 1975-2) 0.6 0.2-1.2 [facility] AzleAspartate Amino Transf (AST/SGOT) 2018-11-10 09:25:00* Test Item Value Reference Range Interpretation Comments Aspartate Amino Transf (AST/SGOT) (test code = Aspartate Amino Transf (AST/SGOT)) 15 5-34 [facility] AzleAlanine Aminotransferase (ALT/SGPT) 2018-11-10 09:25:00* Test Item Value Reference Range Interpretation Comments Alanine Aminotransferase (ALT/SGPT) (test code = 1742-6) 17 0-55 [facility] AzleTotal Lhlypkg8191-75-20 09:25:00* Test Item Value Reference Range Interpretation Comments Total Protein (test code = 2885-2) 6.8 6.5-8.1 [facility] AzleAlbumin2019-08-15 09:25:00* Test Item Value Reference Range Interpretation Comments Albumin (test code = 1751-7) 3.7 3.5-5.0 [facility]leGlobulin2019-08-15 09:25:00* Test Item Value Reference Range Interpretation Comments Globulin (test code = 49318-4) 3.1 2.3-3.5 [facility]leAlbumin/Globulin Djdhl1588-18-64 09:25:00 * Test Item Value Reference Range Interpretation Comments Albumin/Globulin Ratio (test code = 1759-0) 1.2 0.8-2.0 [facility] AzleAlkaline Icjapbezohi6189-60-52 09:25:00* Test Item Value Reference Range Interpretation Comments Alkaline Phosphatase (test code = 6768-6) 95 40-150 [facility]leCreatine Bvlpbn3641-17-34 09:25:00* Test Item Value Reference Range Interpretation Comments Creatine Kinase (test code = 2157-6) 24 29-168 L [facility]leCreatine Kinase FI2192-56-35 09:25:00* Test Item Value Reference Range Interpretation Comments Creatine Kinase MB (test code = 44087-2) 2.10 0-5.0 [facility]leTroponin E0055-19-12 09:25:00* Test Item Value Reference Range Interpretation Comments Troponin I (test code = WDZ8950) < 0.001 0-0.300 [facility] AzleProthrombin Clsm9356-14-44 09:15:00* Test Item Value Reference Range Interpretation Comments Prothrombin Time (test code = 5902-2) 12.7 11.9-14.5 [facility] AzleProthromb Time International Ratio 2018-11-10 09:15:00* Test Item Value Reference Range Interpretation Comments Prothromb Time International Ratio (test code = 6301-6) 0.91 Oral Anticoagulant Therapy INR Values:1. Low Intensity Therapy 1.5 - 2.02 . Moderate Intensity Therapy 2.0 - 3.03. High Intensity Therapy(1) 2.5 - 3. 54. High Intensity Therapy(2) 3.0 - 4.05. Panic Value INR > 5.0 [facility] AzleActivated Partial Thromboplast Time 2018-11-10 09:15:00* Test Item Value Reference Range Interpretation Comments Activated Partial Thromboplast Time (test code = 32396-3) 32.3 23.8-35.5 [facility] AzleLactic Acid Lcjnb8732-36-30 09:15:00* Test Item Value Reference Range Interpretation Comments Lactic Acid Level (test code = Lactic Acid Level) 10.8 4.5- 19.8 [facility] AzleLactic Acid Aijjj5365-53-63 09:15:00* Test Item Value Reference Range Interpretation Comments Lactic Acid Level (test code = Lactic Acid Level) 10.8 4.5- 19.8 [facility] AzleWhite Blood Oyyir6627-46-74 09:14:00* Test Item Value Reference Range Interpretation Comments White Blood Count (test code = 6690-2) 9.96 4.8-10.8 [facility] AzleRed Blood Alyda5272-32-04 09:14:00* Test Item Value Reference Range Interpretation Comments Red Blood Count (test code = 789-8) 4.45 3.6-5.1 [facility]leHemoglobin2019-08-15 09:14:00* Test Item Value Reference Range Interpretation Comments Hemoglobin (test code = 23667-8) 13.0 12.0-16.0 [facility]leHematocrit2019-08-15 09:14:00* Test Item Value Reference Range Interpretation Comments Hematocrit (test code = 4544-3) 41.0 34.2-44.1 [facility] AzleMean Corpuscular Yxrpwy9902-33-46 09:14:00* Test Item Value Reference Range Interpretation Comments Mean Corpuscular Volume (test code = 787-2) 92.1 81-99 [facility] AzleMean Corpuscular Yhhgzstufw2977-98-90 09:14:00* Test Item Value Reference Range Interpretation Comments Mean Corpuscular Hemoglobin (test code = 785-6) 29.2 28-32 [facility] AzleMean Corpuscular Hemoglobin Concent 2018-11-10 09:14:00* Test Item Value Reference Range Interpretation Comments Mean Corpuscular Hemoglobin Concent (test code = 786-4) 31.7 31-35 [facility] AzleRed Cell Distribution Hamul3544-52-78 09:14:00* Test Item Value Reference Range Interpretation Comments Red Cell Distribution Width (test code = 54171-8) 13.7 11.7 -14.4 [facility] AzlePlatelet Ypabv9795-28-16 09:14:00* Test Item Value Reference Range Interpretation Comments Platelet Count (test code = 777-3) 323 140-360 [facility]leNeutrophils (%) (Auto)2018-11-10 09:14:00 * Test Item Value Reference Range Interpretation Comments Neutrophils (%) (Auto) (test code = 68261-1) 74.8 38.7-80.0 [facility] AzleLymphocytes (%) (Auto)2018-11-10 09:14:00 * Test Item Value Reference Range Interpretation Comments Lymphocytes (%) (Auto) (test code = 736-9) 13.8 18.0-39.1 L [facility] AzleMonocytes (%) (Auto)2018-11-10 09:14:00* Test Item Value Reference Range Interpretation Comments Monocytes (%) (Auto) (test code = 5905-5) 10.6 4.4-11.3 [facility]leEosinophils (%) (Auto)2018-11-10 09:14:00 * Test Item Value Reference Range Interpretation Comments Eosinophils (%) (Auto) (test code = 713-8) 0.4 0.0-6.0 [facility]leBasophils (%) (Auto)2018-11-10 09:14:00* Test Item Value Reference Range Interpretation Comments Basophils (%) (Auto) (test code = 706-2) 0.2 0.0-1.0 [facility] AzleIM GRANULOCYTES %2018-11-10 09:14:00* Test Item Value Reference Range Interpretation Comments IM GRANULOCYTES % (test code = IM GRANULOCYTES %) 0.2 0.0- 1.0 [facility]leNeutrophils # (Auto)2018-11-10 09:14:00* Test Item Value Reference Range Interpretation Comments Neutrophils # (Auto) (test code = 751-8) 7.5 2.1-6.9 H [facility] AzleLymphocytes # (Auto)2018-11-10 09:14:00* Test Item Value Reference Range Interpretation Comments Lymphocytes # (Auto) (test code = 45858-0) 1.4 1.0-3.2 [facility]leMonocytes # (Auto)2018-11-10 09:14:00* Test Item Value Reference Range Interpretation Comments Monocytes # (Auto) (test code = 742-7) 1.1 0.2-0.8 H [facility]leEosinophils # (Auto)2018-11-10 09:14:00* Test Item Value Reference Range Interpretation Comments Eosinophils # (Auto) (test code = 711-2) 0.0 0.0-0.4 [facility]leBasophils # (Auto)2018-11-10 09:14:00* Test Item Value Reference Range Interpretation Comments Basophils # (Auto) (test code = 704-7) 0.0 0.0-0.1 [facility] AzleAbsolute Immature Granulocyte (auto 2018-11-10 09:14:00* Test Item Value Reference Range Interpretation Comments Absolute Immature Granulocyte (auto (darrell t code = Absolute Immature Granulocyte (auto) 0.02 0-0.1 [facility]leCHEST SINGLE ([facility]ABLE)2018-11-05 00:02:00 [place] [address] Patient Name: EVAN MICHAEL MR #: [id number] : 1945 Age/Sex: 73/F Req #: [id number] Adm Physician: Ordered by: PALMER CARRENO MD Report #: [id number] Location: ER Room/Bed: Procedure: [id number] DX/CH EST SINGLE (PORTABLE) Exam Date: 11/04/18 [...] changes. No focal consolidation. Signed by: Abebe Riuz M.D. on 11/05/2018 12:04 AM Dictated By: ADAMA LUNDBERG MD, MD T ranscribed By: LUCINDA on 11/05/183 COPY TO: PALMER CARRENO MD White Blood Wkeoz3623-99-28 23:32:00* Test Item Value Reference Range Interpretation Comments White Blood Count (test code = 6690-2) 7.31 4.8-10.8 [facility]leRed Blood Tzhzt6714-85-92 23:32:00* Test Item Value Reference Range Interpretation Comments Red Blood Count (test code = 789-8) 4.37 3.6-5.1 [facility] AzleHemoglobin2019-08-09 23:32:00* Test Item Value Reference Range Interpretation Comments Hemoglobin (test code = 84880-1) 12.9 12.0-16.0 [facility] AzleHematocrit2019-08-09 23:32:00* Test Item Value Reference Range Interpretation Comments Hematocrit (test code = 4544-3) 40.4 34.2-44.1 [facility] AzleMean Corpuscular Yduzcc7686-65-01 23:32:00* Test Item Value Reference Range Interpretation Comments Mean Corpuscular Volume (test code = 787-2) 92.4 81-99 [facility]leMean Corpuscular Gnpuxnyskn0070-13-84 23:32:00* Test Item Value Reference Range Interpretation Comments Mean Corpuscular Hemoglobin (test code = 785-6) 29.5 28-32 [facility] Corpuscular Hemoglobin Concent 2018-11-04 23:32:00* Test Item Value Reference Range Interpretation Comments Mean Corpuscular Hemoglobin Concent (test code = 786-4) 31.9 31-35 [facility]leRed Cell Distribution Ytzmg8526-90-76 23:32:00* Test Item Value Reference Range Interpretation Comments Red Cell Distribution Width (test code = 28212-2) 14.0 11.7 -14.4 [facility] AzlePlatelet Geodr9032-11-49 23:32:00* Test Item Value Reference Range Interpretation Comments Platelet Count (test code = 777-3) 254 140-360 [facility]leNeutrophils (%) (Auto)2018-11-04 23:32:00 * Test Item Value Reference Range Interpretation Comments Neutrophils (%) (Auto) (test code = 11173-5) 57.2 38.7-80.0 [facility] AzleLymphocytes (%) (Auto)2018-11-04 23:32:00 * Test Item Value Reference Range Interpretation Comments Lymphocytes (%) (Auto) (test code = 736-9) 24.9 18.0-39.1 [facility]leMonocytes (%) (Auto)2018-11-04 23:32:00* Test Item Value Reference Range Interpretation Comments Monocytes (%) (Auto) (test code = 5905-5) 15.0 4.4-11.3 H [facility]leEosinophils (%) (Auto)2018-11-04 23:32:00 * Test Item Value Reference Range Interpretation Comments Eosinophils (%) (Auto) (test code = 713-8) 1.8 0.0-6.0 [facility]leBasophils (%) (Auto)2018-11-04 23:32:00* Test Item Value Reference Range Interpretation Comments Basophils (%) (Auto) (test code = 706-2) 0.7 0.0-1.0 [facility]leIM GRANULOCYTES %2018-11-04 23:32:00* Test Item Value Reference Range Interpretation Comments IM GRANULOCYTES % (test code = IM GRANULOCYTES %) 0.4 0.0- 1.0 [facility]leNeutrophils # (Auto)2018-11-04 23:32:00* Test Item Value Reference Range Interpretation Comments Neutrophils # (Auto) (test code = 751-8) 4.2 2.1-6.9 [facility]leLymphocytes # (Auto)2018-11-04 23:32:00* Test Item Value Reference Range Interpretation Comments Lymphocytes # (Auto) (test code = 49383-0) 1.8 1.0-3.2 [facility]leMonocytes # (Auto)2018-11-04 23:32:00* Test Item Value Reference Range Interpretation Comments Monocytes # (Auto) (test code = 742-7) 1.1 0.2-0.8 H [facility]leEosinophils # (Auto)2018-11-04 23:32:00* Test Item Value Reference Range Interpretation Comments Eosinophils # (Auto) (test code = 711-2) 0.1 0.0-0.4 [facility]leBasophils # (Auto)2018-11-04 23:32:00* Test Item Value Reference Range Interpretation Comments Basophils # (Auto) (test code = 704-7) 0.1 0.0-0.1 [facility] AzleAbsolute Immature Granulocyte (auto 2018-11-04 23:32:00* Test Item Value Reference Range Interpretation Comments Absolute Immature Granulocyte (auto (darrell t code = Absolute Immature Granulocyte (auto) 0.03 0-0.1 [facility] AzleCreatine Kinase LW9471-78-74 22:38:00* Test Item Value Reference Range Interpretation Comments Creatine Kinase MB (test code = 84333-1) 2.00 0-5.0 [facility] AzleTroponin F7891-70-83 22:38:00* Test Item Value Reference Range Interpretation Comments Troponin I (test code = PDW5731) < 0.001 0-0.300 [facility]leCreatine Kinase BN5047-93-54 22:38:00* Test Item Value Reference Range Interpretation Comments Creatine Kinase MB (test code = 88144-2) 2.00 0-5.0 [facility]leTroponin J0869-36-97 22:38:00* Test Item Value Reference Range Interpretation Comments Troponin I (test code = KUR2369) < 0.001 0-0.300 [facility] AzleB-Type Natriuretic Vpmkwns3770-62-21 22:29:00* Test Item Value Reference Range Interpretation Comments B-Type Natriuretic Peptide (test code = 80124-4) 46.7 0-100 [facility] Suluzwu9889-29-70 22:29:00* Test Item Value Reference Range Interpretation Comments B-Type Natriuretic Peptide (test code = 69579-5) 46.7 0-100 [facility] Pixkmba4979-20-74 22:29:00* Test Item Value Reference Range Interpretation Comments B-Type Natriuretic Peptide (test code = 13868-4) 46.7 0-100 [facility] Fzhal0178-10-58 22:26:00* Test Item Value Reference Range Interpretation Comments Sodium Level (test code = 2951-2) 135 136-145 L [facility]lePotassium Ynjxp3198-11-28 22:26:00* Test Item Value Reference Range Interpretation Comments Potassium Level (test code = 2823-3) 3.8 3.5-5.1 [facility]leChloride Winmc8691-08-19 22:26:00* Test Item Value Reference Range Interpretation Comments Chloride Level (test code = 2075-0) 98 98-107 [facility]leCarbon Dioxide Dsubh6400-99-21 22:26:00* Test Item Value Reference Range Interpretation Comments Carbon Dioxide Level (test code = 2028-9) 27 22-29 [facility]leAnion Gub1694-00-57 22:26:00* Test Item Value Reference Range Interpretation Comments Anion Gap (test code = 07066-4) 13.8 8-16 [facility]leBlood Urea Xjszpbqf4413-17-69 22:26:00* Test Item Value Reference Range Interpretation Comments Blood Urea Nitrogen (test code = 3094-0) 10 7-26 [facility]leCreatinine2019-01-09 22:26:00* Test Item Value Reference Range Interpretation Comments Creatinine (test code = 2160-0) 0.77 0.57-1.11 [facility]leBUN/Creatinine Tprxp4712-66-60 22:26:00* Test Item Value Reference Range Interpretation Comments BUN/Creatinine Ratio (test code = 3097-3) 13 6-25 [facility] AzleEstimat Glomerular Filtration Rate 2018-04-06 22:26:00* Test Item Value Reference Range Interpretation Comments Estimat Glomerular Filtration Rate (test code = 056077402) > 60 >60 Ranges were taken from the National Kidney Disease Education Program and the [facility] Kidney Foundation literature.Reference ranges:60 or greater: Wxseef52-36 ( for 3 consecutive months): Chronic kidney disease 15 or less: Kidney failureTexas [facility] Hospital AzleGlucose Emvib2254-23-99 22:26:00* Test Item Value Reference Range Interpretation Comments Glucose Level (test code = ITR1153) 118 74-118 [facility]leCalcium Plmij5126-31-80 22:26:00* Test Item Value Reference Range Interpretation Comments Calcium Level (test code = 96403-2) 10.5 8.4-10.2 H [facility]leTotal Udiivfxfk0376-53-60 22:26:00* Test Item Value Reference Range Interpretation Comments Total Bilirubin (test code = 1975-2) 0.3 0.2-1.2 [facility] AzleAspartate Amino Transf (AST/SGOT) 2018-04-06 22:26:00* Test Item Value Reference Range Interpretation Comments Aspartate Amino Transf (AST/SGOT) (test code = Aspartate Amino Transf (AST/SGOT)) 20 5-34 [facility]leAlanine Aminotransferase (ALT/SGPT) 2018-04-06 22:26:00* Test Item Value Reference Range Interpretation Comments Alanine Aminotransferase (ALT/SGPT) (test code = 1742-6) 17 0-55 [facility]leTotal Zxbahar6117-06-32 22:26:00* Test Item Value Reference Range Interpretation Comments Total Protein (test code = 2885-2) 6.8 6.5-8.1 [facility] AzleAlbumin2019-01-09 22:26:00* Test Item Value Reference Range Interpretation Comments Albumin (test code = 1751-7) 3.8 3.5-5.0 [facility]leGlobulin2019-01-09 22:26:00* Test Item Value Reference Range Interpretation Comments Globulin (test code = 36168-2) 3.0 2.3-3.5 [facility]leAlbumin/Globulin Nscqw2022-26-07 22:26:00 * Test Item Value Reference Range Interpretation Comments Albumin/Globulin Ratio (test code = 1759-0) 1.3 0.8-2.0 [facility] AzleAlkaline Gevbtozvrmt0572-73-25 22:26:00* Test Item Value Reference Range Interpretation Comments Alkaline Phosphatase (test code = 6768-6) 96 40-150 [facility]leCreatine Grvsqf7613-05-07 22:26:00* Test Item Value Reference Range Interpretation Comments Creatine Kinase (test code = 2157-6) 38 29-168 [facility] Bahgt4860-49-73 22:26:00* Test Item Value Reference Range Interpretation Comments Sodium Level (test code = 2951-2) 135 136-145 L [facility]lePotassium Lrzce4623-09-85 22:26:00* Test Item Value Reference Range Interpretation Comments Potassium Level (test code = 2823-3) 3.8 3.5-5.1 [facility]leChloride Fwvyd3459-82-87 22:26:00* Test Item Value Reference Range Interpretation Comments Chloride Level (test code = 2075-0) 98 98-107 [facility] AzleCarbon Dioxide Kjram8152-93-38 22:26:00* Test Item Value Reference Range Interpretation Comments Carbon Dioxide Level (test code = 2028-9) 27 22-29 [facility] AzleAnion Dcu1832-39-54 22:26:00* Test Item Value Reference Range Interpretation Comments Anion Gap (test code = 53982-4) 13.8 8-16 [facility]leBlood Urea Buvgjomp0357-19-80 22:26:00* Test Item Value Reference Range Interpretation Comments Blood Urea Nitrogen (test code = 3094-0) 10 7-26 [facility] AzleCreatinine2019-01-09 22:26:00* Test Item Value Reference Range Interpretation Comments Creatinine (test code = 2160-0) 0.77 0.57-1.11 [facility]leBUN/Creatinine Ppknr9932-33-19 22:26:00* Test Item Value Reference Range Interpretation Comments BUN/Creatinine Ratio (test code = 3097-3) 13 6-25 [facility] AzleEstimat Glomerular Filtration Rate 2018-04-06 22:26:00* Test Item Value Reference Range Interpretation Comments Estimat Glomerular Filtration Rate (test code = 262510136) > 60 >60 Ranges were taken from the National Kidney Disease Education Program and the [facility] literature.Reference ranges:60 or greater: Cbetbp02-20 ( for 3 consecutive months): Chronic kidney disease 15 or less: Kidney failureTexas Health Harris [facility] Hospital AzleGlucose Dhvde0838-11-08 22:26:00* Test Item Value Reference Range Interpretation Comments Glucose Level (test code = ASA0417) 118 74-118 [facility] AzleCalcium Fymki2582-91-46 22:26:00* Test Item Value Reference Range Interpretation Comments Calcium Level (test code = 39060-6) 10.5 8.4-10.2 H [facility]leTotal Rttrxqqzo3462-64-68 22:26:00* Test Item Value Reference Range Interpretation Comments Total Bilirubin (test code = 1975-2) 0.3 0.2-1.2 [facility] AzleAspartate Amino Transf (AST/SGOT) 2018-04-06 22:26:00* Test Item Value Reference Range Interpretation Comments Aspartate Amino Transf (AST/SGOT) (test code = Aspartate Amino Transf (AST/SGOT)) 20 5-34 [facility]leAlanine Aminotransferase (ALT/SGPT) 2018-04-06 22:26:00* Test Item Value Reference Range Interpretation Comments Alanine Aminotransferase (ALT/SGPT) (test code = 1742-6) 17 0-55 [facility] AzleTotal Zhachpk4357-01-86 22:26:00* Test Item Value Reference Range Interpretation Comments Total Protein (test code = 2885-2) 6.8 6.5-8.1 [facility] AzleAlbumin2019-01-09 22:26:00* Test Item Value Reference Range Interpretation Comments Albumin (test code = 1751-7) 3.8 3.5-5.0 [facility] AzleGlobulin2019-01-09 22:26:00* Test Item Value Reference Range Interpretation Comments Globulin (test code = 29853-9) 3.0 2.3-3.5 [facility] AzleAlbumin/Globulin Kpgal5615-86-95 22:26:00 * Test Item Value Reference Range Interpretation Comments Albumin/Globulin Ratio (test code = 1759-0) 1.3 0.8-2.0 [facility] AzleAlkaline Fvpissibyka1137-60-17 22:26:00* Test Item Value Reference Range Interpretation Comments Alkaline Phosphatase (test code = 6768-6) 96 40-150 [facility] AzleCreatine Rowzbq8085-47-40 22:26:00* Test Item Value Reference Range Interpretation Comments Creatine Kinase (test code = 2157-6) 38 29-168 [facility] AzleWhite Blood Uwavy5415-42-23 22:04:00* Test Item Value Reference Range Interpretation Comments White Blood Count (test code = 6690-2) 15.59 4.8-10.8 H [facility] AzleRed Blood Ocxge8267-93-37 22:04:00* Test Item Value Reference Range Interpretation Comments Red Blood Count (test code = 789-8) 4.66 3.6-5.1 [facility]leHemoglobin2019-01-09 22:04:00* Test Item Value Reference Range Interpretation Comments Hemoglobin (test code = 00517-4) 13.8 12.0-16.0 [facility] AzleHematocrit2019-01-09 22:04:00* Test Item Value Reference Range Interpretation Comments Hematocrit (test code = 4544-3) 43.1 34.2-44.1 [facility] AzleMean Corpuscular Jcrhsh6132-47-31 22:04:00* Test Item Value Reference Range Interpretation Comments Mean Corpuscular Volume (test code = 787-2) 92.5 81-99 [facility] AzleMean Corpuscular Skfxkeauon4137-73-62 22:04:00* Test Item Value Reference Range Interpretation Comments Mean Corpuscular Hemoglobin (test code = 785-6) 29.6 28-32 [facility] AzleMean Corpuscular Hemoglobin Concent 2018-04-06 22:04:00* Test Item Value Reference Range Interpretation Comments Mean Corpuscular Hemoglobin Concent (test code = 786-4) 32.0 31-35 [facility] AzleRed Cell Distribution Cchdp0461-17-09 22:04:00* Test Item Value Reference Range Interpretation Comments Red Cell Distribution Width (test code = 66533-9) 12.8 11.7 -14.4 [facility] AzlePlatelet Yrrvl4205-77-09 22:04:00* Test Item Value Reference Range Interpretation Comments Platelet Count (test code = 777-3) 318 140-360 [facility] AzleNeutrophils (%) (Auto)2018-04-06 22:04:00 * Test Item Value Reference Range Interpretation Comments Neutrophils (%) (Auto) (test code = 57013-1) 81.6 38.7-80.0 H [facility] AzleLymphocytes (%) (Auto)2018-04-06 22:04:00 * Test Item Value Reference Range Interpretation Comments Lymphocytes (%) (Auto) (test code = 736-9) 10.0 18.0-39.1 L [facility] AzleMonocytes (%) (Auto)2018-04-06 22:04:00* Test Item Value Reference Range Interpretation Comments Monocytes (%) (Auto) (test code = 5905-5) 7.1 4.4-11.3 [facility]leEosinophils (%) (Auto)2018-04-06 22:04:00 * Test Item Value Reference Range Interpretation Comments Eosinophils (%) (Auto) (test code = 713-8) 0.6 0.0-6.0 [facility] AzleBasophils (%) (Auto)2018-04-06 22:04:00* Test Item Value Reference Range Interpretation Comments Basophils (%) (Auto) (test code = 706-2) 0.4 0.0-1.0 [facility] AzleIM GRANULOCYTES %2018-04-06 22:04:00* Test Item Value Reference Range Interpretation Comments IM GRANULOCYTES % (test code = IM GRANULOCYTES %) 0.3 0.0- 1.0 [facility] AzleNeutrophils # (Auto)2018-04-06 22:04:00* Test Item Value Reference Range Interpretation Comments Neutrophils # (Auto) (test code = 751-8) 12.7 2.1-6.9 H [facility] AzleLymphocytes # (Auto)2018-04-06 22:04:00* Test Item Value Reference Range Interpretation Comments Lymphocytes # (Auto) (test code = 06644-2) 1.6 1.0-3.2 [facility]leMonocytes # (Auto)2018-04-06 22:04:00* Test Item Value Reference Range Interpretation Comments Monocytes # (Auto) (test code = 742-7) 1.1 0.2-0.8 H [facility]leEosinophils # (Auto)2018-04-06 22:04:00* Test Item Value Reference Range Interpretation Comments Eosinophils # (Auto) (test code = 711-2) 0.1 0.0-0.4 [facility]leBasophils # (Auto)2018-04-06 22:04:00* Test Item Value Reference Range Interpretation Comments Basophils # (Auto) (test code = 704-7) 0.1 0.0-0.1 [facility] AzleAbsolute Immature Granulocyte (auto 2018-04-06 22:04:00* Test Item Value Reference Range Interpretation Comments Absolute Immature Granulocyte (auto (darrell t code = Absolute Immature Granulocyte (auto) 0.04 0-0.1 [facility]leCHEST SINGLE (PORTABLE)2018-04-06 21:56:00 [facility] [address] [address] Patient Name: EVAN MICHAEL MR #: [id number] : 1945 Age/Sex: 73/F Req #: [id number] Adm Physician: Ordered by: MARANDA SEQUEIRA MD Report #: [id number] Location: ER Room/Bed: Procedure: [id number] DX/CHEST SINGLE (PORTABLE) Exam Date: 04/06/18 Exam [...] TO: LOU SEQUEIRA MD KNEE LEFT 1-2 TYADT0856-54-46 23:26:00 [address] [place] [address] Patient Name: EVAN MICHAEL MR #: [id number] : 1945 Age/Sex: 72/F Req #: [id number] Adm Physician: Ordered by: PALMER CARRENO MD Report #: [id number] Location: ER Room/Bed: Procedure: [id number] DX/KN EE LEFT 1-2 VIEWS Exam Date: 01/30/18 Exam Time: 222 7 REPORT STATUS: Signed EXAM: EE LEFT 1-2 VIEWS, AP and lateral [...] HIP LEFT 2-3 VW (+/- PELVIS)2018-01-30 23:18:00 [place] [address] Patient Name: EVAN MICHAEL MR #: [id number] : 1945 Age/Sex: 72/F Req #: [id number] Adm Physician: Ordered by: PALMER CARRENO MD Report #: [id number] Location: ER Room/Bed: Procedure: [id number] DX/HI P LEFT 2-3 VW (+/- PELVIS) [...] COPY TO: PALMER CARRENO MD SHOULDER RIGHT NPYRGATM1424-29-83 10:29:00 [address] [place] [address] Patient Name: EVAN MICHAEL MR #: [id number] : 1945 Age/Sex: 72/F Req #: [id number] [facility] Physician: Ordered by: JOSEPH MCBRIDE MD Report #: [id number] Location: [facility] Room/Bed: Procedure: [id number] DX/SHOULDER RIGHT COMPLETE Exam Date: 12/15/17 Exam Time: 999 REPORT STATUS: Signed PROCEDURE: X-RAY RIGHT SHOULDER, [...] TO: JOSEPH MCBRIDE MD CT CHEST W [place] [address] Patient Name: EVAN MICHAEL MR #: [id number] : 1945 Age/Sex: 71/F Req #: [id number] Adm Physician: Ordered by: AMMON ALMENDAREZ MD Report #: [id number] Location: ER Room/Bed: Procedure: [id number] CT/CT CHEST W Exam Date: 02/02/17 Exam Time: 5 REPORT STATUS: Signed EXAM: CT Chest WITH [...] 10/12 COPY TO: AMMON ALMENDAREZ MD CHEST [facility] (PORTABLE) [address] [address] Patient Name: EVAN MICHAEL MR #: [id number] : 11/1944 Age/Sex: 71/F Req #: [id number] Adm Physician: Ordered by: BENJIE MCKEON Report #: [id number] Location: Room/Be d: Procedure: [id number] DX/CHEST SINGLE (PORTABLE) E xam Date: 02/02/17 [...] TO: BENJIE MCKEON MRI SPINE THORACIC WO [place] [address] Patient Name: EVAN MICHAEL MR #: [id number] : 1945 Age/Sex: 71/F Req #: [id number] Adm Physician: Ordered by: JOSEPH MCBRIDE MD Report #: [id number] Location: MRI Room/Bed: Procedure: [id number] MRI/MRI SPINE THORACIC WO Exam Date: 12/10/16 [...] dings were discussed with the attending physician's APPRAISER AUDITOR Yaritza Jaimes on 017 at 3:00 PM Signed by: Dr. Ankit Hernandez M.D. on 12/11/2016 3:11 PM Dictated By: ANKIT HERNANDEZ MD 1511 COPY TO: JOSEPH MCBRIDE MD
[2019-09-02] MEDS: METRONIDAZOLE 500MG/NS 100ML 100 ML IV SCH ×3 (10:01→22:32)
[2019-09-02] MEDS: SODIUM CHLORIDE 0.9% 1000ML 1,000 ML IV SCH ×2 (10:01→22:32)
[2019-09-02] MEDS ORDERED: LEVOFLOXACIN 500MG/D5W 100ML 100 ML IV SCH (11:00)
--- NOTE | 2019-09-02 12:05 | NUR ---
pt arrived to room 284 via wheelchair. pt ambulating to bathroom, no signs of distress, on 2L NC. in stable condition.
[2019-09-02] MEDS: ALBUTEROL/IPRATROPIUM 3 ML NEB NEB PRN ×4 (13:30→23:08)
[2019-09-02] MEDS ORDERED: ACETAMINOPHEN 325 MG TAB PO PRN (13:30)
[2019-09-02 14:21] LABS: CREATINE KINASE 29 IU/L (29-168)
[2019-09-02] MEDS ORDERED: [UNRECOGNIZED DRUG - OTHER] OP PRN (16:30)
[2019-09-02] MEDS ORDERED: DORZOLAMIDE/TIMOLOL (OPTH SOL) 10 ML DRPETTE OP SCH (17:00)
[2019-09-02] MEDS ORDERED: HYDROCODONE PO PRN (18:15)
[2019-09-02] MEDS ORDERED: HOMATROPINE PO PRN (18:15)
[2019-09-02] MEDS ORDERED: HYDROCODONE/CHLORPHENIRAMINE 5 ML LIQCR PO PRN (18:15)
[2019-09-02] MEDS: BUDESONIDE 0.5MG/2 ML NEB INH SCH (19:12)
--- NOTE | 2019-09-02 23:16 | History and Physical ---
CHIEF COMPLAINT: Shortness of breath and also abdominal pain. HISTORY OF PRESENTING ILLNESS: Ms. Maura Perez with a history of COPD, gastroesophageal reflux, hypothyroidism, and history of chronic constipation, was in usual state of health until the patient developed some abdominal pain, shortness of breath. In the emergency room, CT scan showed nonspecific colitis. The patient is admitted to the hospital for COPD exacerbation and also for some nonspecific colitis. PAST MEDICAL HISTORY: History of thyrotoxicosis, history of essential hypertension, history of COPD, history of reflux esophagitis, history of nicotine dependence, history of constipation, history of osteoarthritis, history of chronic low back pain and history of restless legs syndrome. The patient also has history of ischemic colitis in the past. MEDICATIONS: She takes at home are: 1. Amlodipine 10 mg. 2. Albuterol sulfate as needed. 3. The patient is on Carafate. 4. Propylthiouracil 50 mg twice a day. 5. Trazodone 50 mg at nighttime. 6. Hycodan cough syrup every 6 hours as needed. 7. Tramadol 50 mg q.6 hours as needed. 8. Polyethylene glycol 2 scoops a day. PAST SURGICAL HISTORY: Left toe surgery in 2014. FAMILY HISTORY: Father with hypertension, heart disease. Mother was hypertension, heart disease. Siblings with hypertension, heart disease also otherwise. SOCIAL HISTORY: No EtOH. No IV drug abuse. History of smoking. The patient continues to smoke and also at this time. ALLERGIES: NO KNOWN DRUG ALLERGIES. REVIEW OF SYSTEMS: Negative for chest pain. Positive for shortness of breath. Positive for diarrhea. No constipation. No rectal bleeding. No hematochezia. No hematemesis either. PHYSICAL EXAMINATION: GENERAL: The patient is alert and oriented x3. VITAL SIGNS: Afebrile. Blood pressure is 120s/80s with heart rate is 90. HEENT: Normocephalic, atraumatic. The patient is cachectic. CVS: S1 and S2 normal. Regular rate and rhythm, but distant. LUNGS: Decreased air entry. Positive inspiratory wheezes. EXTREMITIES: No clubbing, no cyanosis, no edema. ABDOMEN: Tender diffusely. No rebound. No guarding. IMAGING DATA: Chest x-ray shows emphysematous lungs. CT of the abdomen shows nonspecific enteritis. LABORATORY VALUES: White count within normal limits. CBC essentially is normal. CMP normal except for elevated CO2. The patient's CT scan again shows enteritis. ASSESSMENT: Ms. Maura Perez is a 74-year-old lady with chronic obstructive pulmonary disease exacerbation, continue on antibiotics. The patient is on albuterol and Atrovent treatment q.6 hours. For colitis, the patient is started on Levaquin and Flagyl, which is given every day for the Levaquin and Flagyl every 6 hours. The patient also continues to get albuterol and Atrovent treatment. We will restart her home medications. We will continue to monitor the patient. Possible discharge in 1 to 2 days. We will keep her as an outpatient. FINAL DIAGNOSES: 1. Chronic obstructive pulmonary disease exacerbation. 2. Enteritis. 3. History of hypertension. 4. History of hyperlipidemia. 5. Hypercapnia. 6. Cachexia. PLAN: Continue with current medication. Reassess tomorrow. Further recommendation per clinical course and possible discharge in 1 to 2 days. MD ALEX Varghese/JENNA /[phone]
[2019-09-03] MEDS: ALBUTEROL/IPRATROPIUM 3 ML NEB NEB PRN ×2 (03:00→06:30)
[2019-09-03] MEDS: METRONIDAZOLE 500MG/NS 100ML 100 ML IV SCH (04:50)
[2019-09-03 05:32] VITALS: BP 111/66
[2019-09-03] MEDS: BUDESONIDE 0.5MG/2 ML NEB INH SCH (06:25)
[2019-09-03 06:26] LABS: BASOPHILS % 0.1 % (0.0-1.0); HEMATOCRIT 34.2 % (34.2-44.1); HEMOGLOBIN 10.5 g/dL (12.0-16.0); LYMPHOCYTES % 10.6 % (18.0-39.1); MEAN CORPUSCULAR HEMOGLOBIN 30.4 pg (28-32); MEAN CORPUSCULAR HGB CONC 30.7 g/dL (31-35); MEAN CORPUSCULAR VOLUME 99.1 fL (81-99); MONOCYTES # (AUTO) 0.9 (0.2-0.8); MONOCYTES % 9.9 % (4.4-11.3); NEUTROPHILS # (AUTO) 7.1 (2.1-6.9); NEUTROPHILS % 78.8 % (38.7-80.0); PLATELET COUNT 246 x10e3/uL (140-360); RED BLOOD COUNT 3.45 x10e6/uL (3.6-5.1); RED CELL DISTRIBUTION WIDTH 13.7 % (11.7-14.4)
--- NOTE | 2019-09-03 06:50 | NUR ---
received change of shift report from PM nurse. pt awake, alert, oriented x3, ambulating around room, no signs of distress. will continue to monitor.
[2019-09-03 07:12] LABS: CREATINE KINASE 58 IU/L (29-168)
[2019-09-03] MEDS ORDERED: FLAGYL250 MG PO (07:16)
[2019-09-03] MEDS ORDERED: CIPRO500 MG PO (07:16)
--- NOTE | 2019-09-03 07:19 | NUR ---
pt standing at bedside, states she is "ready to go now." refusing any AM meds at this time. will discharge pt home per MD orders.
[2019-09-03 07:30] VITALS: BP 111/66
[2019-09-03 07:39] LABS: ALANINE AMINOTRANSFERASE 23 IU/L (0-55); ALBUMIN 3.2 g/dL (3.5-5.0); ALBUMIN/GLOBULIN RATIO 1.3 (0.8-2.0); ALKALINE PHOSPHATASE 78 IU/L (40-150); ANION GAP 11.4 mmol/L (8-16); BLOOD UREA NITROGEN 8 mg/dL (7-26); BUN/CREATININE RATIO 14 (6-25); CALCIUM 9.6 mg/dL (8.4-10.2); CARBON DIOXIDE 26 mmol/L (22-29); CHLORIDE 107 mmol/L (98-107); CREATININE, SERUM 0.58 mg/dL (0.57-1.11); EST GLOMERULAR FILTRATION RATE > 60 ML/MIN (60-); GLUCOSE 88 mg/dL (74-118); POTASSIUM 3.4 mmol/L (3.5-5.1); SODIUM 141 mmol/L (136-145)
[2019-09-03] MEDS ORDERED: AMLODIPINE BESYLATE 10 MG TAB PO SCH (09:00)
[2019-09-03] MEDS ORDERED: BISOPROLOL FUMARATE 10 MG TAB PO SCH (09:00)
[2019-09-03] MEDS ORDERED: PANTOPRAZOLE SOD 40 MG TABEC PO SCH (09:00)
[2019-09-03] MEDS ORDERED: PROPYLTHIOURACIL 50 MG TAB PO SCH (09:00)
--- NOTE | 2019-09-03 09:51 | Progress Note ---
DATE: SUBJECTIVE: Ms. Maura Perez, who was admitted yesterday for acute exacerbation of COPD and enterocolitis. The patient is feeling much better, wants to go home today. No complaints. No chest pain. No shortness of breath. No diarrhea. Shortness of breath is at baseline. She is O2-dependent. Currently on albuterol/Atrovent treatment, Flagyl, and Levaquin. OBJECTIVE: VITAL SIGNS: Temperature is 98.4, pulse of 78, respirations of 18, blood pressure is 111/66, pulse oximetry 100% on 3 L of oxygen. HEENT: Normocephalic and atraumatic. The patient is cachectic. CVS: S1 and S2 normal. Distant regular rate and rhythm. LUNGS: Decreased air entry into all lung fitzpatrick. MUSCULOSKELETAL: The patient is kyphotic. ABDOMEN: Nontender and nondistended. EXTREMITIES: No clubbing. No cyanosis. No edema. LABORATORY VALUES: White count is 8.95, hemoglobin of 10.5, hematocrit of 34.2, no left shift present. Chemistries; sodium 144, potassium 3.9, calcium of 10.4, and EGFR about 60. Troponins were trended to be negative. Amylase and lipase are normal. Serology; coronavirus is pending. Laboratory results, as mentioned yesterday: 1. The patient has nonspecific enteritis. 2. 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 Findings suggest clinical correlation and also CT of the abdomen and pelvis, distended bladder. The patient also has emphysematous lung with calcified granuloma 6 mm. Chest x-ray showed emphysematous lung. ASSESSMENT: 1. Ms. Maura Perez is a 74-year-old female with COPD exacerbation, currently on antibiotics and albuterol/Atrovent treatment. She will be continued and can be discharged home with the same. 2. Enteritis. We will discharge the patient on Cipro and Flagyl. 3. Abdominal aortic aneurysm followed with an ultrasound, questionable penetration of an ulcer in the aorta. We will continue monitoring that and repeat a CT in 3 to 6 months, which has been conveyed to the patient and the patient is to come back to clinic in 3 to 6 months to review and we do the CT. Further recommendations per clinical course. The patient is feeling better, can be discharged on O2, and follow up in the clinic about 2 weeks. MD ALEX Varghese/JENNA /[id number]
== END 2019-09-03 07:56 | disposition home or self-care (01) ==
LOC: ER 05:19 → ERHOLD 09:05 → MED/SURG3 12:06
PROVIDERS: ADMIT Family Medicine; ATTEND Family Medicine
DX: J44.1 Chronic obstructive pulmonary disease with (acute) exacerbation (principal); K52.9 Noninfective gastroenteritis and colitis, unspecified; R64 Cachexia; Z68.1 Body mass index [BMI] 19.9 or less, adult; Z99.81 Dependence on supplemental oxygen; F17.200 Nicotine dependence, unspecified, uncomplicated; I71.4 Abdominal aortic aneurysm, without rupture
CPT/HCPCS: 36415 ×2; 71045; 74177; 80053 ×2; 81001; 82150; 82550 ×2; 82553 ×2; 83690; 84484 ×2; 85025 ×2; 87635; 94640 ×2; 96361; 99284; G0378 ×2; J1956; J2930; J7030; Q9967

== ENCOUNTER 2019-10-13 17:33 | Emergency (ER) | payer MEDICARE, BC ==
[~2019-10-13] VITALS: Ht 154.9 cm; Wt 42.6 kg
[~2019-10-13 17:33] MED LIST changes: +CIPRO500 MG PO; +FLAGYL250 MG PO
--- NOTE | 2019-10-13 18:19 | Emergency Department Note ---
History of Present Illnes History of Present Illness Chief Complaint: Respiratory History of Present Illness This is a 74 year old female from home via EMS with complaints of shortness of breath, pain upon taking a deep breath and feeling like she is "fighting to get her breath". Patient with a history of COPD and on 2L of home oxygen. Patient is not is any acute respiratory distress in triage with an oxygen saturation of 98% on 2L via NC. Patient also complains of pain in her back that is chronic in nature.. Historian: Patient Arrival Mode: [facility] EMS Treatment PLANT NURSERY WORKER: IV, See EMS Report Onset (how long ago): day(s) (3) Location: chest Quality: sob, hurst to breath Radiation: Reports non-radiation Severity: moderate Onset quality: gradual Duration (how long): day(s) (3) Timing of current episode: constant Progression: unchanged Chronicity: new Context: Denies recent illness, Denies recent surgery Relieving factors: none Exacerbating factors: movement Associated symptoms: Reports denies other symptoms Treatments prior to arrival: other (solu medrol 125 mf iv , abluterol nebs by [facility] [employer]) Past Medical/Family History Physician Review I have reviewed the patient's past medical and family history. Any updates have been documented here. Past Medical History Recent Fever: No Clinical Suspicion of Infectio: No New/Unexplained Change in Ment: No Past Medical History: Hypertension, COPD Other Medical History: OSTEOARTHRITIS MACULAR DEGENERATION RHEUMATOID ARTHRITIS +SMOKER Past Surgical History: Cholecysctectomy, Hysterectomy, T&A Other Surgery: NECK SURGERY Social History Smoking Cessation: Current every day smoker Alcohol Use: None Any Illegal Drug Use: No Family History Family history of heart diseas: No Other family history htn Other Last Tetanus: UTD Review of Systems Review of Systems Constitutional: Reports no symptoms EENTM: Reports no symptoms Cardiovascular: Reports no symptoms Respiratory: Reports as per HPI Gastrointestinal: Reports no symptoms Genitourinary: Reports no symptoms Musculoskeletal: Reports no symptoms Integumentary: Reports no symptoms Neurological: Reports no symptoms Psychological: Reports no symptoms Endocrine: Reports no symptoms Hematological/Lymphatic: Reports no symptoms Physical Exam Related Data Allergies: Uncoded Allergies: PLASTIC TAPE (Allergy, Mild, 09/18/16) Triage Vital Signs Vital Signs Date Time Temp Pulse Resp B/P (MAP) Pulse Ox O2 Delivery O2 Flow Rate FiO2 7/17/20 17:45 98.3 92 25 108/90 98 Nasal Cannula 2.0 Physical Exam CONSTITUTIONAL Constitutional: Present well-developed, Present well-nourished, Present other (no distress noted) HENT HENT: Present normocephalic, Present atraumatic, Present oropharynx clear/moist, Present nose normal HENT L/R: Present left ext ear normal, Present right ext ear normal EYES Eyes: Reports PERRL, Reports conjunctivae normal NECK Neck: Present ROM normal PULMONARY Pulmonary: Present effort normal, Present other (mld wheezing at bases, ) CARDIOVASCULAR Cardiovascular: Present regular rhythm, Present heart sounds normal, Present capillary refill normal, Present normal rate GASTROINTESTINAL Abdominal: Present soft, Present nontender, Present bowel sounds normal GENITOURINARY Genitourinary: Present exam deferred SKIN Skin: Present warm, Present dry MUSCULOSKELETAL Musculoskeletal: Present ROM normal NEUROLOGICAL Neurological: Present alert, Present oriented x 3, Present no gross motor or sensory deficits PSYCHOLOGICAL Psychological: Present mood/affect normal, Present judgement normal Results Laboratory Laboratory Laboratory Tests Test 10/13/19 17:40 White Blood Count 14.32 x10e3/uL (4.8-10.8) Red Blood Count 4.15 x10e6/uL (3.6-5.1) Hemoglobin 12.3 g/dL (12.0-16.0) Hematocrit 40.7 % (34.2-44.1) Mean Corpuscular Volume 98.1 fL (81-99) Mean Corpuscular Hemoglobin 29.6 pg (28-32) Mean Corpuscular Hemoglobin Concent 30.2 g/dL (31-35) Red Cell Distribution Width 13.2 % (11.7-14.4) Platelet Count 268 x10e3/uL (140-360) Neutrophils (%) (Auto) 76.0 % (38.7-80.0) Lymphocytes (%) (Auto) 14.6 % (18.0-39.1) Monocytes (%) (Auto) 7.7 % (4.4-11.3) Eosinophils (%) (Auto) 0.7 % (0.0-6.0) Basophils (%) (Auto) 0.2 % (0.0-1.0) Neutrophils # (Auto) 10.9 (2.1-6.9) Lymphocytes # (Auto) 2.1 (1.0-3.2) Monocytes # (Auto) 1.1 (0.2-0.8) Eosinophils # (Auto) 0.1 (0.0-0.4) Basophils # (Auto) 0.0 (0.0-0.1) Absolute Immature Granulocyte (auto 0.11 x10e3/uL (0-0.1) Sodium Level 140 mmol/L (136-145) Potassium Level 3.7 mmol/L (3.5-5.1) Chloride Level 98 mmol/L (98-107) Carbon Dioxide Level 34 mmol/L (22-29) Anion Gap 11.7 mmol/L (8-16) Blood Urea Nitrogen 16 mg/dL (7-26) Creatinine 0.62 mg/dL (0.57-1.11) Estimat Glomerular Filtration Rate > 60 ML/MIN (60-) BUN/Creatinine Ratio 26 (6-25) Glucose Level 115 mg/dL (74-118) Calcium Level 10.4 mg/dL (8.4-10.2) Total Bilirubin 0.4 mg/dL (0.2-1.2) Aspartate Amino Transf (AST/SGOT) 17 IU/L (5-34) Alanine Aminotransferase (ALT/SGPT) 26 IU/L (0-55) Alkaline Phosphatase 67 IU/L (40-150) Creatine Kinase 19 IU/L (29-168) Creatine Kinase MB 1.90 ng/mL (0-5.0) Troponin I < 0.001 ng/mL (0-0.300) Total Protein 7.3 g/dL (6.5-8.1) Albumin 4.1 g/dL (3.5-5.0) Globulin 3.2 g/dL (2.3-3.5) Albumin/Globulin Ratio 1.3 (0.8-2.0) Lab results reviewed: Yes Imaging Imaging results reviewed: Yes Impressions HYPER INFLATED LUNGS, NO CHANGE FROM PREVIOUS CXR, NO INFILTRATES, NO EDEMA Procedures 12 Lead ECG Interpretation ECG Interpretation : ECG: ECG 1 Chief Sales Officer: Interpreted by ED physician Date: Oct 13, 2019 Time: 18:00 Rhythm: sinus rhythm Rate: normal BPM: 91 QRS axis: normal ST segments normal: Yes T waves normal: Yes Other findings: no other findings Clinical Impression: normal ECG Assessment & Plan Medical Decision Making MDM pt with h/o copd with sob and pain with inspiration, pt already states feels much better after receiving nebs and solu medrol from [facility]. cbc, cmp, cxr, ekg, cardiac enzymes ordered to eval for myocardial infarction, pneumonia, intrathoracic abnormality, electrolyte abnormality. PT WITH COPD EXACERBATION DISCHARGED HOME WITH PRESCRIPTIONS FOR Z SILVINO DIRECTED #1, MEDROL DOSE PACK DIRECTED #1 Reassessment Reassessment time: 19:54 Reassessment PT STATES SHE STILL FEELS GOOD AND AT HER BASELINE, OXYGEN SATURATION 98% ON 2 LITERS O2 VIA NC. PT IS ON HOME 02 AT 2 LPM. WHEEZING IS MINIMAL AT BASES ON EXPIRATION ONLY AT THIS TIME. PT IS NOT IN ANY RESPIRATORY DISTRESS Assessment & Plan Final Impression: (1) COPD (chronic obstructive pulmonary disease) with emphysema (2) COPD with acute exacerbation Depart Disposition: HOME, SELF-CARE Last Vital Signs Date Time Temp Pulse Resp B/P (MAP) Pulse Ox O2 Delivery O2 Flow Rate FiO2 10/13/19 17:46 91 25 131/70 98 10/13/19 17:45 98.3 Nasal Cannula 2.0 Home Meds Reported Medications Ciprofloxacin Hcl (CIPRO) 500 Mg Tablet, 500 MG PO Q12H, #30 TAB 09/03/19 Metronidazole (FLAGYL) 250 Mg Tablet, 500 MG PO Q6H 09/03/19 Pantoprazole Sodium* (PROTONIX) 40 Mg Tablet.dr, 40 MG PO DAILY, TAB 04/11/19 Polyethylene Glycol 3350 (MIRALAX) 17 Gm Powd.pack, 1 DOSE PO DAILY 01/19/19 Hydrocodone Bit/Homatrop Me-Br (Hydrocodone-Homatropine Soln) 473 Ml Syrup, 5 ML PO Q6H PRN for COUGH 01/19/19 Budesonide (BUDESONIDE) 0.5 Mg/2 Ml Ampul.neb, 1 INH INH BID 01/19/19 Albuterol Sulf* (PROAIR HFA INHALER*) 8.5 Gm Inh, 2 INH INH PRN 01/19/19 Propylthiouracil (PROPYLTHIOURACIL) 50 Mg Tablet, 50 MG PO DAILY 09/16/16 Albuterol Sulfate (ALBUTEROL SULFATE) 1.25 Mg/3 Ml Vial.neb, NEB QID 12/27/15 Bisoprolol Fumarate (ZEBETA) 10 Mg Tab, 5 MG PO DAILY, #30 TAB 01/21/15 Tramadol Hcl* (ULTRAM 50MG*) 50 Mg Tab, 50 MG PO Q4HR PRN for MODERATE PAIN (4- 6), TAB 09/26/13 Timolol Maleate/Dorzolam Hcl (Dorzolamide-Timolol Eye Drops) 10 Ml Drops, 1 DROP OU BID 10/27/11 Amlodipine Besylate (Norvasc) 10 Mg Tablet, 10 MG PO DAILY 10/27/11 Calc/D3/Mag/Zn/University Controller/[place] (CALCIUM 600 MG + VIT D TAB) 1 Each Tablet, 1 TAB PO BID 10/27/11 Multivitamin (MULTIVITAMINS) 1 Each Tab.chew, 1 TAB PO DAILY 10/27/11 MARANDA SEQUEIRA MD Oct 13, 2019 18:19
[2019-10-13] MEDS ORDERED: ALBUTEROL/IPRATROPIUM 3 ML NEB NEB ONE (18:30)
[2019-10-13] MEDS ORDERED: ASPIRIN 81 MG CHEW TAB PO ONE (18:30)
[2019-10-13 18:35] LABS: BASOPHILS % 0.2 % (0.0-1.0); EOSINOPHILS # (AUTO) 0.1 (0.0-0.4); EOSINOPHILS % 0.7 % (0.0-6.0); HEMATOCRIT 40.7 % (34.2-44.1); HEMOGLOBIN 12.3 g/dL (12.0-16.0); LYMPHOCYTES # (AUTO) 2.1 (1.0-3.2); LYMPHOCYTES % 14.6 % (18.0-39.1); MEAN CORPUSCULAR HEMOGLOBIN 29.6 pg (28-32); MEAN CORPUSCULAR HGB CONC 30.2 g/dL (31-35); MEAN CORPUSCULAR VOLUME 98.1 fL (81-99); MONOCYTES # (AUTO) 1.1 (0.2-0.8); MONOCYTES % 7.7 % (4.4-11.3); NEUTROPHILS # (AUTO) 10.9 (2.1-6.9); PLATELET COUNT 268 x10e3/uL (140-360); RED BLOOD COUNT 4.15 x10e6/uL (3.6-5.1); RED CELL DISTRIBUTION WIDTH 13.2 % (11.7-14.4)
[2019-10-13 18:46] LABS: ALANINE AMINOTRANSFERASE 26 IU/L (0-55); ALBUMIN 4.1 g/dL (3.5-5.0); ALBUMIN/GLOBULIN RATIO 1.3 (0.8-2.0); ALKALINE PHOSPHATASE 67 IU/L (40-150); ANION GAP 11.7 mmol/L (8-16); BLOOD UREA NITROGEN 16 mg/dL (7-26); BUN/CREATININE RATIO 26 (6-25); CALCIUM 10.4 mg/dL (8.4-10.2); CARBON DIOXIDE 34 mmol/L (22-29); CHLORIDE 98 mmol/L (98-107); CREATINE KINASE 19 IU/L (29-168); CREATININE, SERUM 0.62 mg/dL (0.57-1.11); EST GLOMERULAR FILTRATION RATE > 60 ML/MIN (60-); GLUCOSE 115 mg/dL (74-118); POTASSIUM 3.7 mmol/L (3.5-5.1); SODIUM 140 mmol/L (136-145)
[2019-10-13] MEDS ORDERED: ACETAMINOPHEN 325 MG TAB PO ONE (19:15)
[2019-10-13] MEDS ORDERED: ACETAMINOPHEN 325 MG TAB ONE (19:23)
[2019-10-13 19:53] VITALS: BP 146/85
--- NOTE | 2019-10-13 19:56 | Diagnostic Imaging Report ---
EXAMINATION: CHEST SINGLE (PORTABLE) INDICATION: COMPARISON: Multiple prior radiographs including most recent on 09/02/2019 FINDINGS: The patient is slightly more rotated when compared to most recent prior examination. TUBES and LINES: None. LUNGS: The lungs are hyperinflated with emphysematous changes. There is biapical pleural scarring, left basilar opacity which represents atelectasis and/or scarring. No focal consolidation. Overall findings are unchanged when compared to prior examinations. PLEURA: No pleural effusion or pneumothorax. HEART AND MEDIASTINUM: The cardiomediastinal silhouette is within normal limits and unchanged. There is atherosclerotic calcification of the thoracic aortic arch. BONES AND SOFT TISSUES: No acute osseous lesion. Soft tissues are unremarkable. Stable vertebral augmentation changes. UPPER ABDOMEN: No free air under the diaphragm. IMPRESSION: Emphysematous changes without focal consolidation, pleural effusion or pneumothorax. No interval change in radiographic appearance of the lungs. Signed by: Roxana Lewis MD on 10/13/2019 7:53 PM
== END 2019-10-13 21:14 | disposition home or self-care (01) ==
LOC: ER 18:25
DX: J44.1 Chronic obstructive pulmonary disease with (acute) exacerbation (principal); R06.02 Shortness of breath; Z99.81 Dependence on supplemental oxygen; I10 Essential (primary) hypertension; M06.9 Rheumatoid arthritis, unspecified; H35.30 Unspecified macular degeneration
CPT/HCPCS: 36415; 71045; 80053; 82550; 82553; 84484; 85025; 93005; 94640; 99284

== ENCOUNTER 2020-02-18 07:58 | Inpatient (IN) | payer MEDICARE, BC ==
[~2020-02-18] VITALS: Ht 154.9 cm; Wt 42.0 kg
[2020-02-18] MEDS ORDERED: NALOXONE HCL INJ 0.4 MG/ML AMP ONE (08:21)
[2020-02-18 08:42] LABS: BASOPHILS # (AUTO) 0.1 (0.0-0.1); BASOPHILS % 0.5 % (0.0-1.0); EOSINOPHILS # (AUTO) 0.1 (0.0-0.4); EOSINOPHILS % 0.6 % (0.0-6.0); HEMOGLOBIN 11.4 g/dL (12.0-16.0); LYMPHOCYTES # (AUTO) 3.2 (1.0-3.2); LYMPHOCYTES % 26.6 % (18.0-39.1); MEAN CORPUSCULAR HEMOGLOBIN 30.2 pg (28-32); MEAN CORPUSCULAR HGB CONC 29.2 g/dL (31-35); MEAN CORPUSCULAR VOLUME 103.2 fL (81-99); MONOCYTES # (AUTO) 0.9 (0.2-0.8); MONOCYTES % 7.2 % (4.4-11.3); NEUTROPHILS # (AUTO) 7.8 (2.1-6.9); NEUTROPHILS % 64.5 % (38.7-80.0); PLATELET COUNT 309 x10e3/uL (140-360); RED BLOOD COUNT 3.78 x10e6/uL (3.6-5.1); RED CELL DISTRIBUTION WIDTH 12.6 % (11.7-14.4)
[2020-02-18 08:45] LABS: CLARITY,URINE SL CLOUDY (CLEAR); COLOR,URINE YELLOW (YELLOW)
[2020-02-18 08:46] LABS: BILIRUBIN,URINE NEGATIVE (NEGATIVE); KETONES,URINE NEGATIVE (NEGATIVE); LEUKOCYTE ESTERASE ,URINE NEGATIVE (NEGATIVE); NITRITE,URINE NEGATIVE (NEGATIVE); PROTEIN,URINE DIPSTICK 2+ (NEGATIVE); URINE UROBILINOGEN 0.2 mg/dL (0.2 - 1)
[2020-02-18 08:47] LABS: BACTERIA,URINE RARE /HPF; EPITHELIAL CELLS,URINE FEW /LPF; RBC,URINE 0-5 /HPF (0-5); WBC,URINE (MAN) 0-5 /HPF (0-5)
[2020-02-18 09:09] LABS: ALANINE AMINOTRANSFERASE 34 IU/L (0-55); ALBUMIN 3.7 g/dL (3.5-5.0); ALBUMIN/GLOBULIN RATIO 1.3 (0.8-2.0); ALKALINE PHOSPHATASE 96 IU/L (40-150); ANION GAP 11.8 mmol/L (8-16); BLOOD UREA NITROGEN 15 mg/dL (7-26); BUN/CREATININE RATIO 24 (6-25); CALCIUM 9.6 mg/dL (8.4-10.2); CARBON DIOXIDE 39 mmol/L (22-29); CHLORIDE 92 mmol/L (98-107); CREATINE KINASE 23 IU/L (29-168); CREATININE, SERUM 0.63 mg/dL (0.57-1.11); EST GLOMERULAR FILTRATION RATE > 60 ML/MIN (60-); GLUCOSE 258 mg/dL (74-118); POTASSIUM 3.8 mmol/L (3.5-5.1); SODIUM 139 mmol/L (136-145)
[2020-02-18] MEDS ORDERED: NALOXONE HCL INJ 0.4 MG/ML AMP IV PRN (09:15)
[2020-02-18] MEDS ORDERED: CEFEPIME 1GM/NS 0.9% 50 ML 50 ML IV STA (10:04)
[2020-02-18] MEDS ORDERED: VANCOMYCIN 1GM/NS 250 ML 250 ML IV STA (10:04)
[2020-02-18] MEDS ORDERED: SUCRALFATE1 GM PO (10:29)
[2020-02-18] MEDS ORDERED: TRAZODONE HCL50 MG PO (10:29)
[2020-02-18] MEDS ORDERED: LASIX20 MG PO (10:29)
[2020-02-18] MEDS ORDERED: DIAZEPAM5 MG PO (10:29)
[2020-02-18 10:49] LABS: ABG HCO3 44 mmol/L (22-26); ABG PCO2 127 mmHg (35-45); ABG PH 7.15 (7.35-7.45); ABG PO2 99 mmHg (80-105)
[2020-02-18 10:50] LABS: ABG TCO2 48
[2020-02-18 14:23] LABS: ABG HCO3 43 mmol/L (22-26); ABG PCO2 92 mmHg (35-45); ABG PH 7.28 (7.35-7.45); ABG PO2 82 mmHg (80-105); ABG TCO2 46
[2020-02-18 16:00] VITALS: BP 92/51
[2020-02-18] MEDS ORDERED: NICOTINE 21 MG/EA PATCH TOP PRN (17:00)
[2020-02-18 17:24] VITALS: BP 92/51
[2020-02-18] MEDS ORDERED: AZITHROMYCIN 250 MG TAB PO ONE (17:30)
[2020-02-18] MEDS ORDERED: SODIUM CHLORIDE 0.9% 250ML 250 ML ONE (17:34)
[2020-02-18 17:58] LABS: CREATINE KINASE MB 2.6 ng/mL (0-5.0)
[2020-02-18] MEDS: SUCRALFATE 1 GM TAB PO SCH (18:16)
[2020-02-18] MEDS: CEFTRIAXONE SOD 1 GM/NS 50 ML 50 ML IV SCH (18:17)
[2020-02-18] MEDS: THEOPHYLLINE 200 MG TABCR PO SCH (18:17)
[2020-02-18] MEDS: DORZOLAMIDE/TIMOLOL (OPTH SOL) 10 ML DRPETTE OP SCH (18:23)
[2020-02-18] MEDS: ALBUTEROL/IPRATROPIUM 3 ML NEB NEB SCH ×2 (18:37→22:26)
[2020-02-18 18:50] LABS: FREE THYROXINE INDEX 1.9944 (1.4-3.8); THYROID STIMULATING HORMONE 0.358 uIU/mL (0.350-4.940)
[2020-02-18] MEDS: BUDESONIDE 0.5MG/2 ML NEB INH SCH (19:00)
[2020-02-18 20:00] VITALS: BP 118/59
[2020-02-18] MEDS: DIAZEPAM 5 MG TAB PO PRN (20:16)
[2020-02-18 20:27] VITALS: BP 118/59
[2020-02-18] MEDS: METHYLPREDNISOLONE SOD SUCC 40 MG/ML VIAL 1ML IV SCH (20:46)
[2020-02-19] VITALS (10 sets, daily range): BP systolic 97–145; BP diastolic 55–76
[2020-02-19] MEDS: ALBUTEROL/IPRATROPIUM 3 ML NEB NEB SCH ×7 (02:40→23:00)
[2020-02-19 05:22] LABS: BASOPHILS % 0.2 % (0.0-1.0); HEMATOCRIT 37.4 % (34.2-44.1); HEMOGLOBIN 10.9 g/dL (12.0-16.0); LYMPHOCYTES # (AUTO) 0.5 (1.0-3.2); LYMPHOCYTES % 8.4 % (18.0-39.1); MEAN CORPUSCULAR HEMOGLOBIN 30.7 pg (28-32); MEAN CORPUSCULAR HGB CONC 29.1 g/dL (31-35); MEAN CORPUSCULAR VOLUME 105.4 fL (81-99); MONOCYTES # (AUTO) 0.1 (0.2-0.8); MONOCYTES % 1.1 % (4.4-11.3); NEUTROPHILS # (AUTO) 4.9 (2.1-6.9); NEUTROPHILS % 89.9 % (38.7-80.0); PLATELET COUNT 235 x10e3/uL (140-360); RED BLOOD COUNT 3.55 x10e6/uL (3.6-5.1); RED CELL DISTRIBUTION WIDTH 12.3 % (11.7-14.4)
[2020-02-19 05:53] LABS: ALANINE AMINOTRANSFERASE 31 IU/L (0-55); ALBUMIN 3.3 g/dL (3.5-5.0); ALBUMIN/GLOBULIN RATIO 1.3 (0.8-2.0); ALKALINE PHOSPHATASE 88 IU/L (40-150); ANION GAP 9.3 mmol/L (8-16); BLOOD UREA NITROGEN 14 mg/dL (7-26); BUN/CREATININE RATIO 27 (6-25); CALCIUM 9.3 mg/dL (8.4-10.2); CHLORIDE 94 mmol/L (98-107); CREATININE, SERUM 0.52 mg/dL (0.57-1.11); EST GLOMERULAR FILTRATION RATE > 60 ML/MIN (60-); GLUCOSE 105 mg/dL (74-118); POTASSIUM 4.3 mmol/L (3.5-5.1); SODIUM 140 mmol/L (136-145)
[2020-02-19 05:56] LABS: CARBON DIOXIDE 41 mmol/L (22-29)
[2020-02-19 06:20] LABS: CREATINE KINASE MB 2.6 ng/mL (0-5.0)
[2020-02-19] MEDS: BUDESONIDE 0.5MG/2 ML NEB INH SCH ×3 (06:50→20:05)
[2020-02-19 08:01] LABS: BAND NEUTROPHILS % (MANUAL) 8 %; LYMPHOCYTES % (MANUAL) 7 % (19-48); MONOCYTES % (MANUAL) 1 % (3.4-9.0); NEUTROPHILS % (MANUAL) 84 % (40-74); RBC MORPHOLOGY COMMENT ABNORMAL
[2020-02-19 08:02] LABS: PLATELET ESTIMATE ADEQUATE; PLATELET MORPHOLOGY COMMENT NORMAL; STOMATOCYTES FEW
[2020-02-19] MEDS: PROPYLTHIOURACIL 50 MG TAB PO SCH (08:49)
[2020-02-19] MEDS: D3 PO SCH ×2 (08:49→17:00)
[2020-02-19] MEDS: MAG PO SCH ×2 (08:49→17:00)
[2020-02-19] MEDS: POLYETHYLENE GLYCOL 3350 17 GM PACK PO SCH (08:49)
[2020-02-19] MEDS: MULTIVITAMINS/MINERALS TAB PO SCH (08:49)
[2020-02-19] MEDS: [UNRECOGNIZED DRUG - OTHER] PO SCH ×2 (08:49→17:00)
[2020-02-19] MEDS: METHYLPREDNISOLONE SOD SUCC 40 MG/ML VIAL 1ML IV SCH ×2 (08:49→20:05)
[2020-02-19] MEDS: BORON PO SCH ×2 (08:49→17:00)
[2020-02-19] MEDS: DORZOLAMIDE/TIMOLOL (OPTH SOL) 10 ML DRPETTE OP SCH ×2 (08:49→18:13)
[2020-02-19] MEDS: CALC PO SCH ×2 (08:49→17:00)
[2020-02-19] MEDS: BISOPROLOL FUMARATE 10 MG TAB PO SCH (08:49)
[2020-02-19] MEDS: THEOPHYLLINE 200 MG TABCR PO SCH (08:49)
[2020-02-19] MEDS: SUCRALFATE 1 GM TAB PO SCH ×2 (08:49→18:13)
[2020-02-19] MEDS: COP PO SCH ×2 (08:49→17:00)
[2020-02-19] MEDS: MANG PO SCH ×2 (08:49→17:00)
[2020-02-19] MEDS: PANTOPRAZOLE SOD 40 MG TABEC PO SCH (08:49)
[2020-02-19] MEDS: AZITHROMYCIN 250 MG TAB PO SCH (08:50)
[2020-02-19] MEDS: AMLODIPINE BESYLATE 10 MG TAB PO SCH (08:50)
[2020-02-19] MEDS ORDERED: ACETAZOLAMIDE 250 MG TAB PO ONE (10:00)
[2020-02-19] MEDS: CEFTRIAXONE SOD 1 GM/NS 50 ML 50 ML IV SCH (18:13)
[2020-02-19] MEDS: DIAZEPAM 5 MG TAB PO PRN (20:05)
[2020-02-20] VITALS (11 sets, daily range): BP systolic 98–125; BP diastolic 59–78
[2020-02-20] MEDS: ALBUTEROL/IPRATROPIUM 3 ML NEB NEB SCH ×6 (03:00→23:20)
[2020-02-20] MEDS: DIAZEPAM 5 MG TAB PO PRN (03:06)
[2020-02-20] MEDS ORDERED: HALOPERIDOL LACTATE 5 MG/ML VIAL IM ONE (05:00)
[2020-02-20 06:45] LABS: BASOPHILS % 0.1 % (0.0-1.0); HEMATOCRIT 37.2 % (34.2-44.1); HEMOGLOBIN 10.9 g/dL (12.0-16.0); LYMPHOCYTES # (AUTO) 0.5 (1.0-3.2); LYMPHOCYTES % 3.8 % (18.0-39.1); MEAN CORPUSCULAR HEMOGLOBIN 30.3 pg (28-32); MEAN CORPUSCULAR HGB CONC 29.3 g/dL (31-35); MEAN CORPUSCULAR VOLUME 103.3 fL (81-99); MONOCYTES # (AUTO) 0.8 (0.2-0.8); NEUTROPHILS # (AUTO) 11.7 (2.1-6.9); NEUTROPHILS % 89.7 % (38.7-80.0); PLATELET COUNT 190 x10e3/uL (140-360); RED CELL DISTRIBUTION WIDTH 12.2 % (11.7-14.4)
[2020-02-20] MEDS: BUDESONIDE 0.5MG/2 ML NEB INH SCH ×2 (07:00→20:08)
[2020-02-20 07:05] LABS: ALANINE AMINOTRANSFERASE 28 IU/L (0-55); ALBUMIN 3.6 g/dL (3.5-5.0); ALBUMIN/GLOBULIN RATIO 1.3 (0.8-2.0); ALKALINE PHOSPHATASE 81 IU/L (40-150); ANION GAP 9.8 mmol/L (8-16); BLOOD UREA NITROGEN 14 mg/dL (7-26); BUN/CREATININE RATIO 23 (6-25); CALCIUM 9.7 mg/dL (8.4-10.2); CARBON DIOXIDE 38 mmol/L (22-29); CHLORIDE 96 mmol/L (98-107); EST GLOMERULAR FILTRATION RATE > 60 ML/MIN (60-); GLUCOSE 116 mg/dL (74-118); POTASSIUM 3.8 mmol/L (3.5-5.1); SODIUM 140 mmol/L (136-145)
[2020-02-20] MEDS: PANTOPRAZOLE SOD 40 MG TABEC PO SCH (07:30)
[2020-02-20] MEDS: SUCRALFATE 1 GM TAB PO SCH ×2 (07:37→17:00)
[2020-02-20] MEDS: D3 PO SCH ×2 (07:38→17:00)
[2020-02-20] MEDS: MULTIVITAMINS/MINERALS TAB PO SCH (07:38)
[2020-02-20] MEDS: MAG PO SCH ×2 (07:38→17:00)
[2020-02-20] MEDS: CALC PO SCH ×2 (07:38→17:00)
[2020-02-20] MEDS: MANG PO SCH ×2 (07:38→17:00)
[2020-02-20] MEDS: [UNRECOGNIZED DRUG - OTHER] PO SCH ×2 (07:38→17:00)
[2020-02-20] MEDS: POLYETHYLENE GLYCOL 3350 17 GM PACK PO SCH (07:38)
[2020-02-20] MEDS: BORON PO SCH ×2 (07:38→17:00)
[2020-02-20] MEDS: COP PO SCH ×2 (07:38→17:00)
[2020-02-20] MEDS: AMLODIPINE BESYLATE 10 MG TAB PO SCH (07:38)
[2020-02-20] MEDS: PROPYLTHIOURACIL 50 MG TAB PO SCH (07:39)
[2020-02-20] MEDS: BISOPROLOL FUMARATE 10 MG TAB PO SCH (07:39)
[2020-02-20] MEDS: THEOPHYLLINE 200 MG TABCR PO SCH (07:39)
[2020-02-20] MEDS: AZITHROMYCIN 250 MG TAB PO SCH (09:00)
[2020-02-20] MEDS: DORZOLAMIDE/TIMOLOL (OPTH SOL) 10 ML DRPETTE OP SCH ×2 (09:00→17:06)
[2020-02-20] MEDS: CEFTRIAXONE SOD 1 GM/NS 50 ML 50 ML IV SCH (17:37)
[2020-02-21] VITALS (15 sets, daily range): BP systolic 118–144; BP diastolic 60–79
[2020-02-21] MEDS: ALBUTEROL/IPRATROPIUM 3 ML NEB NEB SCH ×6 (03:20→23:55)
[2020-02-21] MEDS: BUDESONIDE 0.5MG/2 ML NEB INH SCH ×2 (07:00→19:00)
[2020-02-21] MEDS: PANTOPRAZOLE SOD 40 MG TABEC PO SCH (07:30)
[2020-02-21] MEDS ORDERED: METHYLPREDNISOLONE SOD SUCC 40 MG/ML VIAL 1ML IV SCH (07:30)
[2020-02-21] MEDS: MAG PO SCH ×2 (08:43→16:49)
[2020-02-21] MEDS: PROPYLTHIOURACIL 50 MG TAB PO SCH (08:43)
[2020-02-21] MEDS: [UNRECOGNIZED DRUG - OTHER] PO SCH ×2 (08:43→16:49)
[2020-02-21] MEDS: MULTIVITAMINS/MINERALS TAB PO SCH (08:43)
[2020-02-21] MEDS: D3 PO SCH ×2 (08:43→16:49)
[2020-02-21] MEDS: CALC PO SCH ×2 (08:43→16:49)
[2020-02-21] MEDS: MANG PO SCH ×2 (08:43→16:49)
[2020-02-21] MEDS: SUCRALFATE 1 GM TAB PO SCH ×2 (08:43→16:50)
[2020-02-21] MEDS: BORON PO SCH ×2 (08:43→16:49)
[2020-02-21] MEDS: AMLODIPINE BESYLATE 10 MG TAB PO SCH (08:43)
[2020-02-21] MEDS: POLYETHYLENE GLYCOL 3350 17 GM PACK PO SCH (08:43)
[2020-02-21] MEDS: COP PO SCH ×2 (08:43→16:49)
[2020-02-21] MEDS: AZITHROMYCIN 250 MG TAB PO SCH (08:44)
[2020-02-21] MEDS: DORZOLAMIDE/TIMOLOL (OPTH SOL) 10 ML DRPETTE OP SCH ×2 (08:44→16:49)
[2020-02-21] MEDS: THEOPHYLLINE 200 MG TABCR PO SCH (08:44)
[2020-02-21] MEDS: BISOPROLOL FUMARATE 10 MG TAB PO SCH (08:44)
[2020-02-21] MEDS ORDERED: HALOPERIDOL 1 MG TAB PO PRN (10:00)
[2020-02-21] MEDS: CEFTRIAXONE SOD 1 GM/NS 50 ML 50 ML IV SCH (16:51)
[2020-02-22] VITALS (7 sets, daily range): BP systolic 106–132; BP diastolic 57–88
[2020-02-22] MEDS: ALBUTEROL/IPRATROPIUM 3 ML NEB NEB SCH ×6 (03:00→23:05)
[2020-02-22] MEDS: BUDESONIDE 0.5MG/2 ML NEB INH SCH ×2 (06:30→19:35)
[2020-02-22] MEDS: DORZOLAMIDE/TIMOLOL (OPTH SOL) 10 ML DRPETTE OP SCH ×2 (08:15→16:56)
[2020-02-22] MEDS: D3 PO SCH ×2 (08:16→16:56)
[2020-02-22] MEDS: BORON PO SCH ×2 (08:16→16:56)
[2020-02-22] MEDS: POLYETHYLENE GLYCOL 3350 17 GM PACK PO SCH (08:16)
[2020-02-22] MEDS: MAG PO SCH ×2 (08:16→16:56)
[2020-02-22] MEDS: COP PO SCH ×2 (08:16→16:56)
[2020-02-22] MEDS: [UNRECOGNIZED DRUG - OTHER] PO SCH ×2 (08:16→16:56)
[2020-02-22] MEDS: MANG PO SCH ×2 (08:16→16:56)
[2020-02-22] MEDS: CALC PO SCH ×2 (08:16→16:56)
[2020-02-22] MEDS: MULTIVITAMINS/MINERALS TAB PO SCH (08:47)
[2020-02-22] MEDS: SUCRALFATE 1 GM TAB PO SCH ×2 (08:47→16:56)
[2020-02-22] MEDS: PANTOPRAZOLE SOD 40 MG TABEC PO SCH (08:47)
[2020-02-22] MEDS: PREDNISONE 10 MG TAB PO SCH (08:47)
[2020-02-22] MEDS: AMLODIPINE BESYLATE 10 MG TAB PO SCH (08:47)
[2020-02-22] MEDS: PROPYLTHIOURACIL 50 MG TAB PO SCH (08:47)
[2020-02-22] MEDS: THEOPHYLLINE 200 MG TABCR PO SCH (08:48)
[2020-02-22] MEDS: AZITHROMYCIN 250 MG TAB PO SCH (08:48)
[2020-02-22] MEDS: BISOPROLOL FUMARATE 10 MG TAB PO SCH (08:48)
[2020-02-22] MEDS ORDERED: ACETAZOLAMIDE 250 MG TAB PO ONE ×2 (13:45→17:00)
[2020-02-22] MEDS: CEFTRIAXONE SOD 1 GM/NS 50 ML 50 ML IV SCH (17:13)
[2020-02-22] MEDS ORDERED: SODIUM CHLORIDE 0.9% 250ML 250 ML ONE (17:21)
[2020-02-23] VITALS: BP 102/53
[2020-02-23] MEDS: ALBUTEROL/IPRATROPIUM 3 ML NEB NEB SCH ×3 (03:00→10:43)
[2020-02-23 04:00] VITALS: BP 107/59
[2020-02-23] MEDS: BUDESONIDE 0.5MG/2 ML NEB INH SCH (07:00)
[2020-02-23] MEDS: PANTOPRAZOLE SOD 40 MG TABEC PO SCH (08:30)
[2020-02-23 08:34] VITALS: BP 136/78
[2020-02-23] MEDS: DORZOLAMIDE/TIMOLOL (OPTH SOL) 10 ML DRPETTE OP SCH (09:00)
[2020-02-23] MEDS: MAG PO SCH (09:00)
[2020-02-23] MEDS: POLYETHYLENE GLYCOL 3350 17 GM PACK PO SCH (09:00)
[2020-02-23] MEDS: MANG PO SCH (09:00)
[2020-02-23] MEDS: BORON PO SCH (09:00)
[2020-02-23] MEDS: [UNRECOGNIZED DRUG - OTHER] PO SCH (09:00)
[2020-02-23] MEDS: COP PO SCH (09:00)
[2020-02-23] MEDS: D3 PO SCH (09:00)
[2020-02-23] MEDS: PROPYLTHIOURACIL 50 MG TAB PO SCH (09:00)
[2020-02-23] MEDS: CALC PO SCH (09:00)
[2020-02-23 09:42] VITALS: BP 136/78
[2020-02-23] MEDS: BISOPROLOL FUMARATE 10 MG TAB PO SCH (10:00)
[2020-02-23] MEDS: MULTIVITAMINS/MINERALS TAB PO SCH (10:00)
[2020-02-23] MEDS: AZITHROMYCIN 250 MG TAB PO SCH (10:00)
[2020-02-23] MEDS: PREDNISONE 10 MG TAB PO SCH (10:00)
[2020-02-23] MEDS: THEOPHYLLINE 200 MG TABCR PO SCH (10:00)
[2020-02-23] MEDS: SUCRALFATE 1 GM TAB PO SCH (10:00)
[2020-02-23] MEDS: AMLODIPINE BESYLATE 10 MG TAB PO SCH (10:00)
[2020-02-23] MEDS ORDERED: MORPHINE SULFATE 2 MG/ML SYR 1ML IV PRN (11:15)
== END 2020-02-23 11:53 | disposition hospice, home (50) | DRG 193 ==
LOC: ER 08:21 → ERHOLD 13:19 → IMCU 16:30 → MED/SURG 02-22 14:49
PROVIDERS: ADMIT Family Medicine; ATTEND Family Medicine
DX: J15.9 Unspecified bacterial pneumonia (principal); J96.21 Acute and chronic respiratory failure with hypoxia; I62.02 Nontraumatic subacute subdural hemorrhage; J96.22 Acute and chronic respiratory failure with hypercapnia; G93.1 Anoxic brain damage, not elsewhere classified; J44.1 Chronic obstructive pulmonary disease with (acute) exacerbation; Z66 Do not resuscitate; W19.XXXA Unspecified fall, initial encounter; Z99.81 Dependence on supplemental oxygen; E03.9 Hypothyroidism, unspecified
CPT/HCPCS: 36415; 36600; 70450; 71045; 80053; 80198; 81001; 82550; 82553; 82607; 82746; 82805; 83605; 83921; 84436; 84443; 84479; 84484; 85025; 87040; 93005; 94640; 94660; 97139; 99251; 99285; J0692; J0696; J1630; J2270; J2310; J2920; J3370; J7050; J7512; U0002